=== PATIENT | male | born 1935 | race Caucasian/White ===

== ENCOUNTER 2017-03-17 10:21 | Inpatient (IN) | payer MEDICARE, BC ==
[2017-03-17] MEDS ORDERED: ACETAMINOPHEN IV (For NPO) 1,000 MG in EMPTY BAG 1 BAG IVPB STA (10:26)
[2017-03-17] MEDS ORDERED: SODIUM CHLORIDE 0.9% 1,000 ML IV STA ×2 (10:26)
[2017-03-17] MEDS ORDERED: ONDANSETRON 4 MG/2 ML VIAL IVP STA (10:26)
[2017-03-17] MEDS ORDERED: IPRATROPIUM-ALBUTEROL 3 ML NEB INHALATION STA (10:29)
--- NOTE | 2017-03-17 10:29 | ED ---
General Adult HPI - General Chief complaint: Abdominal Pain Stated complaint: Abd Pain, Headache Time Seen by Provider: 03/17/17 10:26 Source: patient, RN notes reviewed, old records reviewed Mode of arrival: wheelchair Limitations: no limitations - History of Present Illness Initial comments: This is a 82-year-old male to the ER for evaluation. Patient presents today for evaluation regarding fever. Patient also complains of Bowel pain, headache. Patient denies diarrhea, no nausea or vomiting. Patient has had occasional cough but no significant shortness of breath. No chest pain. Patient has no recent change in medication. Patient is denying any shortness of breath. No diarrhea. No vomiting. No travel history no sick contacts are known. - Related Data Home Medications Medication Instructions Recorded Confirmed Atorvastatin [Lipitor] 20 mg PO QAM 03/19/15 03/17/17 Latanoprost 1 drop BOTH EYES HS 03/19/15 03/17/17 Lisinopril-Hctz 20-25 mg 0.5 tab PO DAILY 03/19/15 03/17/17 [Zestoretic 20-25] Verapamil Sr [Isoptin Sr] 240 mg PO DAILY 03/19/15 03/17/17 glipiZIDE [Glipizide Xl] 10 mg PO DAILY 03/19/15 03/17/17 predniSONE [Prednisone] 5 mg PO DAILY 03/19/15 03/17/17 Vit C/E/Zn/Coppr/Lutein/Zeaxan 1 cap PO BID 03/17/17 03/17/17 [Preservision Areds 2 Softgel] Allergies Allergy/AdvReac Type Severity Reaction Status Date / Time No Known Allergies Allergy Verified 03/17/17 11:11 Review of Systems ROS Statement: Those systems with pertinent positive or pertinent negative responses have been documented in the HPI. ROS Other: All systems not noted in ROS Statement are negative. Past Medical History Past Medical History: Atrial Fibrillation, Coronary Artery Disease (CAD), Cancer , COPD, Diabetes Mellitus, GERD/Reflux, Hyperlipidemia, Hypertension, Myocardial Infarction ([place]), Osteoarthritis (OA), Prostate Disorder, Renal Disease Additional Past Medical History / Comment(s): chronic and recurrent urinary tract infections,diverticulitis, previous history of bowel perforation had a colostomt since reversed, BPH,renal cancer(lt), skin cancer, tremors(non parkinsons),glaucoma ,chronic back pain, bronchits,emphysemas, uses 02 2 liters n/c prn, hiatal hernia, constipation-last bm 2 days ago, PNE VACCINE AFTER THE AGE OF 65-NOT SURE OF DATE Last Myocardial Infarction Date:: 1996? History of Any Multi-Drug Resistant Organisms: None Reported Past Surgical History: Appendectomy, Bowel Resection, Heart Catheterization With Stent, Hernia Repair, Prostate Surgery Additional Past Surgical History / Comment(s): nephrectomy(lt), lung bx-neg,x2 cardiac stents -per pts thinks it around 1996, basal cell skin ca removed, cheryl cataracts,bowel sx 8 inches removed had colostomy since removed past med hx stated still has metal clip left in place.skin grafts rt arm-pt fell into hot tar on construction site. Past Anesthesia/Blood Transfusion Reactions: No Reported Reaction Date of Last Stent Placement:: NA Past Psychological History: No Psychological Hx Reported Smoking Status: Former smoker Past Alcohol Use History: Rare Past Drug Use History: None Reported - Past Family History Father Family Medical History: Osteoarthritis (OA), Pneumonia Additional Family Medical History / Comment(s): from pne after hip sx Mother Family Medical History: Cancer Additional Family Medical History / Comment(s): throat cancer General Exam Limitations: no limitations General appearance: alert, in no apparent distress Head exam: Present: atraumatic, normocephalic, normal inspection Eye exam: Present: normal appearance, PERRL, EOMI. Absent: scleral icterus, conjunctival injection, periorbital swelling ENT exam: Present: normal exam, mucous membranes moist Neck exam: Present: normal inspection, tenderness (Generalized). Absent: meningismus, lymphadenopathy Respiratory exam: Present: normal lung sounds bilaterally. Absent: respiratory distress, wheezes, rales, rhonchi, stridor Cardiovascular Exam: Present: normal rhythm, tachycardia, normal heart sounds. Absent: systolic murmur, diastolic murmur, rubs, gallop, clicks GI/Abdominal exam: Present: soft, normal bowel sounds. Absent: distended, tenderness, guarding, rebound, rigid Extremities exam: Present: normal inspection, full ROM, normal capillary refill. Absent: tenderness, pedal edema, joint swelling, calf tenderness Back exam: Present: normal inspection Neurological exam: Present: alert, oriented X3, CN II-XII intact Psychiatric exam: Present: normal affect, normal mood Skin exam: Present: warm, dry, intact, normal color. Absent: rash Course Vital Signs 03/17/17 03/17/17 03/17/17 10:21 11:16 11:25 Temperature 100.5 F H 100.1 F H Pulse Rate 145 H 130 H 126 H Respiratory 18 18 Rate Blood Pressure 123/73 123/63 O2 Sat by Pulse 92 L 94 L Oximetry 03/17/17 03/17/17 03/17/17 11:34 12:15 12:45 Temperature 99.8 F H Pulse Rate 130 H 133 H 124 H Respiratory 26 H 26 H Rate Blood Pressure 90/42 102/51 O2 Sat by Pulse 95 94 L Oximetry EKG Findings - EKG Comments: EKG Findings:: EKG shows sinus tachycardia rate of 142, MD 118, QRS 78, QTC 452 Medical Decision Making - Medical Decision Making 8 emailed the ER for reevaluation of fever and abdominal pain, persistent urinary tract infection, fever. We'll admit for monitoring of hemodynamic status, IV resuscitation and IV antibiotics - Lab Data Result diagrams: 03/17/17 10:36 03/17/17 10:36 Lab Results 03/17/17 03/17/17 03/17/17 Range/Units 10:36 10:36 10:36 WBC 24.5 H (3.8-10.6) k/uL RBC 5.26 (4.30-5.90) m/uL Hgb 16.4 (13.0-17.5) gm/dL Hct 48.1 (39.0-53.0) % MCV 91.4 (80.0-100.0) fL MCH 31.3 (25.0-35.0) pg MCHC 34.2 (31.0-37.0) g/dL RDW 14.7 (11.5-15.5) % Plt Count 136 L (150-450) k/uL Neutrophils % 87 % Lymphocytes % 6 % Monocytes % 5 % Eosinophils % 0 % Basophils % 0 % Neutrophils # 21.4 H (1.3-7.7) k/uL Lymphocytes # 1.5 (1.0-4.8) k/uL Monocytes # 1.3 H (0-1.0) k/uL Eosinophils # 0.0 (0-0.7) k/uL Basophils # 0.1 (0-0.2) k/uL PT (9.0-12.0) sec INR (<1.2) APTT (22.0-30.0) sec Sodium 138 (137-145) mmol/L Potassium 4.7 (3.5-5.1) mmol/L Chloride 102 (98-107) mmol/L Carbon Dioxide 25 (22-30) mmol/L Anion Gap 11 mmol/L BUN 29 H (9-20) mg/dL Creatinine 1.37 H (0.66-1.25) mg/dL Est GFR (MDRD) Af Amer >60 (>60 ml/min/1.73 sqM) Est GFR (MDRD) Non-Af 50 (>60 ml/min/1.73 sqM) Glucose 167 H (74-99) mg/dL Plasma Lactic Acid Jak (0.7-2.0) mmol/L Calcium 9.2 (8.4-10.2) mg/dL Total Bilirubin 2.0 H (0.2-1.3) mg/dL AST 27 (17-59) U/L ALT 34 (21-72) U/L Alkaline Phosphatase 76 (38-126) U/L Total Creatine Kinase 23 L (55-170) U/L CK-MB (CK-2) 0.8 (0.0-2.4) ng/mL CK-MB (CK-2) Rel Index 3.5 Troponin I <0.012 (0.000-0.034) ng/mL Total Protein 6.4 (6.3-8.2) g/dL Albumin 3.8 (3.5-5.0) g/dL Amylase 64 (30-110) U/L Lipase 66 (23-300) U/L Urine Color Urine Appearance (Clear) Urine pH (5.0-8.0) Ur Specific [place] (1.001-1.035) Urine Protein (Negative) Urine Glucose (UA) (Negative) Urine Ketones (Negative) Urine Blood (Negative) Urine Nitrite (Negative) Urine Bilirubin (Negative) Urine Urobilinogen (<2.0) mg/dL Ur Leukocyte Esterase (Negative) Urine RBC (0-5) /hpf Urine WBC (0-5) /hpf Urine WBC Clumps (None) /hpf Urine Bacteria (None) /hpf Urine Mucus (None) /hpf 03/17/17 03/17/17 03/17/17 Range/Units 10:36 10:36 10:50 WBC (3.8-10.6) k/uL RBC (4.30-5.90) m/uL Hgb (13.0-17.5) gm/dL Hct (39.0-53.0) % MCV (80.0-100.0) fL MCH (25.0-35.0) pg MCHC (31.0-37.0) g/dL RDW (11.5-15.5) % Plt Count (150-450) k/uL Neutrophils % % Lymphocytes % % Monocytes % % Eosinophils % % Basophils % % Neutrophils # (1.3-7.7) k/uL Lymphocytes # (1.0-4.8) k/uL Monocytes # (0-1.0) k/uL Eosinophils # (0-0.7) k/uL Basophils # (0-0.2) k/uL PT 11.8 (9.0-12.0) sec INR 1.2 H (<1.2) APTT 26.3 (22.0-30.0) sec Sodium (137-145) mmol/L Potassium (3.5-5.1) mmol/L Chloride (98-107) mmol/L Carbon Dioxide (22-30) mmol/L Anion Gap mmol/L BUN (9-20) mg/dL Creatinine (0.66-1.25) mg/dL Est GFR (MDRD) Af Amer (>60 ml/min/1.73 sqM) Est GFR (MDRD) Non-Af (>60 ml/min/1.73 sqM) Glucose (74-99) mg/dL Plasma Lactic Acid Jak 2.3 H* (0.7-2.0) mmol/L Calcium (8.4-10.2) mg/dL Total Bilirubin (0.2-1.3) mg/dL AST (17-59) U/L ALT (21-72) U/L Alkaline Phosphatase (38-126) U/L Total Creatine Kinase (55-170) U/L CK-MB (CK-2) (0.0-2.4) ng/mL CK-MB (CK-2) Rel Index Troponin I (0.000-0.034) ng/mL Total Protein (6.3-8.2) g/dL Albumin (3.5-5.0) g/dL Amylase (30-110) U/L Lipase (23-300) U/L Urine Color Yellow Urine Appearance Turbid (Clear) Urine pH 5.5 (5.0-8.0) Ur Specific [place] 1.018 (1.001-1.035) Urine Protein 2+ H (Negative) Urine Glucose (UA) Trace H (Negative) Urine Ketones Negative (Negative) Urine Blood Moderate H (Negative) Urine Nitrite Positive (Negative) Urine Bilirubin Negative (Negative) Urine Urobilinogen <2.0 (<2.0) mg/dL Ur Leukocyte Esterase Large H (Negative) Urine RBC 49 H (0-5) /hpf Urine WBC >182 H (0-5) /hpf Urine WBC Clumps Many H (None) /hpf Urine Bacteria Rare H (None) /hpf Urine Mucus Rare H (None) /hpf - Radiology Data Radiology results: report reviewed (Chest x-ray shows possible pneumonia CT abdomen and pelvis is negative for abdominal disease), image reviewed Critical Care Time Critical Care Time: Yes Total Critical Care Time: 31 Disposition Clinical Impression: Abdominal pain, Fever of unknown origin, UTI (urinary tract infection), COPD ( chronic obstructive pulmonary disease), Fever Disposition: ADMITTED IP TO THIS HOSP Condition: Serious
[2017-03-17 10:59] LABS: ALT 34 U/L (21-72); AST 27 U/L (17-59); Alkaline Phosphatase 76 U/L (38-126); Amylase 64 U/L (30-110); Anion Gap 11 mmol/L; Blood Urea Nitrogen 29 mg/dL (9-20); Calcium 9.2 mg/dL (8.4-10.2); Carbon Dioxide 25 mmol/L (22-30); Chloride 102 mmol/L (98-107); Glucose 167 mg/dL (74-99); Non-African American GFR(MDRD) 50 (>60 ml/min/1.73 sqM); Sodium 138 mmol/L (137-145); Total Protein 6.4 g/dL (6.3-8.2)
[2017-03-17 11:02] LABS: INR 1.2 (<1.2); Partial Thromboplastin Time 26.3 sec (22.0-30.0); Prothrombin Time 11.8 sec (9.0-12.0)
[2017-03-17 11:03] LABS: Potassium 4.7 mmol/L (3.5-5.1)
[2017-03-17 11:04] LABS: Appearance,Urine Turbid (Clear); Bacteria,Urine Rare /hpf; Bilirubin,Urine Negative (Negative); Glucose,Urine (UA) Trace (Negative); Ketones,Urine Negative (Negative); Leukocyte Esterase,Urine Large (Negative); Mucus,Urine Rare /hpf; Nitrite,Urine Positive (Negative); PH, Urine 5.5 (5.0-8.0); Particle Count 10954; Protein,Urine 2+ (Negative); RBC,Urine 49 /hpf (0-5); Specific Gravity,Urine 1.018 (1.001-1.035); UA Billing (MACRO vs. MICRO) MICRO; Urobilinogen,Urine <2.0 mg/dL (<2.0); WBC,Urine >182 /hpf (0-5)
--- NOTE | 2017-03-17 11:10 | XR ---
EXAMINATION TYPE: XR abdomen acute w cxr DATE OF EXAM: 03/17/2017 COMPARISON: 06/18/2016 HISTORY: Body aches and fever TECHNIQUE: Supine, upright, and left side down lateral decubitus views of the abdomen are obtained. FINDINGS: Left lower lobe infiltrate and small effusion. Hyperinflation suggests COPD. Arthropathy of the shoulders. Atherosclerotic change of the aorta. Postsurgical changes in the abdomen and pelvis. Arthropathy of the hips and vascular calcifications n oted. Degenerative change of the spine. Bowel gas pattern nonspecific with no diagnostic evidence of obstruction. IMPRESSION: 1. Nonspecific abdomen. 2. Left lower lobe atelectasis or early infiltrate. Correlate clinically..
[2017-03-17 11:12] LABS: Basophils # (A) 0.1 k/uL (0-0.2); Basophils % (A) 0 %; CH 31.7; CHCM 34.9; Eosinophils % (A) 0 %; HCT 48.1 % (39.0-53.0); HDW 3.16; HGB 16.4 gm/dL (13.0-17.5); Luc # (Auto) 0.19; Luc % (Auto) 1; Lymphocytes # (A) 1.5 k/uL (1.0-4.8); Lymphocytes % (A) 6 %; MCH 31.3 pg (25.0-35.0); MCHC 34.2 g/dL (31.0-37.0); MCV 91.4 fL (80.0-100.0); Mean Platelet Volume 7.1; Monocytes # (A) 1.3 k/uL (0-1.0); Monocytes % (A) 5 %; Neutrophils # (A) 21.4 k/uL (1.3-7.7); Neutrophils % (A) 87 %; RBC 5.26 m/uL (4.30-5.90); RDW 14.7 % (11.5-15.5); WBC 24.5 k/uL (3.8-10.6); WBC (Perox) 24.32
[2017-03-17 11:15] LABS: Creatine Kinase 23 U/L (55-170)
[2017-03-17 11:28] LABS: Creatine Kinase MB 0.8 ng/mL (0.0-2.4); Troponin I <0.012 ng/mL (0.000-0.034)
[2017-03-17] MEDS ORDERED: cefTRIAXone 2,000 MG in SODIUM CHLORIDE 0.9% 100 ML IVPB STA (11:30)
[2017-03-17] MEDS ORDERED: RX INFO: IV CONTRAST WAS GIVEN 1 EACH MISC MISCELLANE PRN (11:30)
[2017-03-17] MEDS ORDERED: IPRATROPIUM-ALBUTEROL 3 ML NEB INHALATION PRN (12:14)
[2017-03-17] MEDS: SODIUM CHLORIDE 0.9% 500 ML IV SCH ×3 (12:21→13:25)
--- NOTE | 2017-03-17 12:39 | CT ---
EXAMINATION TYPE: CT abdomen pelvis w con DATE OF EXAM: 03/17/2017 COMPARISON: Prior CT 04/18/2016 HISTORY: Abdominal pain CT DLP: 634.5 mGycm Automated exposure control for dose reduction was used. TECHNIQUE: Helical acquisition of images from the lung bases through the pelvis have been completed. CONTRAST: Performed with IV Contrast, patient injected with 80 mL of Visipaque 320. FINDINGS: LUNG BASES: Extensive scarring is again noted as on previous exam. AORTA: Atheromatous changes are present. LIVER/GB: Liver shows low attenuation possibly due to fatty infiltration and there are hypodense foci within the left lobe which are subcentimeter in size of questionable clinical significance, gallblad linda is unremarkable. PANCREAS: No significant abnormality is seen. SPLEEN: The spleen is enlarged. ADRENALS: No significant abnormality is seen. KIDNEYS: Patient is status post left nephrectomy, surgical clips are present in the left upper quadra nt. Right kidney shows no mass or hydronephrosis. REPRODUCTIVE ORGANS: Prostate gland is enlarged. Suspect a small left inguinal hernia. In the right i nguinal region there is a stable inflammatory appearance. BOWEL: No significant abnormality is seen. FREE AIR: No Free Air visible. ASCITES: None visible. PELVIC ADENOPATHY: None visualized. RETROPERITONEAL ADENOPATHY: No Retroperitoneal Adenopathy visible. URINARY BLADDER: Shows an abnormally thickened wall, suspect a diverticulum to the left of midline. Multiple surgical clips again noted in the pelvis. OSSEOUS STRUCTURES: Stable Surgical clips scattered in the abdomen IMPRESSION: POSTOP CHANGES. SPLENOMEGALY. FINDINGS COMPATIBLE WITH CHRONIC BLADDER OUTLET OBSTRUCTION. ESSENTIALL Y STABLE EXAM.
[2017-03-17] MEDS: SODIUM CHLORIDE 0.9% 1,000 ML IV SCH (13:36)
[2017-03-17 16:52] LABS: Glucose,Whole Blood 152 mg/dL (75-99)
[2017-03-17] MEDS: VIT A,C & E-LUTEIN-MINERALS 1 EACH TAB PO SCH (17:11)
[2017-03-17] MEDS: ACETAMINOPHEN TAB 325 MG TAB PO PRN ×2 (18:09→23:27)
[2017-03-17 21:07] LABS: Glucose,Whole Blood 186 mg/dL (75-99)
[2017-03-17] MEDS: LATANOPROST 0.005% OPHTH DROPS 2.5 ML BTL BOTH EYES SCH (21:29)
[2017-03-17] MEDS: HYDROCORTISONE SUCCINATE 100 MG/2 ML VIAL IV SCH (21:30)
[2017-03-17 21:39] LABS: Hemoglobin A1C 5.8 % (4.2-6.1)
--- NOTE | 2017-03-17 21:48 | HP ---
HISTORY AND PHYSICAL DATE OF ADMISSION: 03/17/2017 PRESENTING COMPLAINT: Fever. HISTORY OF PRESENTING COMPLAINT: This is an 82-year-old patient who follows with Dr. Morocho. Chronic stable medical conditions include hyperlipidemia, COPD, hypertension, GERD, coronary artery disease with stent, osteoarthritis. The patient presents with 2 days of increasing fever, nausea, lower abdominal pain, difficulty in urine, some chills. Patient found to have rather infected-appearing urine in the ER, septic picture. Started on IV fluids, antibiotics and admitted for the same. REVIEW OF SYSTEMS: CONSTITUTIONAL: Weak, tired, nausea. HEENT: None. RESPIRATORY: None. CARDIOVASCULAR as above. GASTROINTESTINAL: As above. GENITOURINARY: As above. MUSCULOSKELETAL: Pain in the joints. DERMATOLOGICAL: None. HEMATOLOGICAL: None. LYMPHATIC: None. PSYCHIATRY: None. NEUROLOGICAL none. PAST MEDICAL HISTORY: Hypertension, COPD, hypertension, hyperlipidemia, GERD, coronary artery disease with stent, osteoarthritis. Past medical history also includes kidney disease, recurrent UTI, diverticulitis, BPH with prostatectomy, left renal cancer, tremors, right eye macular degeneration, chronic low back pain, home oxygen on 2L, hiatal hernia. PAST SURGICAL HISTORY: Appendectomy, bowel resection, cardiac cath with stent, hernia repair, left nephrectomy, lung biopsy negative, prostatectomy, 2 cardiac stents, basal cell cancer, 8 inches of bowel removed, left inguinal hernia repair, skin graft right arm. SOCIAL HISTORY: , raising an 8-year-old grandson who has autism and blindness. Patient smoked for 30 years, 1 pack a day, stopped in 1987. FAMILY HISTORY: Osteoarthritis. HOME MEDICATIONS: 1. PreserVision AREDS 2 soft gel 1 capsule p.o. b.i.d. 2. Prednisone 5 mg p.o. daily. 3. Glipizide XL 10 mg p.o. daily. 4. Verapamil SR 240 mg daily. 5. Zestoretic 20/25, 1/2 tablet daily. 6. Latanoprost 1 drop to both eyes q.h.s. 7. Lipitor 20 mg daily. ALLERGIES: None. PHYSICAL EXAMINATION: VITAL SIGNS: On presentation, temperature 100.5, pulse 145, respirations 18, blood pressure 123/73, pulse ox 92% room air. GENERAL APPEARANCE: Average built, lying in bed, not in distress. EYES: Pupils equal. Conjunctivae normal. HEENT: Oral cavity normal. NECK: JVD not raised. Mass not palpable. RESPIRATORY: Effort normal. LUNGS: Slightly decreased breath sounds. CARDIOVASCULAR: 1st and 2nd sounds normal. No edema. ABDOMEN: Suprapubic tenderness. No guarding or rigidity. Liver, spleen not palpable. LYMPHATIC: No lymph node palpable in neck or axillae. PSYCHIATRY: Alert and oriented x3. Mood and affect were normal. NEUROLOGICAL: Pupils appear grossly intact. Power and sensation grossly intact. Some baseline tremors are present. INVESTIGATIONS: White count 24.5, hemoglobin 16.4. Potassium 4.7, BUN 29, creatinine 1.37. Patient's BUN and creatinine are 17/1.3. ASSESSMENT: 1. Acute urinary tract infection with severe sepsis, present on admission. 2. Acute renal failure probably from sepsis with lactic acidosis. 3. Coronary artery disease, prior history of stent. 4. Gastroesophageal reflux disease. 5. Hyperlipidemia. 6. Essential hypertension. 7. Primary osteoarthritis, multiple joints, bilateral. 8. 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 9. Essential tremors. 10.Chronic low back pain. 11.Hiatal hernia. 12.Chronic hypoxic respiratory failure, uses 2L oxygen at home, from underlying chronic obstructive pulmonary disease. 13.Chronic obstructive pulmonary disease in an ex-smoker. 14.Probable acute cystitis from urinary tract infection. PLAN: Home medications are resumed. Accu-Cheks will be followed. Will give the patient a stress dose of steroids. The patient is on IV ceftriaxone for antibiotics, also getting IV fluids. Care was discussed with the patient. Questions were answered. Will get a surgical opinion given the patient's lower abdominal pain. Most likely, appears to be from cystitis. MMODL / IJN: [id number] /
[2017-03-18 01:38] LABS: Basophils % (A) 0 %; CH 32.3; CHCM 34.9; Eosinophils % (A) 0 %; HCT 40.5 % (39.0-53.0); HDW 3.31; HGB 13.6 gm/dL (13.0-17.5); Luc % (Auto) 1; Lymphocytes # (A) 0.6 k/uL (1.0-4.8); Lymphocytes % (A) 3 %; MCH 31.5 pg (25.0-35.0); MCHC 33.7 g/dL (31.0-37.0); MCV 93.5 fL (80.0-100.0); Mean Platelet Volume 7.1; Monocytes # (A) 0.6 k/uL (0-1.0); Monocytes % (A) 4 %; Neutrophils # (A) 15.7 k/uL (1.3-7.7); Neutrophils % (A) 92 %; RBC 4.33 m/uL (4.30-5.90); RDW 15.8 % (11.5-15.5); WBC (Perox) 18.36
[2017-03-18 02:30] LABS: Anion Gap 7 mmol/L; Blood Urea Nitrogen 20 mg/dL (9-20); Calcium 7.5 mg/dL (8.4-10.2); Carbon Dioxide 24 mmol/L (22-30); Chloride 109 mmol/L (98-107); Glucose 204 mg/dL (74-99); Non-African American GFR(MDRD) 56 (>60 ml/min/1.73 sqM); Potassium 4.5 mmol/L (3.5-5.1); Sodium 140 mmol/L (137-145)
[2017-03-18 06:01] LABS: Glucose,Whole Blood 116 mg/dL (75-99)
[2017-03-18] MEDS: SODIUM CHLORIDE 0.9% 1,000 ML IV SCH ×4 (06:59→16:43)
[2017-03-18] MEDS: glipiZIDE 5 MG TAB PO SCH ×2 (07:00→16:48)
[2017-03-18] MEDS: HYDROCORTISONE SUCCINATE 100 MG/2 ML VIAL IV SCH ×3 (07:00→23:51)
[2017-03-18] MEDS: INSULIN LISPRO (humaLOG) 300 UNIT/3 ML VIAL SQ SCH ×4 (07:01→20:38)
[2017-03-18] MEDS: VIT A,C & E-LUTEIN-MINERALS 1 EACH TAB PO SCH ×2 (07:01→16:49)
[2017-03-18] MEDS: ENOXAPARIN 40 MG/0.4 ML SYRINGE SQ SCH (07:48)
[2017-03-18] MEDS: VERAPAMIL SR 240 MG TABLET.ER PO SCH (07:49)
[2017-03-18] MEDS: ATORVASTATIN 20 MG TAB PO SCH (07:49)
[2017-03-18] MEDS ORDERED: LISINOPRIL-HCTZ 20-25 MG 1 EACH TAB PO SCH (09:00)
--- NOTE | 2017-03-18 10:52 | P.GSCN ---
History of Present Illness Consult date: 03/18/17 Reason for Consult: Abdominal pain History of present illness: 82-year-old gentleman seen and examined at the request of the attending for surgical eval abdominal pain. Patient states for the last several days he has been experiencing lower abdominal pain difficulty in urinating fever chills and a nausea sensation. Patient presented to the emergency room on March 17 with a chief complaint of developing abdominal pain "I just did not feel well. Patient denied any chest pain dizziness lightheadedness or shortness of breath. Patient denied any change in bowel habit denied diarrhea loose stools constipation no nausea no vomiting. did report having a sensation of fever at home did not take his temperature in the emergency room the temp was noted to be 100.5 tachycardic heart rate in the 140s white count was elevated 24.4. Patient was seen in the emergency room started on IV resuscitation and IV antibiotics admitted for fever with abdominal pain patient was treated for sepsis suspect due to the persistent urinary tract infection CAT scan of the abdomen and pelvis with contrast report showed postop changes findings compatible with chronic bladder outlet obstruction essentially stable exam. Patient does have a history of having a left nephrectomy for cancer done at [facility] several years ago. Additionally states greater than 20 years ago had abdominal surgery on the bowel not certain of the details no other surgical procedures except as mentioned Review of Systems Essentially unremarkable except as mentioned in the present illness Past Medical History Past Medical History: Atrial Fibrillation, Coronary Artery Disease (CAD), Cancer , COPD, Eye Disorder, GERD/Reflux, Hyperlipidemia, Hypertension, Myocardial Infarction ([place]), Osteoarthritis (OA), Pneumonia, Renal Disease, Respiratory Disorder Additional Past Medical History / Comment(s): chronic and recurrent urinary tract infections, UTI with sepsis, diverticulitis, previous history of bowel perforation had a colostomy since reversed, BPH-prostatectomy, renal cancer (lt) , skin cancer with removal, tremors(non parkinsons), bilateral glaucoma, R eye macular degeneration, chronic back pain, bronchits, uses 02 2 liters n/c prn, hiatal hernia. Last Myocardial Infarction Date:: 1999 History of Any Multi-Drug Resistant Organisms: None Reported Past Surgical History: Appendectomy, Bowel Resection, Heart Catheterization With Stent, Hernia Repair, Prostate Surgery Additional Past Surgical History / Comment(s): nephrectomy(lt), lung bx-neg, prostatectomy, 2 cardiac stents, basal cell skin ca removed, cheryl cataracts, L eye steel shard removed, bowel sx 8 inches removed had colostomy since reversed - past med hx stated still has metal clip left in place, L inguinal hernia repair, skin grafts rt arm-pt fell into hot tar on construction site. Past Anesthesia/Blood Transfusion Reactions: No Reported Reaction Date of Last Stent Placement:: 1999 Smoking Status: Former smoker - Past Family History Father Family Medical History: Osteoarthritis (OA), Pneumonia Additional Family Medical History / Comment(s): from pne after hip sx Mother Family Medical History: Cancer Additional Family Medical History / Comment(s): throat cancer Medications and Allergies Home Medications Medication Instructions Recorded Confirmed Type Atorvastatin [Lipitor] 20 mg PO QAM 03/19/15 03/17/17 History Latanoprost 1 drop BOTH EYES HS 03/19/15 03/17/17 History Lisinopril-Hctz 20-25 mg 0.5 tab PO DAILY 03/19/15 03/17/17 History [Zestoretic 20-25] Verapamil Sr [Isoptin Sr] 240 mg PO DAILY 03/19/15 03/17/17 History glipiZIDE [Glipizide Xl] 10 mg PO DAILY 03/19/15 03/17/17 History predniSONE [Prednisone] 5 mg PO DAILY 03/19/15 03/17/17 History Vit C/E/Zn/Coppr/Lutein/Zeaxan 1 cap PO BID 03/17/17 03/17/17 History [Preservision Areds 2 Softgel] Allergies Allergy/AdvReac Type Severity Reaction Status Date / Time No Known Allergies Allergy Verified 03/17/17 11:11 Surgical - Exam Vital Signs Temp Pulse Resp BP Pulse Ox 100.5 F H 145 H 18 123/73 92 L 03/17/17 10:21 03/17/17 10:21 03/17/17 10:21 03/17/17 10:21 03/17/17 10:21 GENERAL APPEARANCE: 82-year-old male pleasant cooperative sitting up on the edge of the bed states abdominal discomfort significantly improved alert, oriented, in no acute distress. VITAL SIGNS: Reviewed HEENT: Head is normocephalic and atraumatic. Pupils are equal and reactive. The nares are patent. Oropharynx is clear without lesions. NECK: Supple without lymphadenopathy. Traches midline. HEART: S1, S2. Regular rate and rhythm. Monitor sinus tach heart rate in the 120s LUNGS: No crackles or wheezes are heard. Diminished at the bases otherwise adequate air movement sats on 2 L 96% no cough noted ABDOMEN: Soft, nontender, nondistended with good bowel sounds. No peritoneal signs. No palpable organomegaly or masses. Well-healed surgical scar mid lower abdomen no facial grimacing with palpitation to the abdominal wall states urinating no difficulty EXTREMITIES: Normal skin color and turgor. No cyanosis, rash, ulceration, clubbing or edema. Radial pedal pulses are 2/4 bilaterally. Fine tremors noted to the hands patient states is chronic NEUROLOGICAL: No focal deficits. Strength and sensation are grossly intact. Results - Labs 03/18/17 01:15 03/18/17 01:15 Abnormal Lab Results - Last 24 Hours (Table) 03/17/17 03/17/17 03/17/17 Range/Units 10:36 10:36 10:36 WBC 24.5 H (3.8-10.6) k/uL RDW (11.5-15.5) % Plt Count 136 L (150-450) k/uL Neutrophils # 21.4 H (1.3-7.7) k/uL Lymphocytes # (1.0-4.8) k/uL Monocytes # 1.3 H (0-1.0) k/uL INR (<1.2) Chloride (98-107) mmol/L BUN 29 H (9-20) mg/dL Creatinine 1.37 H (0.66-1.25) mg/dL Glucose 167 H (74-99) mg/dL POC Glucose (mg/dL) (75-99) mg/dL Plasma Lactic Acid Jak (0.7-2.0) mmol/L Calcium (8.4-10.2) mg/dL Total Bilirubin 2.0 H (0.2-1.3) mg/dL Total Creatine Kinase 23 L (55-170) U/L Urine Protein (Negative) Urine Glucose (UA) (Negative) Urine Blood (Negative) Ur Leukocyte Esterase (Negative) Urine RBC (0-5) /hpf Urine WBC (0-5) /hpf Urine WBC Clumps (None) /hpf Urine Bacteria (None) /hpf Urine Mucus (None) /hpf 03/17/17 03/17/17 03/17/17 Range/Units 10:36 10:36 10:50 WBC (3.8-10.6) k/uL RDW (11.5-15.5) % Plt Count (150-450) k/uL Neutrophils # (1.3-7.7) k/uL Lymphocytes # (1.0-4.8) k/uL Monocytes # (0-1.0) k/uL INR 1.2 H (<1.2) Chloride (98-107) mmol/L BUN (9-20) mg/dL Creatinine (0.66-1.25) mg/dL Glucose (74-99) mg/dL POC Glucose (mg/dL) (75-99) mg/dL Plasma Lactic Acid Jak 2.3 H* (0.7-2.0) mmol/L Calcium (8.4-10.2) mg/dL Total Bilirubin (0.2-1.3) mg/dL Total Creatine Kinase (55-170) U/L Urine Protein 2+ H (Negative) Urine Glucose (UA) Trace H (Negative) Urine Blood Moderate H (Negative) Ur Leukocyte Esterase Large H (Negative) Urine RBC 49 H (0-5) /hpf Urine WBC >182 H (0-5) /hpf Urine WBC Clumps Many H (None) /hpf Urine Bacteria Rare H (None) /hpf Urine Mucus Rare H (None) /hpf 03/17/17 03/17/17 03/17/17 Range/Units 13:30 16:50 17:20 WBC (3.8-10.6) k/uL RDW (11.5-15.5) % Plt Count (150-450) k/uL Neutrophils # (1.3-7.7) k/uL Lymphocytes # (1.0-4.8) k/uL Monocytes # (0-1.0) k/uL INR (<1.2) Chloride (98-107) mmol/L BUN (9-20) mg/dL Creatinine (0.66-1.25) mg/dL Glucose (74-99) mg/dL POC Glucose (mg/dL) 152 H (75-99) mg/dL Plasma Lactic Acid Jak 2.3 H* 3.0 H* (0.7-2.0) mmol/L Calcium (8.4-10.2) mg/dL Total Bilirubin (0.2-1.3) mg/dL Total Creatine Kinase (55-170) U/L Urine Protein (Negative) Urine Glucose (UA) (Negative) Urine Blood (Negative) Ur Leukocyte Esterase (Negative) Urine RBC (0-5) /hpf Urine WBC (0-5) /hpf Urine WBC Clumps (None) /hpf Urine Bacteria (None) /hpf Urine Mucus (None) /hpf 03/17/17 03/18/17 03/18/17 Range/Units 20:58 01:15 01:15 WBC 17.0 H (3.8-10.6) k/uL RDW 15.8 H (11.5-15.5) % Plt Count 108 L (150-450) k/uL Neutrophils # 15.7 H (1.3-7.7) k/uL Lymphocytes # 0.6 L (1.0-4.8) k/uL Monocytes # (0-1.0) k/uL INR (<1.2) Chloride 109 H (98-107) mmol/L BUN (9-20) mg/dL Creatinine (0.66-1.25) mg/dL Glucose 204 H (74-99) mg/dL POC Glucose (mg/dL) 186 H (75-99) mg/dL Plasma Lactic Acid Jak (0.7-2.0) mmol/L Calcium 7.5 L (8.4-10.2) mg/dL Total Bilirubin (0.2-1.3) mg/dL Total Creatine Kinase (55-170) U/L Urine Protein (Negative) Urine Glucose (UA) (Negative) Urine Blood (Negative) Ur Leukocyte Esterase (Negative) Urine RBC (0-5) /hpf Urine WBC (0-5) /hpf Urine WBC Clumps (None) /hpf Urine Bacteria (None) /hpf Urine Mucus (None) /hpf 03/18/17 Range/Units 05:59 WBC (3.8-10.6) k/uL RDW (11.5-15.5) % Plt Count (150-450) k/uL Neutrophils # (1.3-7.7) k/uL Lymphocytes # (1.0-4.8) k/uL Monocytes # (0-1.0) k/uL INR (<1.2) Chloride (98-107) mmol/L BUN (9-20) mg/dL Creatinine (0.66-1.25) mg/dL Glucose (74-99) mg/dL POC Glucose (mg/dL) 116 H (75-99) mg/dL Plasma Lactic Acid Jak (0.7-2.0) mmol/L Calcium (8.4-10.2) mg/dL Total Bilirubin (0.2-1.3) mg/dL Total Creatine Kinase (55-170) U/L Urine Protein (Negative) Urine Glucose (UA) (Negative) Urine Blood (Negative) Ur Leukocyte Esterase (Negative) Urine RBC (0-5) /hpf Urine WBC (0-5) /hpf Urine WBC Clumps (None) /hpf Urine Bacteria (None) /hpf Urine Mucus (None) /hpf Microbiology - Last 24 Hours (Table) 03/17/17 10:50 Urine Culture - Preliminary Urine,Voided Diabetes panel 03/17/17 03/17/17 03/18/17 Range/Units 10:36 10:36 01:15 Sodium 138 140 (137-145) mmol/L Potassium 4.7 4.5 (3.5-5.1) mmol/L Chloride 102 109 H (98-107) mmol/L Carbon Dioxide 25 24 (22-30) mmol/L BUN 29 H 20 (9-20) mg/dL Creatinine 1.37 H 1.25 (0.66-1.25) mg/dL Glucose 167 H 204 H (74-99) mg/dL Hemoglobin A1c 5.8 (4.2-6.1) % Calcium 9.2 7.5 L (8.4-10.2) mg/dL AST 27 (17-59) U/L ALT 34 (21-72) U/L Alkaline Phosphatase 76 (38-126) U/L Total Protein 6.4 (6.3-8.2) g/dL Albumin 3.8 (3.5-5.0) g/dL Calcium panel 03/17/17 03/18/17 Range/Units 10:36 01:15 Calcium 9.2 7.5 L (8.4-10.2) mg/dL Albumin 3.8 (3.5-5.0) g/dL Pituitary panel 03/17/17 03/18/17 Range/Units 10:36 01:15 Sodium 138 140 (137-145) mmol/L Potassium 4.7 4.5 (3.5-5.1) mmol/L Chloride 102 109 H (98-107) mmol/L Carbon Dioxide 25 24 (22-30) mmol/L BUN 29 H 20 (9-20) mg/dL Creatinine 1.37 H 1.25 (0.66-1.25) mg/dL Glucose 167 H 204 H (74-99) mg/dL Calcium 9.2 7.5 L (8.4-10.2) mg/dL Adrenal panel 03/17/17 03/18/17 Range/Units 10:36 01:15 Sodium 138 140 (137-145) mmol/L Potassium 4.7 4.5 (3.5-5.1) mmol/L Chloride 102 109 H (98-107) mmol/L Carbon Dioxide 25 24 (22-30) mmol/L BUN 29 H 20 (9-20) mg/dL Creatinine 1.37 H 1.25 (0.66-1.25) mg/dL Glucose 167 H 204 H (74-99) mg/dL Calcium 9.2 7.5 L (8.4-10.2) mg/dL Total Bilirubin 2.0 H (0.2-1.3) mg/dL AST 27 (17-59) U/L ALT 34 (21-72) U/L Alkaline Phosphatase 76 (38-126) U/L Total Protein 6.4 (6.3-8.2) g/dL Albumin 3.8 (3.5-5.0) g/dL Assessment and Plan Plan: Impression Present on admission abdominal pain nausea vomiting fever chills suspect due to UTI Present on admission fever chills leukocytosis tachycardic sepsis suspect due to UTI History reoccurring UTIs History of left renal cancer status post left nephrectomy Chronic lower back pain Chronic COPD oxygen dependent 2 L [id number] at home no evidence of exacerbation Known coronary artery disease with prior coronary stenting History of BPH Present on admission acute renal failure suspect due to sepsis Plan No evidence of an acute surgical abdomen Will sign off from a surgical perspective there is no further surgical recommendations will re-eval as indicated Continue recommendations by attending service The above impression and plan of care have been discussed and directed by signing physician. Nichole Gold nurse practitioner acting as scribe for signing physician.
[2017-03-18 12:25] LABS: Glucose,Whole Blood 85 mg/dL (75-99)
--- NOTE | 2017-03-18 13:49 | P.CNPUL ---
History of Present Illness Consult date: 03/18/17 Requesting physician: Nba Kelsey Reason for consult: dyspnea Chief complaint: Abdominal pain weakness History of present illness: This is a very pleasant 82-year-old gentleman who follows with Dr. Morocho as his primary care physician. He has a history of atrial fibrillation, coronary artery disease with previous stent placement, diabetes mellitus, gastroesophageal reflux disease, hyperlipidemia, hypertension, osteoarthritis, diverticulitis with previous bowel perforation with resection and colostomy and subsequent reversal, recurrent urinary tract infections, history of left renal cancer status post nephrectomy. He also has history of oxygen-dependent steroid -dependent chronic obstructive pulmonary disease. He had recently been in our office approximately one month ago and treated for an upper respiratory infection. He had been improved however recently he had been having increasing weakness and some abdominal discomfort. He presented to the emergency room for the same. An abdominal x-ray revealed nonspecific abdomen. There is noted left lower lobe atelectasis or early infiltrate. Computed tomography scan of the abdomen revealed evidence of postoperative changes. There was splenomegaly. Findings compatible with chronic bladder outlet obstruction. No acute process. The patient is seen today in consultation on the selective care unit. He is currently awake and alert in no acute distress. His abdominal discomfort has subsided. Urinalysis reveals 2+ protein moderate blood and large leukocyte and many WBCs in clumps. Urine and blood cultures are pending. Initial white count 24.5, currently 17.0. Initial lactic acid 3.0, currently 1.5. He has been initiated on ceftriaxone. He is maintaining good O2 saturations in the mid 90s on room air. His been afebrile. Hemodynamically stable. Review of Systems 14 point review of system was conducted. All negative other than as mentioned in the HPI. Past Medical History Past Medical History: Atrial Fibrillation, Coronary Artery Disease (CAD), Cancer , COPD, Eye Disorder, GERD/Reflux, Hyperlipidemia, Hypertension, Myocardial Infarction ([place]), Osteoarthritis (OA), Pneumonia, Renal Disease, Respiratory Disorder Additional Past Medical History / Comment(s): chronic and recurrent urinary tract infections, UTI with sepsis, diverticulitis, previous history of bowel perforation had a colostomy since reversed, BPH-prostatectomy, renal cancer (lt) , skin cancer with removal, tremors(non parkinsons), bilateral glaucoma, R eye macular degeneration, chronic back pain, bronchits, uses 02 2 liters n/c prn, hiatal hernia. Last Myocardial Infarction Date:: 1999 History of Any Multi-Drug Resistant Organisms: None Reported Past Surgical History: Appendectomy, Bowel Resection, Heart Catheterization With Stent, Hernia Repair, Prostate Surgery Additional Past Surgical History / Comment(s): nephrectomy(lt), lung bx-neg, prostatectomy, 2 cardiac stents, basal cell skin ca removed, cheryl cataracts, L eye steel shard removed, bowel sx 8 inches removed had colostomy since reversed - past med hx stated still has metal clip left in place, L inguinal hernia repair, skin grafts rt arm-pt fell into hot tar on construction site. Past Anesthesia/Blood Transfusion Reactions: No Reported Reaction Date of Last Stent Placement:: 1999 Smoking Status: Former smoker - Past Family History Father Family Medical History: Osteoarthritis (OA), Pneumonia Additional Family Medical History / Comment(s): from pne after hip sx Mother Family Medical History: Cancer Additional Family Medical History / Comment(s): throat cancer Medications and Allergies Home Medications Medication Instructions Recorded Confirmed Type Atorvastatin [Lipitor] 20 mg PO QAM 03/19/15 03/17/17 History Latanoprost 1 drop BOTH EYES HS 03/19/15 03/17/17 History Lisinopril-Hctz 20-25 mg 0.5 tab PO DAILY 03/19/15 03/17/17 History [Zestoretic 20-25] Verapamil Sr [Isoptin Sr] 240 mg PO DAILY 03/19/15 03/17/17 History glipiZIDE [Glipizide Xl] 10 mg PO DAILY 03/19/15 03/17/17 History predniSONE [Prednisone] 5 mg PO DAILY 03/19/15 03/17/17 History Vit C/E/Zn/Coppr/Lutein/Zeaxan 1 cap PO BID 03/17/17 03/17/17 History [Preservision Areds 2 Softgel] Allergies Allergy/AdvReac Type Severity Reaction Status Date / Time No Known Allergies Allergy Verified 03/17/17 11:11 Physical Exam Vitals: Vital Signs Temp Pulse Pulse Resp BP BP Pulse Ox 03/18/17 12:00 98.5 F 82 18 109/55 93 L 03/18/17 08:00 97.9 F 104 H 18 107/60 99 03/18/17 04:00 98.7 F 80 17 120/72 96 10/04/17 00:00 99.0 F 98 18 115/61 98 03/17/17 20:00 99.2 F 108 H 18 117/62 95 03/17/17 17:54 99.0 F 03/17/17 16:30 116 H 03/17/17 16:20 108 H 03/17/17 16:00 98.9 F 98 18 122/59 95 03/17/17 13:28 99.1 F 119 H 24 99/50 95 Intake and Output 03/17/17 03/18/17 03/18/17 22:59 06:59 14:59 Intake Total 240 125 Output Total 74 Balance 166 125 Intake: Oral 240 125 Output: Post Void Residual 74 Other: Voiding Method Urinal Urinal Urinal # Voids 1 1 Weight 74.3 kg GENERAL EXAM: Obese. Alert, comfortable in no apparent distress. HEAD: Normocephalic. EYES: Normal reaction of pupils, equal size. NOSE: Clear with pink turbinates. THROAT: No erythema or exudates. NECK: No masses, no JVD. CHEST: No chest wall deformity. LUNGS: Equal air entry with no crackles, wheeze, rhonchi or dullness. Diminished. CVS: S1 and S2 normal with no audible murmurs, regular rhythm. ABDOMEN: No hepatosplenomegaly, normal bowel sounds, no guarding or rigidity. SPINE: No scoliosis or deformity SKIN: No rashes CENTRAL NERVOUS SYSTEM: No focal deficits, tone is normal in all 4 extremities. Extremities: There is no significant peripheral edema. No clubbing, no cyanosis. Peripheral pulses are intact. Results - Laboratory Findings CBC and BMP: 03/18/17 01:15 03/18/17 01:15 PT/INR, D-dimer PT 11.8 sec (9.0-12.0) 03/17/17 10:36 INR 1.2 (<1.2) H 03/17/17 10:36 Abnormal lab findings: Abnormal Labs 03/17/17 03/17/17 03/17/17 10:36 10:36 10:36 WBC 24.5 H RDW Plt Count 136 L Neutrophils # 21.4 H Lymphocytes # Monocytes # 1.3 H INR Chloride BUN 29 H Creatinine 1.37 H Glucose 167 H POC Glucose (mg/dL) Plasma Lactic Acid Jak Calcium Total Bilirubin 2.0 H Total Creatine Kinase 23 L Urine Protein Urine Glucose (UA) Urine Blood Ur Leukocyte Esterase Urine RBC Urine WBC Urine WBC Clumps Urine Bacteria Urine Mucus 03/17/17 03/17/17 03/17/17 10:36 10:36 10:50 WBC RDW Plt Count Neutrophils # Lymphocytes # Monocytes # INR 1.2 H Chloride BUN Creatinine Glucose POC Glucose (mg/dL) Plasma Lactic Acid Jak 2.3 H* Calcium Total Bilirubin Total Creatine Kinase Urine Protein 2+ H Urine Glucose (UA) Trace H Urine Blood Moderate H Ur Leukocyte Esterase Large H Urine RBC 49 H Urine WBC >182 H Urine WBC Clumps Many H Urine Bacteria Rare H Urine Mucus Rare H 03/17/17 03/17/17 03/17/17 13:30 16:50 17:20 WBC RDW Plt Count Neutrophils # Lymphocytes # Monocytes # INR Chloride BUN Creatinine Glucose POC Glucose (mg/dL) 152 H Plasma Lactic Acid Jak 2.3 H* 3.0 H* Calcium Total Bilirubin Total Creatine Kinase Urine Protein Urine Glucose (UA) Urine Blood Ur Leukocyte Esterase Urine RBC Urine WBC Urine WBC Clumps Urine Bacteria Urine Mucus 03/17/17 03/18/17 03/18/17 20:58 01:15 01:15 WBC 17.0 H RDW 15.8 H Plt Count 108 L Neutrophils # 15.7 H Lymphocytes # 0.6 L Monocytes # INR Chloride 109 H BUN Creatinine Glucose 204 H POC Glucose (mg/dL) 186 H Plasma Lactic Acid Jak Calcium 7.5 L Total Bilirubin Total Creatine Kinase Urine Protein Urine Glucose (UA) Urine Blood Ur Leukocyte Esterase Urine RBC Urine WBC Urine WBC Clumps Urine Bacteria Urine Mucus 03/18/17 05:59 WBC RDW Plt Count Neutrophils # Lymphocytes # Monocytes # INR Chloride BUN Creatinine Glucose POC Glucose (mg/dL) 116 H Plasma Lactic Acid Jak Calcium Total Bilirubin Total Creatine Kinase Urine Protein Urine Glucose (UA) Urine Blood Ur Leukocyte Esterase Urine RBC Urine WBC Urine WBC Clumps Urine Bacteria Urine Mucus Assessment and Plan Plan: Impression: #1 Urinary tract infection suspected gram-negative bacilli. The patient has had previous urinary tract infections with a Serratia E. coli, Proteus mirabilis and Klebsiella pneumoniae. #2 Acute sepsis secondary to above. #3 History of left renal cancer status post left nephrectomy. #4 Coronary artery disease with previous stent placements. #5 Chronic obstructive pulmonary disease, oxygen dependent, steroid dependent. Currently inactive and stable. #6 Atrial fibrillation, paroxysmal, history of. Currently in sinus rhythm. #7 Hypertension. #8 Hyperlipidemia. 9 Gastroesophageal reflux disease. #10 Diabetes mellitus. #11 History of bowel perforation status post colostomy with subsequent reversal. #12 Remote history of chronic tobacco dependence. #13 History of lung biopsy, negative for malignancy. Plan: The patient was seen and evaluated by Dr. Guzman. The patient is being treated for his sepsis secondary to urinary tract infection. He has no pulmonary complaints currently. He is maintained on ceftriaxone. Blood and urine cultures are pending. He is currently on Lovenox for DVT prophylaxis. We will continue to follow and make further recommendations based on his clinical status. Time with Patient: Greater than 30
--- NOTE | 2017-03-18 15:30 | P.PN ---
Progress Note - Text Progress Note Date: 03/18/17 DATE OF SERVICE: 03/18/2017 PRESENTING COMPLAINT: Fever HISTORY OF PRESENT ILLNESS: 82-year-old male who presented with 2 days of increasing fever nausea and lower abdominal pain difficulty in urination some chills. Urinalysis appeared infected patient appeared septic. Admitted for the same IV fluids antibiotics initiated. INTERVAL HISTORY: 03/18/2017: Patient lying in bed appears comfortable. States he feels better than he did upon admission. Remains afebrile, although has had some transient episodes of tachycardia. No complaints of abdominal pain, tolerating his diet eating between 50 and 75%, ambulatory to and from the bathroom without assistance, no difficulty with urination. REVIEW OF SYSTEMS: Done for constitutional ,cardiovascular, GI, pulmonary with relevant findings as above. CURRENT MEDICATIONS DuoNeb's, Lipitor, ceftriaxone thousand milligrams IV piggyback, Lovenox, Glucotrol, Solu-Cortef 50 mg IV every 8 hours, verapamil 240 mg by mouth daily. PHYSICAL EXAM VITAL SIGNS: Temperature 97.9, pulse 104, respiratory rate 18, blood pressure 107/60, oxygen saturation 99% on 2 L. GENERAL APPEARANCE: Lying in bed, not in distress. EYES: Pupils equal. Conjunctiva normal. NECK: JVD not raised. Mass not palpable. RESPIRATORY: Respiratory effort normal. Lungs diminished to auscultation. CARDIOVASCULAR: First and second sounds normal. No edema. ABDOMEN: Soft. Liver and spleen not palpable. No tenderness. No mass palpable. PSYCHIATRY: Alert and oriented x3. Mood and affect normal. INVESTIGATIONS: ASSESSMENT: -Acute urinary tract infection with severe sepsis, present on admission. -Acute renal failure probably from sepsis and lactic acidosis. -Coronary artery disease, prior history of stent. -Gastroesophageal reflux disease. -Hyperlipidemia. -Essential hypertension. -Primary osteoporosis multiple joints bilateral. 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 -Essential tremors. -Chronic low back pain. -Hiatal hernia. -Chronic hypoxic respiratory failure uses 2 L of oxygen at home, from underlying chronic obstructive pulmonary disease. -Chronic obstructive pulmonary disease in an ex-smoker. -Probable acute cystitis from urinary tract infection. PLAN: Continue stress dose of steroids, IV ceftriaxone and IV fluids to continue. No evidence of an acute surgical abdomen surgical services has signed off. Pulmonology consulted await further recommendations. Plan of care discussed with the patient at the bedside he is in agreement. We will follow closely. CHANGE BOOTH ATTENDANT statement: Patient was seen and examined by nurse practitioner Suzy Burton and all elements of the case discussed with attending Dr. Kelsey
[2017-03-18 16:40] LABS: Glucose,Whole Blood 119 mg/dL (75-99)
[2017-03-18] MEDS: LACTATED RINGERS 1,000 ML IV SCH (16:48)
--- NOTE | 2017-03-18 18:49 | PN ---
PROGRESS NOTE DATE OF SERVICE: 03/18/17. ATTENDING NOTE: This patient was seen and examined by me. I discussed with nurse practitioner, Ms. Burton. Patient admitted with acute severe UTI with sepsis growing gram-negative bacilli. Feeling better. Tolerating a diet. Fevers started to come down. PHYSICAL EXAMINATION: Afebrile. Pulse 104. Respiratory rate 18, blood pressure 107/60. INVESTIGATIONS: White count 17, BUN and creatinine is normal. Urine culture shows gram-negative bacilli. ASSESSMENT: 1. Acute severe urinary tract infection with sepsis growing gram-negative bacilli. 2. Acute cystitis. PLAN: Continue with IV ceftriaxone. Cut back on IV hydrocortisone to mg q8. Cut back on IV fluids. Care was discussed with the patient. Encouraged to be out of bed. MMRAVENL / IJN: [id number] /
[2017-03-18] MEDS: LATANOPROST 0.005% OPHTH DROPS 2.5 ML BTL BOTH EYES SCH (20:38)
[2017-03-18 20:47] LABS: Glucose,Whole Blood 205 mg/dL (75-99)
[2017-03-19] MEDS ORDERED: NITROGLYCERIN SL TABS 0.4 MG TAB SUBLINGUAL ONE (03:04)
[2017-03-19] MEDS ORDERED: NITROGLYCERIN SL TABS 0.4 MG TAB SUBLINGUAL STA (03:06)
[2017-03-19 03:56] LABS: Basophils % (A) 0 %; CH 32.5; CHCM 35.4; Eosinophils % (A) 0 %; HCT 38.8 % (39.0-53.0); HDW 3.26; HGB 13.1 gm/dL (13.0-17.5); Luc # (Auto) 0.08; Luc % (Auto) 1; Lymphocytes # (A) 0.6 k/uL (1.0-4.8); Lymphocytes % (A) 5 %; MCH 31.3 pg (25.0-35.0); MCHC 33.8 g/dL (31.0-37.0); MCV 92.6 fL (80.0-100.0); Mean Platelet Volume 7.8; Monocytes # (A) 0.4 k/uL (0-1.0); Monocytes % (A) 3 %; Neutrophils # (A) 13.1 k/uL (1.3-7.7); Neutrophils % (A) 92 %; RBC 4.19 m/uL (4.30-5.90); RDW 15.5 % (11.5-15.5); WBC 14.2 k/uL (3.8-10.6); WBC (Perox) 14.82
[2017-03-19 04:09] LABS: Anion Gap 7 mmol/L; Blood Urea Nitrogen 28 mg/dL (9-20); Calcium 7.8 mg/dL (8.4-10.2); Carbon Dioxide 21 mmol/L (22-30); Chloride 111 mmol/L (98-107); Glucose 120 mg/dL (74-99); Non-African American GFR(MDRD) >60 (>60 ml/min/1.73 sqM); Potassium 3.9 mmol/L (3.5-5.1); Sodium 139 mmol/L (137-145)
[2017-03-19 06:09] LABS: Glucose,Whole Blood 112 mg/dL (75-99)
[2017-03-19] MEDS: INSULIN LISPRO (humaLOG) 300 UNIT/3 ML VIAL SQ SCH ×4 (06:28→19:54)
[2017-03-19] MEDS: HYDROCORTISONE SUCCINATE 100 MG/2 ML VIAL IV SCH ×2 (08:18→16:36)
[2017-03-19] MEDS: VIT A,C & E-LUTEIN-MINERALS 1 EACH TAB PO SCH ×2 (08:19→17:23)
[2017-03-19] MEDS: ATORVASTATIN 20 MG TAB PO SCH (08:19)
[2017-03-19] MEDS: ENOXAPARIN 40 MG/0.4 ML SYRINGE SQ SCH (08:19)
--- NOTE | 2017-03-19 10:56 | CONS ---
CONSULTATION Mr. Narvaez is an 82-year-old male with a known history of coronary artery disease, history of hypertension, hyperlipidemia, history of diabetes mellitus, bronchiectasis who presented with nausea and vomiting, chest tightness, fever, and hematuria. He was diagnosed with sepsis and urinary tract infection. Cardiology consultation was requested because of symptoms of chest discomfort. The patient was admitted 2 days ago. His fever is better now and he has been treated with antibiotics but prior to admission and yesterday he had chest tightness, that is resolved now. Patient is usually on home oxygen, but apparently was not getting his oxygen earlier. His breathing has been stable. He had no significant dizziness, he has some palpitation. No peripheral edema. No PND or orthopnea. He has underwent cardiac catheterization most recently in 2004, was found to have a preserved systolic function, was mild to moderate triple-vessel disease with calcified coronary arteries. His left ventricular systolic function in the past has been preserved by echocardiography. His last stress test dates back to 2014 and that showed no evidence of inducible ischemia. His coronory risk factor is positive for hypertension, hyperlipidemia, diabetes. He is a non smoker. MEDICATION: At home included aspirin, glipizide 5 mg daily, Lipitor 40 mg daily, lisinopril HCT 10- 12.5 mg daily, prednisone, verapamil SR 180 mg daily, Xalatan and Xanax. REVIEW OF SYSTEMS: RESPIRATORY SYSTEM: He has no recent history of wheezing, but he had a cough. He has history of bronchiectasis. GI SYSTEM: He has no recent GI bleeding. No peptic ulcer disease. SYSTEM: He had the hematuria. NERVOUS SYSTEM: No history of stroke or seizure. PHYSICAL EXAMINATION: He is an 82-year-old male, alert, oriented, in no apparent distress. Blood pressure 124/80 with a heart in the 70s. HEAD: Normocephalic. EYES: Sclerae nonicteric. NECK: Good upstroke. No bruit. LUNGS: Dry crackles bilaterally. HEART: Regular rate and rhythm, S1, S2. No S3 with a systolic murmur at the base. No diastolic murmur. ABDOMEN: Soft, nontender. Positive bowel sounds, no organomegaly. EXTREMITIES: No edema. LAB DATA: BUN and creatinine 28 and 1.1. His creatinine was elevated on presentation is 1.37. His hemoglobin is 13.1, white blood cell is 14.2. He was 24.5 on presentation. His troponin less than 0.012. On admission, his plasma lactic acid was 3.4. His EKG reveals sinus mechanism with sinus tachycardia and PACs on admission. His rate is under good control at this time. There is no evidence of significant tachy arrhythmia, PACs were noted. He had a CT scan that showed splenomegaly and chronic bladder outlet obstruction. IMPRESSION: 1. Chest discomfort of unclear etiology. No clear evidence to suggest acute ischemic event. Some of the exacerbating symptoms could be related to the infectious process and hypoxemia, not having his oxygen on. 2. History of coronary artery disease, status post percutaneous revascularization in the past. His last stress test in 2014 was stable. 3. Urosepsis, improving. 4. History of hypertension. 5. Hyperlipidemia. 6. Diabetes mellitus. RECOMMENDATION: I will obtain echocardiogram with Doppler to evaluate left ventricular systolic function. The patient is receiving stress dose of steroids. I will also add nitrates to his regimen. If he has no further symptoms, then no further cardiac workup will be needed. Thank you for this consult. Will follow with you. MMODL / IJN: [id number] /
[2017-03-19] MEDS: glipiZIDE 5 MG TAB PO SCH ×2 (11:05→17:23)
[2017-03-19] MEDS: ISOSORBIDE MONONITRATE ER 30 MG TAB.ER.24H PO SCH (11:10)
[2017-03-19] MEDS: ASPIRIN 81 MG PO SCH (11:10)
[2017-03-19] MEDS: VERAPAMIL SR 240 MG TABLET.ER PO SCH (11:11)
--- NOTE | 2017-03-19 11:20 | ECHOF ---
Referral Reason:cad MEASUREMENTS -------- HEIGHT: 162.6 cm WEIGHT: 75.3 kg BP: IVSd: 1.8 cm (0.6 - 1.1) LVIDd: 3.9 cm (3.9 - 5.3) LVPWd: 1.3 cm (0.6 - 1.1) IVSs: 2.2 cm LVIDs: 2.7 cm LVPWs: 1.2 cm Ao Diam: 3.5 cm (2.0 - 3.7) AV Cusp: 2.3 cm (1.5 - 2.6) LA Diam: 3.4 cm (2.7 - 3.8) MV EXCURSION: 18.395 mm (> 18.000) MV EF SLOPE: 73 mm/s (70 - 150) EPSS: 0.8 cm MV E Camacho: 1.00 m/s MV DecT: 288 ms MV A Camacho: 0.63 m/s MV E/A Ratio: 1.60 AR PHT: 497 ms RAP: 5.00 mmHg RVSP: 27.39 mmHg FINDINGS -------- Sinus rhythm. This was a technically good study. The left ventricular size is normal. There is moderate concentric left ventricular hypertrophy. Overall left ventricular systolic function is low-normal with, an EF between 50 - 55 %. The right ventricle is normal in size and function. The left atrium is normal in size. The right atrium is normal in size. Aortic valve is trileaflet and is mildly thickened. Trace amount of aortic regurgitation. The mitral valve leaflets are mildly thickened. Mild mitral regurgitation is present. Mild tricuspid regurgitation present. The right ventricular systolic pressure, as measured by Doppler, is 27.39mmHg. Pulmonic valve appears structurally normal. The aortic root size is normal. The inferior vena cava is mildly dilated. The pericardium is normal. CONCLUSIONS -------- 1. Sinus rhythm. 2. Trace amount of aortic regurgitation. 3. The mitral valve leaflets are mildly thickened. 4. Mild mitral regurgitation is present. 5. Mild tricuspid regurgitation present. 6. The right ventricular systolic pressure, as measured by Doppler, is 27.39mmHg. 7. Pulmonic valve appears structurally normal. 8. The aortic root size is normal. 9. The inferior vena cava is mildly dilated. 10. The pericardium is normal. 11. This was a technically good study. 12. The left ventricular size is normal. 13. There is moderate concentric left ventricular hypertrophy. 14. Overall left ventricular systolic function is low-normal with, an EF between 50 - 55 %. 15. The right ventricle is normal in size and function. 16. The left atrium is normal in size. 17. The right atrium is normal in size. 18. Aortic valve is trileaflet and is mildly thickened. BISQUE BRUSHER: Griselda Truong RDCS
[2017-03-19 11:57] LABS: Glucose,Whole Blood 117 mg/dL (75-99)
[2017-03-19] MEDS: LACTATED RINGERS 1,000 ML IV SCH (13:03)
--- NOTE | 2017-03-19 13:44 | P.PN ---
Progress Note - Text Progress Note Date: 03/19/17 DATE OF SERVICE: 03/19/2017 PRESENTING COMPLAINT: Fever HISTORY OF PRESENT ILLNESS: 82-year-old male who presented with 2 days of increasing fever nausea and lower abdominal pain difficulty in urination some chills. Urinalysis appeared infected patient appeared septic. Admitted for the same IV fluids antibiotics initiated. INTERVAL HISTORY: 03/19/2017: Patient lying in bed appears comfortable. Informed by nursing staff patient developed acute chest pain overnight roughly around 1:30 AM. States he had midsternal chest pain, sweating felt nauseated, no radiation, short of breath. sublingual nitro administered 1 dose with complete relief. EKG completed and cardiac enzymes negative.cardiology consulted echocardiogram ordered. No further episodes chest pain. Tolerating his diet ambulatory to and from the bathroom, last BM prior to admission. 03/18/2017: Patient lying in bed appears comfortable. States he feels better than he did upon admission. Remains afebrile, although has had some transient episodes of tachycardia. No complaints of abdominal pain, tolerating his diet eating between 50 and 75%, ambulatory to and from the bathroom without assistance, no difficulty with urination. REVIEW OF SYSTEMS: Done for constitutional ,cardiovascular, GI, pulmonary with relevant findings as above. CURRENT MEDICATIONS DuoNeb's, Lipitor, ceftriaxone thousand milligrams IV piggyback, Lovenox, Glucotrol, Solu-Cortef 50 mg IV every 8 hours, verapamil 240 mg by mouth daily. PHYSICAL EXAM VITAL SIGNS: Temperature 97.9, pulse 104, respiratory rate 18, blood pressure 107/60, oxygen saturation 99% on 2 L. GENERAL APPEARANCE: Lying in bed, not in distress. EYES: Pupils equal. Conjunctiva normal. NECK: JVD not raised. Mass not palpable. RESPIRATORY: Respiratory effort normal. Lungs diminished to auscultation. CARDIOVASCULAR: First and second sounds normal. No edema. ABDOMEN: Soft. Liver and spleen not palpable. No tenderness. No mass palpable. PSYCHIATRY: Alert and oriented x3. Mood and affect normal. INVESTIGATIONS: troponin 0.012,White blood cell count 14.2, BUN 28 creatinine 1.10, Accu-Cheks noted. Echocardiogram:sinus rhythm, mitral and tricuspid regurgitation, EF between 50 and 55%. ASSESSMENT: -acute chest pain unclear etiology, evidence not suggestive of an acute event. -Acute urinary tract infection with severe sepsis, present on admission, improving -Acute renal failure probably from sepsis and lactic acidosis, improving -Coronary artery disease, prior history of stent. -Gastroesophageal reflux disease. -Hyperlipidemia. -Essential hypertension. -Primary osteoporosis multiple joints bilateral. 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 -Essential tremors. -Chronic low back pain. -Hiatal hernia. -Chronic hypoxic respiratory failure uses 2 L of oxygen at home, from underlying chronic obstructive pulmonary disease. -Chronic obstructive pulmonary disease in an ex-smoker. -acute cystitis from urinary tract infection, improving PLAN: Continue stress dose of steroids, IV ceftriaxone and IV fluids to continue. cardiology added nitrates to patient's medication regimen will continue to monitor closely for any further episodes chest pain. Plan of care discussed with the patient the bedside he is in agreement. We will follow closely. OSS ARCHITECT statement: Patient was seen and examined by nurse practitioner Suzy Burton and all elements of the case discussed with attending Dr. Kelsey
--- NOTE | 2017-03-19 14:27 | P.PN ---
Subjective Progress Note Date: 03/19/17 Principal diagnosis: Urinary tract infection with acute sepsis. This is a very pleasant 82-year-old gentleman who follows with Dr. Morocho as his primary care physician. He has a history of atrial fibrillation, coronary artery disease with previous stent placement, diabetes mellitus, gastroesophageal reflux disease, hyperlipidemia, hypertension, osteoarthritis, diverticulitis with previous bowel perforation with resection and colostomy and subsequent reversal, recurrent urinary tract infections, history of left renal cancer status post nephrectomy. He also has history of oxygen-dependent steroid -dependent chronic obstructive pulmonary disease. He had recently been in our office approximately one month ago and treated for an upper respiratory infection. He had been improved however recently he had been having increasing weakness and some abdominal discomfort. He presented to the emergency room for the same. An abdominal x-ray revealed nonspecific abdomen. There is noted left lower lobe atelectasis or early infiltrate. Computed tomography scan of the abdomen revealed evidence of postoperative changes. There was splenomegaly. Findings compatible with chronic bladder outlet obstruction. No acute process. The patient is seen today in consultation on the selective care unit. He is currently awake and alert in no acute distress. His abdominal discomfort has subsided. Urinalysis reveals 2+ protein moderate blood and large leukocyte and many WBCs in clumps. Urine and blood cultures are pending. Initial white count 24.5, currently 17.0. Initial lactic acid 3.0, currently 1.5. He has been initiated on ceftriaxone. He is maintaining good O2 saturations in the mid 90s on room air. His been afebrile. Hemodynamically stable. The patient is seen again today 03/19/2017 in follow-up on the selective care unit. He is awake and alert in no acute distress. He's been up ambulating without significant dyspnea or weakness. His urine is positive for E. coli. He remains on ceftriaxone. White count is improved to 14.2. Afebrile. He denies any shortness of breath, cough or congestion. He is maintaining O2 saturations in the mid 90s on room air. His been hemodynamically stable. He is anxious to go home. Objective - Vital Signs Vital signs: Vital Signs Temp 98.0 F 03/19/17 11:23 Pulse 73 03/19/17 11:23 Resp 16 03/19/17 11:23 BP 145/69 03/19/17 11:23 Pulse Ox 97 03/19/17 11:23 Intake & Output 03/18/17 03/19/17 03/19/17 18:59 06:59 18:59 Intake Total 485 500 840 Output Total 1 300 Balance 485 499 540 Weight 75.6 kg Intake: Intake, IV Titration 500 600 Amount Lactated Ringers 1,000 ml 500 600 @ 50 mls/hr IV .Q20H [facility] Rx#:[id number] Oral 485 240 Output: Urine 1 300 Other: Voiding Method Urinal Urinal Urinal # Voids 1 1 - Exam GENERAL EXAM: Obese. Alert, comfortable in no apparent distress. HEAD: Normocephalic. EYES: Normal reaction of pupils, equal size. NOSE: Clear with pink turbinates. THROAT: No erythema or exudates. NECK: No masses, no JVD. CHEST: No chest wall deformity. LUNGS: Equal air entry with no crackles, wheeze, rhonchi or dullness. Diminished. CVS: S1 and S2 normal with no audible murmurs, regular rhythm. ABDOMEN: No hepatosplenomegaly, normal bowel sounds, no guarding or rigidity. SPINE: No scoliosis or deformity SKIN: No rashes CENTRAL NERVOUS SYSTEM: No focal deficits, tone is normal in all 4 extremities. Extremities: There is no significant peripheral edema. No clubbing, no cyanosis. Peripheral pulses are intact. - Labs CBC & Chem 7: 03/19/17 03:44 03/19/17 03:41 Labs: Abnormal Lab Results - Last 24 Hours (Table) 03/18/17 03/18/17 03/19/17 Range/Units 16:25 20:36 03:41 WBC (3.8-10.6) k/uL RBC (4.30-5.90) m/uL Hct (39.0-53.0) % Plt Count (150-450) k/uL Neutrophils # (1.3-7.7) k/uL Lymphocytes # (1.0-4.8) k/uL Chloride 111 H (98-107) mmol/L Carbon Dioxide 21 L (22-30) mmol/L BUN 28 H (9-20) mg/dL Glucose 120 H (74-99) mg/dL POC Glucose (mg/dL) 119 H 205 H (75-99) mg/dL Calcium 7.8 L (8.4-10.2) mg/dL 03/19/17 03/19/17 03/19/17 Range/Units 03:44 06:08 11:40 WBC 14.2 H (3.8-10.6) k/uL RBC 4.19 L (4.30-5.90) m/uL Hct 38.8 L (39.0-53.0) % Plt Count 113 L (150-450) k/uL Neutrophils # 13.1 H (1.3-7.7) k/uL Lymphocytes # 0.6 L (1.0-4.8) k/uL Chloride (98-107) mmol/L Carbon Dioxide (22-30) mmol/L BUN (9-20) mg/dL Glucose (74-99) mg/dL POC Glucose (mg/dL) 112 H 117 H (75-99) mg/dL Calcium (8.4-10.2) mg/dL Microbiology - Last 24 Hours (Table) 03/17/17 10:36 Blood Culture - Preliminary Blood No Growth after 48 hours 03/17/17 10:50 Urine Culture - Final Urine,Voided Escherichia coli Assessment and Plan Plan: Impression: #1 Urinary tract infection secondary to E. coli. The patient has had previous urinary tract infections with a Serratia E. coli, Proteus mirabilis and Klebsiella pneumoniae. #2 Acute sepsis secondary to above. #3 History of left renal cancer status post left nephrectomy. #4 Coronary artery disease with previous stent placements. #5 Chronic obstructive pulmonary disease, oxygen dependent, steroid dependent. Currently inactive and stable. #6 Atrial fibrillation, paroxysmal, history of. Currently in sinus rhythm. #7 Hypertension. #8 Hyperlipidemia. 9 Gastroesophageal reflux disease. #10 Diabetes mellitus. #11 History of bowel perforation status post colostomy with subsequent reversal. #12 Remote history of chronic tobacco dependence. #13 History of lung biopsy, negative for malignancy. Plan: The patient was seen and evaluated by Dr. Guzman. He has no pulmonary complaints currently. He is maintained on ceftriaxone for his UTI. He is currently on Lovenox for DVT prophylaxis. We will continue to follow and make further recommendations based on his clinical status. I performed a history and physical on the patient. His lungs are clear, diminished. I discussed the findings along with the assessment and plan of care with my nurse practitioner, Natalie Oliveira. I agree with the above note.
[2017-03-19 17:24] LABS: Glucose,Whole Blood 126 mg/dL (75-99)
--- NOTE | 2017-03-19 18:05 | PN ---
PROGRESS NOTE DATE OF SERVICE: 03/19/2017. ATTENDING NOTE: This patient seen examined by me. I discussed with my nurse practitioner, Ms. Burton. Patient around 1:30 this morning developed left-sided chest pressure going down the left arm. The patient was dizzy, did break out in a sweat. Symptoms lasted for a good 2 hours. Cardiology was consulted. These symptoms are much improved. EXAMINATION: Afebrile, pulse 73, respirations 16, blood pressure 145/69. LUNGS: Clear. CARDIOVASCULAR: 1st and 2nd sounds normal. White count 14.2. Urine culture growing E coli. Blood cultures negative. ASSESSMENT: 1. Acute urinary tract infection with severe sepsis, present on admission from Escherichia coli. 2. Acute renal failure, improving. 3. Left anterior chest wall pain with a cardiac-sounding presentation. Need further cardiac workup. Cardiology was consulted. Two-dimensional echocardiogram was done, showed concentric left ventricular hypertrophy, ejection fraction 50% to 55%. No wall motion abnormality. Troponin x2 is negative. Urinalysis was negative. Troponin negative. Solu-Cortef will be now discontinued. Will drop it down to 20 of prednisone. Also, the patient may need a stress test. Will switch the patient's IV ceftriaxone to Cipro. The patient needs another 7 days of p.o. antibiotics. Will also discontinue the IV hydrocortisone, switch to p.o. prednisone and taper it down to his home dose of prednisone. Care was discussed with the patient. BRIAN / RUFINAN: [id number] /
[2017-03-19] MEDS: LATANOPROST 0.005% OPHTH DROPS 2.5 ML BTL BOTH EYES SCH (19:54)
[2017-03-19] MEDS: CIPROFLOXACIN HCL 500 MG TAB PO SCH (19:54)
[2017-03-19 20:05] LABS: Glucose,Whole Blood 134 mg/dL (75-99)
[2017-03-19 20:56] LABS: Glucose,Whole Blood 95 mg/dL (75-99)
[2017-03-20 06:06] LABS: Glucose,Whole Blood 81 mg/dL (75-99)
[2017-03-20] MEDS: INSULIN LISPRO (humaLOG) 300 UNIT/3 ML VIAL SQ SCH ×2 (06:08→12:10)
[2017-03-20] MEDS: VIT A,C & E-LUTEIN-MINERALS 1 EACH TAB PO SCH (06:43)
[2017-03-20] MEDS: glipiZIDE 5 MG TAB PO SCH (06:43)
[2017-03-20 06:53] LABS: Anion Gap 5 mmol/L; Blood Urea Nitrogen 25 mg/dL (9-20); Calcium 8.2 mg/dL (8.4-10.2); Carbon Dioxide 23 mmol/L (22-30); Chloride 113 mmol/L (98-107); Glucose 65 mg/dL (74-99); Non-African American GFR(MDRD) 58 (>60 ml/min/1.73 sqM); Sodium 141 mmol/L (137-145)
[2017-03-20] MEDS: ATORVASTATIN 20 MG TAB PO SCH (07:51)
[2017-03-20] MEDS: ISOSORBIDE MONONITRATE ER 30 MG TAB.ER.24H PO SCH (07:51)
[2017-03-20] MEDS: ENOXAPARIN 40 MG/0.4 ML SYRINGE SQ SCH (07:51)
[2017-03-20] MEDS: VERAPAMIL SR 240 MG TABLET.ER PO SCH (07:51)
[2017-03-20] MEDS: CIPROFLOXACIN HCL 500 MG TAB PO SCH (07:51)
[2017-03-20] MEDS ORDERED: predniSONE 20 MG TAB PO SCH (09:00)
[2017-03-20] MEDS: ASPIRIN 81 MG PO SCH (09:16)
--- NOTE | 2017-03-20 10:41 | P.PN ---
Subjective Progress Note Date: 03/20/17 Principal diagnosis: Urinary tract infection with acute sepsis. This is a very pleasant 82-year-old gentleman who follows with Dr. Morocho as his primary care physician. He has a history of atrial fibrillation, coronary artery disease with previous stent placement, diabetes mellitus, gastroesophageal reflux disease, hyperlipidemia, hypertension, osteoarthritis, diverticulitis with previous bowel perforation with resection and colostomy and subsequent reversal, recurrent urinary tract infections, history of left renal cancer status post nephrectomy. He also has history of oxygen-dependent steroid -dependent chronic obstructive pulmonary disease. He had recently been in our office approximately one month ago and treated for an upper respiratory infection. He had been improved however recently he had been having increasing weakness and some abdominal discomfort. He presented to the emergency room for the same. An abdominal x-ray revealed nonspecific abdomen. There is noted left lower lobe atelectasis or early infiltrate. Computed tomography scan of the abdomen revealed evidence of postoperative changes. There was splenomegaly. Findings compatible with chronic bladder outlet obstruction. No acute process. The patient is seen today in consultation on the selective care unit. He is currently awake and alert in no acute distress. His abdominal discomfort has subsided. Urinalysis reveals 2+ protein moderate blood and large leukocyte and many WBCs in clumps. Urine and blood cultures are pending. Initial white count 24.5, currently 17.0. Initial lactic acid 3.0, currently 1.5. He has been initiated on ceftriaxone. He is maintaining good O2 saturations in the mid 90s on room air. His been afebrile. Hemodynamically stable. The patient is seen again today 03/19/2017 in follow-up on the selective care unit. He is awake and alert in no acute distress. He's been up ambulating without significant dyspnea or weakness. His urine is positive for E. coli. He remains on ceftriaxone. White count is improved to 14.2. Afebrile. He denies any shortness of breath, cough or congestion. He is maintaining O2 saturations in the mid 90s on room air. His been hemodynamically stable. He is anxious to go home. The patient is seen today 03/20/2017 in follow-up on the selective care unit. He is awake and alert in no acute distress. He is resting quite comfortably in bed. He denies any worsening shortness of breath, cough or congestion. Maintaining good O2 saturations in the mid 90s on room air. He's been afebrile. He denies any urinary complaints. He did have complaints of chest pain. Troponins were negative. Echocardiogram was performed. Normal left ventricular systolic function. No further cardiac workup is planned. Objective - Vital Signs Vital signs: Vital Signs Temp 98.2 F 03/20/17 08:00 Pulse 85 03/20/17 08:00 Resp 20 03/20/17 08:00 BP 121/65 03/20/17 08:00 Pulse Ox 94 L 03/20/17 08:00 Intake & Output 03/19/17 03/20/17 03/20/17 18:59 06:59 18:59 Intake Total 1120 300 240 Output Total 700 Balance 420 300 240 Weight 75.6 kg Intake: Intake, IV Titration 600 300 Amount Lactated Ringers 1,000 ml 600 300 @ 50 mls/hr IV .Q20H [facility] Rx#:[id number] Oral 520 240 Output: Urine 700 Other: Voiding Method Urinal Toilet Toilet Urinal Urinal # Voids 1 1 - Exam GENERAL EXAM: Obese. Alert, comfortable in no apparent distress. HEAD: Normocephalic. EYES: Normal reaction of pupils, equal size. NOSE: Clear with pink turbinates. THROAT: No erythema or exudates. NECK: No masses, no JVD. CHEST: No chest wall deformity. LUNGS: Equal air entry with no crackles, wheeze, rhonchi or dullness. Diminished. CVS: S1 and S2 normal with no audible murmurs, regular rhythm. ABDOMEN: No hepatosplenomegaly, normal bowel sounds, no guarding or rigidity. SPINE: No scoliosis or deformity SKIN: No rashes CENTRAL NERVOUS SYSTEM: No focal deficits, tone is normal in all 4 extremities. Extremities: There is no significant peripheral edema. No clubbing, no cyanosis. Peripheral pulses are intact. - Labs CBC & Chem 7: 03/19/17 03:44 03/20/17 05:46 Labs: Abnormal Lab Results - Last 24 Hours (Table) 03/19/17 03/19/17 03/19/17 Range/Units 11:40 16:41 19:53 Chloride (98-107) mmol/L BUN (9-20) mg/dL Glucose (74-99) mg/dL POC Glucose (mg/dL) 117 H 126 H 134 H (75-99) mg/dL Calcium (8.4-10.2) mg/dL 03/20/17 Range/Units 05:46 Chloride 113 H (98-107) mmol/L BUN 25 H (9-20) mg/dL Glucose 65 L (74-99) mg/dL POC Glucose (mg/dL) (75-99) mg/dL Calcium 8.2 L (8.4-10.2) mg/dL Microbiology - Last 24 Hours (Table) 03/17/17 10:36 Blood Culture - Preliminary Blood No Growth after 48 hours 03/17/17 10:50 Urine Culture - Final Urine,Voided Escherichia coli Assessment and Plan Plan: Impression: #1 Urinary tract infection secondary to E. coli. The patient has had previous urinary tract infections with a Serratia E. coli, Proteus mirabilis and Klebsiella pneumoniae. #2 Acute sepsis secondary to above. #3 History of left renal cancer status post left nephrectomy. #4 Coronary artery disease with previous stent placements. #5 Chronic obstructive pulmonary disease, oxygen dependent, steroid dependent. Currently inactive and stable. #6 Atrial fibrillation, paroxysmal, history of. Currently in sinus rhythm. #7 Hypertension. #8 Hyperlipidemia. 9 Gastroesophageal reflux disease. #10 Diabetes mellitus. #11 History of bowel perforation status post colostomy with subsequent reversal. #12 Remote history of chronic tobacco dependence. #13 History of lung biopsy, negative for malignancy. Plan: The patient was seen and evaluated by Dr. Guzman. He has no pulmonary complaints currently. He is maintained on ciprofloxacin for his UTI. He is currently on Lovenox for DVT prophylaxis. He is cleared for discharge from pulmonary standpoint. He'll follow-up in our office with Dr. Morocho in 1-2 weeks' time. He and his are both encouraged to call sooner with any recurrence of symptoms or other questions or concerns. I performed a history and physical on the patient. His lungs are clear, diminished. Maintaining good O2 saturations in the 90s on room air. I discussed the findings along with the assessment and plan of care with my nurse practitioner, Natalie Oliveira. I agree with the above note.
[2017-03-20 11:25] VITALS: BP 124/65; PULSE 100; RESP 18; TEMP 98
[2017-03-20 11:48] LABS: Glucose,Whole Blood 172 mg/dL (75-99)
--- NOTE | 2017-03-20 13:06 | P.PN ---
Subjective Progress Note Date: 03/20/17 Principal diagnosis: sepsis and UTI This is a pleasant 82-year-old gentleman with a history of coronary artery disease, hypertension, hyperlipidemia, diabetes mellitus, bronchiectasis. Presented to the emergency department with nausea and vomiting, chest tightness , fever and hematuria. He was diagnosed with sepsis and urinary tract infection. Cardiology was consulted due to symptoms of chest discomfort. Patient is usually on home oxygen but apparently was not getting his oxygen after admission and developed some diaphoresis and pallor along with some chest discomfort. This is since resolved. He underwent echocardiogram that showed an ejection fraction between 50-55%. His last stress test from 2014 showed no evidence of inducible ischemia. Upon examination, patient is resting comfortably in bed. Further complaints of chest discomfort. His cardiac enzymes have been negative. Objective - Vital Signs Vital signs: Vital Signs Temp 98.0 F 03/20/17 11:25 Pulse 100 03/20/17 11:26 Resp 18 03/20/17 11:26 BP 124/65 03/20/17 11:25 Pulse Ox 95 03/20/17 11:25 Intake & Output 03/19/17 03/20/17 03/20/17 18:59 06:59 18:59 Intake Total 1120 300 340 Output Total 700 200 Balance 420 300 140 Weight 75.6 kg Intake: Intake, IV Titration 600 300 Amount Lactated Ringers 1,000 ml 600 300 @ 50 mls/hr IV .Q20H STALIN Rx#:[id number] Oral 520 340 Output: Urine 700 200 Other: Voiding Method Urinal Toilet Toilet Urinal Urinal # Voids 1 1 1 - Exam PHYSICAL EXAMINATION: HEENT: Head is atraumatic, normocephalic. Pupils equal, round. Neck is supple. There is no elevated jugular venous pressure. HEART EXAMINATION: Heart sounds regular, S1 and S2 with a systolic murmur. CHEST EXAMINATION: Lungs reveal dry crackles bilaterally. No chest wall tenderness is noted on palpation or with deep breathing. ABDOMEN: Soft, nontender. Bowel sounds are heard. No organomegaly noted. EXTREMITIES: 2+ peripheral pulses with no evidence of peripheral edema and no calf tenderness noted. NEUROLOGIC patient is awake, alert and oriented x3. . - Labs CBC & Chem 7: 03/19/17 03:44 03/20/17 05:46 Labs: Abnormal Lab Results - Last 24 Hours (Table) 03/19/17 03/19/17 03/20/17 Range/Units 16:41 19:53 05:46 Chloride 113 H (98-107) mmol/L BUN 25 H (9-20) mg/dL Glucose 65 L (74-99) mg/dL POC Glucose (mg/dL) 126 H 134 H (75-99) mg/dL Calcium 8.2 L (8.4-10.2) mg/dL 03/20/17 Range/Units 11:30 Chloride (98-107) mmol/L BUN (9-20) mg/dL Glucose (74-99) mg/dL POC Glucose (mg/dL) 172 H (75-99) mg/dL Calcium (8.4-10.2) mg/dL Microbiology - Last 24 Hours (Table) 03/17/17 10:36 Blood Culture - Preliminary Blood No Growth after 72 hours 03/17/17 10:50 Urine Culture - Final Urine,Voided Escherichia coli Assessment and Plan Plan: Assessment and plan #1 chest discomfort, no clear evidence to suggest acute ischemic event 2 history of coronary artery disease most recent stress test in 2014 was normal #3 urosepsis, improving #4 hypertension #5 hyperlipidemia #6 diabetes mellitus [employer] perspective, patient is stable for discharge home. He'll follow- up with Dr. Mckenna in the office in about 2 weeks. OUTREACH LIBRARIAN note has been reviewed, I agree with a documented findings and plan of care. Patient was seen and examined.
--- NOTE | 2017-03-20 15:51 | P.DS ---
Providers Date of admission: 03/17/17 12:12 Expected date of discharge: 03/20/17 Attending physician: Nba Kelsey Consults: 03/17/17 12:12 Consult Physician Stat Consulting Provider: Mary Morocho Consult Reason/Comments: known Do you want consulting provider notified?: Yes 03/17/17 20:23 Consult Physician Routine Consulting Provider: Juhi Keith Consult Reason/Comments: abd pain Do you want consulting provider notified?: Yes 03/19/17 03:35 Consult Physician Routine Consulting Provider: Prema Mckenna Consult Reason/Comments: Chest pain Do you want consulting provider notified?: Yes, Notify in am Primary care physician: [facility] Hospital Course: FINAL DIAGNOSES: -Acute urinary tract infection with severe sepsis, cultures positive for E. coli present on admission -Left anterior chest wall chest pain possible angina -Acute renal failure probably from sepsis and lactic acidosis -Coronary artery disease, prior history of stent. -Gastroesophageal reflux disease. -Hyperlipidemia. -Essential hypertension. -Primary osteoarthritis multiple joints bilateral. 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 -Essential tremors. -Chronic low back pain. -Hiatal hernia. -Chronic hypoxic respiratory failure uses 2 L of oxygen at home, from underlying chronic obstructive pulmonary disease. -Chronic obstructive pulmonary disease in an ex-smoker. -acute cystitis from urinary tract infection, improving HOSPTIAL COURSE: 82-year-old male who presented with 2 days of increasing fever nausea and lower abdominal pain difficulty in urination and some chills, urinalysis appeared infected patient appeared septic, and was admitted for the same. Home medications added, IV fluids started, consults to pulmonology, Gen. surgery, cardiology initiated. General surgery consulted for the abdominal pain elevated lactic acid. Patient was found to have a UTI on admission and there was No evidence of an acute surgical abdomen and they signed off. Cardiology evaluated the patient for complaint of acute chest discomfort during the course of his stay. EKG, serial troponins performed and these revealed no evidence of an acute ischemic event. Nitrates added to his regimen. Pulmonology saw the patient and patient is being treated for his sepsis secondary to urinary tract infection with no active pulmonary complaints, therefore no adjustments to his medications were made. Patient is tolerating his diet, ambulatory in the room and ramirez ways, free from fever nausea and abdominal pain, no painful urination condition has improved and patient is therefore stable for discharge. First and second sounds noted no edema. PHYSICAL EXAM: CARDIOVASCULAR: First and second sound noted no edema RESPIRATORY: Respiratory effort normal lung sounds diminished bilaterally. GI: Abdomen soft nontender liver and spleen not palpable PSYCHIATRY: Alert and oriented 3 mood and affect normal. Patient was seen and examined by nurse practitioner Suzy Burton in all elements of the case discussed with attending Dr. Kelsey DISPOSITION: Home to the care of his family Patient Condition at Discharge: Stable Plan - Discharge Summary New Discharge Prescriptions: New Aspirin 81 mg PO DAILY Ciprofloxacin HCl [Cipro] 500 mg PO BID #14 tab Isosorbide Mononitrate ER [Imdur] 30 mg PO DAILY #30 tab Ipratropium-Albuterol Nebulize [Duoneb 0.5 mg-3 mg/3 ml Soln] 3 ml INHALATION RT-QID PRN neb PRN Reason: Shortness Of Breath Or Wheezing Continue Atorvastatin [Lipitor] 20 mg PO QAM glipiZIDE [Glipizide Xl] 10 mg PO DAILY Latanoprost 1 drop BOTH EYES HS predniSONE [Prednisone] 5 mg PO DAILY Verapamil Sr [Isoptin Sr] 240 mg PO DAILY Lisinopril-Hctz 20-25 mg [Zestoretic 20-25] 0.5 tab PO DAILY Vit C/E/Zn/Coppr/Lutein/Zeaxan [Preservision Areds 2 Softgel] 1 cap PO BID Discharge Medication List Atorvastatin [Lipitor] 20 mg PO QAM 03/19/15 [History] Latanoprost 1 drop BOTH EYES HS 03/19/15 [History] Lisinopril-Hctz 20-25 mg [Zestoretic 20-25] 0.5 tab PO DAILY 03/19/15 [History] Verapamil Sr [Isoptin Sr] 240 mg PO DAILY 03/19/15 [History] glipiZIDE [Glipizide Xl] 10 mg PO DAILY 03/19/15 [History] predniSONE [Prednisone] 5 mg PO DAILY 03/19/15 [History] Vit C/E/Zn/Coppr/Lutein/Zeaxan [Preservision Areds 2 Softgel] 1 cap PO BID 03/17 [History] Aspirin 81 mg PO DAILY 03/20/17 [Rx] Ciprofloxacin HCl [Cipro] 500 mg PO BID #14 tab 03/20/17 [Rx] Ipratropium-Albuterol Nebulize [Duoneb 0.5 mg-3 mg/3 ml Soln] 3 ml INHALATION RT -QID PRN neb 03/20/17 [Rx] Isosorbide Mononitrate ER [Imdur] 30 mg PO DAILY #30 tab 03/20/17 [Rx] Follow up Appointment(s)/Referral(s): Mary Morocho MD [Primary Care Provider] - 03/26/17 10:00 am Prema Mckenna MD [STAFF PHYSICIAN] - 04/03/17 10:15 am Ambulatory/Diagnostic Orders: Basic Metabolic Panel [LAB.AMB] Location: Determined By Patient Complete Blood Count w/diff [LAB.AMB] Location: Determined By Patient Patient Instructions/Handouts: Urinary Tract Infection in Men (DC), Sepsis (GEN ) Activity/Diet/Wound Care/Special Instructions: prednisone 20 mg po for 2 days then 10 mg po for 2 days then resume home dose Discharge Disposition: HOME SELF-CARE
--- NOTE | 2017-03-20 18:41 | DS ---
DISCHARGE SUMMARY DATE OF SERVICE: 03/20/2017 ATTENDING NOTE: This patient was seen and examined by me. This patient was admitted with acute UTI with sepsis. Doing rather well. Urine culture did grow E coli. Afebrile. Doing well. Cardiology did add nitrates. Patient has had no further chest pain. Care was discussed in detail with the patient. PHYSICAL EXAMINATION: LUNGS: Decreased breath sounds. CARDIOVASCULAR: First and second sounds normal. Patient to follow up with his primary and Cardiology as an outpatient. Quick taper of steroids. Discharge planning more than 35 minutes. MMODL / IJN: [id number] /
== END 2017-03-20 12:30 | disposition home or self-care (01) | DRG 872 ==
LOC: EC 10:21 → 6SEL 12:12
PROVIDERS: ADMIT Hospitalist; ATTEND Hospitalist
DX: A41.9 Sepsis, unspecified organism (principal); N17.9 Acute kidney failure, unspecified; J96.11 Chronic respiratory failure with hypoxia; N30.01 Acute cystitis with hematuria; I11.9 Hypertensive heart disease without heart failure; I48.0 Paroxysmal atrial fibrillation; J44.9 Chronic obstructive pulmonary disease, unspecified; Z99.81 Dependence on supplemental oxygen; E11.9 Type 2 diabetes mellitus without complications; B96.20 Unspecified Escherichia coli [E. coli] as the cause of diseases classified elsewhere; R65.20 Severe sepsis without septic shock; G25.0 Essential tremor; E78.5 Hyperlipidemia, unspecified; G89.29 Other chronic pain; H35.30 Unspecified macular degeneration; H40.9 Unspecified glaucoma; I25.119 Atherosclerotic heart disease of native coronary artery with unspecified angina pectoris; I25.2 Old myocardial infarction; K21.9 Gastro-esophageal reflux disease without esophagitis; K44.9 Diaphragmatic hernia without obstruction or gangrene; M15.9 Polyosteoarthritis, unspecified; N32.0 Bladder-neck obstruction; N40.0 Benign prostatic hyperplasia without lower urinary tract symptoms; M54.5 Low back pain; K57.90 Diverticulosis of intestine, part unspecified, without perforation or abscess without bleeding; E66.9 Obesity, unspecified; Z79.52 Long term (current) use of systemic steroids; Z79.84 Long term (current) use of oral hypoglycemic drugs; Z79.899 Other long term (current) drug therapy; Z85.528 Personal history of other malignant neoplasm of kidney; Z85.828 Personal history of other malignant neoplasm of skin; Z87.440 Personal history of urinary (tract) infections; Z87.891 Personal history of nicotine dependence; Z90.5 Acquired absence of kidney; Z95.5 Presence of coronary angioplasty implant and graft
CPT/HCPCS: 36415; 74022; 74177; 80048; 80053; 81001; 82150; 82550; 82553; 83036; 83605; 83690; 84484; 85025; 85610; 85730; 87040; 87077; 87086; 87186; 93005; 93306; 94640; 96361; 96365; 96375; 99291

== ENCOUNTER 2018-08-30 14:21 | Observation (INO) | payer MEDICARE, BC ==
[2018-08-30] MEDS ORDERED: ASPIRIN 81 MG PO STA (14:44)
[2018-08-30] MEDS ORDERED: NITROGLYCERIN OINT 1 INCH/GM PACKET TOPICAL STA (14:44)
--- NOTE | 2018-08-30 14:48 | ED ---
General Adult HPI - General Chief complaint: Chest Pain Stated complaint: Chest discomfort, weakness Time Seen by Provider: 08/30/18 14:25 Source: patient, RN notes reviewed Mode of arrival: ambulatory Limitations: no limitations - History of Present Illness Initial comments: This is an 83-year-old male who presents emergency Department with a past medi alireza history significant for coronary artery stents high blood pressure and high cholesterol. Patient comes in with an hour and a half history of chest pain that radiated to the back per patient states she was also short of breath with the pain. Patient states it all started when he walked outside to look for his garbage can cover and the chest pain began. Patient denies any palpitations. Patient denies any nausea. Patient denies any diaphoretic episodes. Patient denies any abdominal pain patient denies nausea vomiting diarrhea. Patient denies headache patient denies numbness weakness. Patient denies lightheadedness dizziness or near syncopal episode. Patient denies any swelling to the legs or calf tenderness. Patient denies any recent history of fever chills or cough. Patient states chest pain is still there but much improved compared to when he came in. - Related Data Home Medications Medication Instructions Recorded Confirmed Atorvastatin [Lipitor] 20 mg PO QAM 03/19/15 08/30/18 Latanoprost 1 drop BOTH EYES HS 03/19/15 08/30/18 Verapamil Sr [Isoptin Sr] 240 mg PO DAILY 03/19/15 08/30/18 glipiZIDE [Glipizide Xl] 10 mg PO DAILY 03/19/15 08/30/18 predniSONE [Prednisone] 5 mg PO DAILY 03/19/15 08/30/18 Vit C/E/Zn/Coppr/Lutein/Zeaxan 1 cap PO BID 03/17/17 08/30/18 [Preservision Areds 2 Softgel] Lisinopril [Zestril] 5 mg PO DAILY 08/30/18 08/30/18 Previous Rx's Medication Instructions Recorded Aspirin 81 mg PO DAILY 03/20/17 Ipratropium-Albuterol Nebulize 3 ml INHALATION RT-QID PRN neb 03/20/17 [Duoneb 0.5 mg-3 mg/3 ml Soln] Allergies Allergy/AdvReac Type Severity Reaction Status Date / Time No Known Allergies Allergy Verified 08/30/18 15:41 Review of Systems ROS Statement: Those systems with pertinent positive or pertinent negative responses have been documented in the HPI. ROS Other: All systems not noted in ROS Statement are negative. Past Medical History Past Medical History: Atrial Fibrillation, Coronary Artery Disease (CAD), Cancer, COPD, Eye Disorder, GERD/Reflux, Hyperlipidemia, Hypertension, Myocardial Infarction (MS), Osteoarthritis (OA), Pneumonia, Renal Disease, Respiratory Disorder Additional Past Medical History / Comment(s): chronic and recurrent urinary tract infections, UTI with sepsis, diverticulitis, previous history of bowel perforation had a colostomy since reversed, BPH-prostatectomy, renal cancer (lt), skin cancer with removal, tremors(non parkinsons), bilateral glaucoma, R eye macular degeneration, chronic back pain, bronchits, uses 02 2 liters n/c prn, hiatal hernia. Last Myocardial Infarction Date:: 1999 History of Any Multi-Drug Resistant Organisms: None Reported Past Surgical History: Appendectomy, Bowel Resection, Heart Catheterization With Stent, Hernia Repair, Prostate Surgery Additional Past Surgical History / Comment(s): nephrectomy(lt), lung bx-neg, prostatectomy, 2 cardiac stents, basal cell skin ca removed, cheryl cataracts, L eye steel shard removed, bowel sx 8 inches removed had colostomy since reversed- past med hx stated still has metal clip left in place, L inguinal hernia repair, skin grafts rt arm-pt fell into hot tar on construction site. Past Anesthesia/Blood Transfusion Reactions: No Reported Reaction Date of Last Stent Placement:: 1999 Past Psychological History: No Psychological Hx Reported Smoking Status: Former smoker Past Alcohol Use History: Occasional Past Drug Use History: None Reported - Past Family History Father Family Medical History: Osteoarthritis (OA), Pneumonia Additional Family Medical History / Comment(s): from pne after hip sx Mother Family Medical History: Cancer Additional Family Medical History / Comment(s): throat cancer General Exam - General Exam Comments Initial Comments: GENERAL: Patient is well-developed and well-nourished. Patient is nontoxic and well- hydrated and is in mild distress. ENT: Neck is soft and supple. No significant lymphadenopathy is noted. Oropharynx is clear. Moist mucous membranes. Neck has full range of motion without eliciting any pain. EYES: The sclera were anicteric and conjunctiva were pink and moist. Extraocular movements were intact and pupils were equal round and reactive to light. Eye lids were unremarkable. PULMONARY: Unlabored respirations. Good breath sounds bilaterally. No audible rales rhonchi or wheezing was noted. CARDIOVASCULAR: There is a regular rate and rhythm without any murmurs gallops or rubs. ABDOMEN: Soft and nontender with normal bowel sounds. No palpable organomegaly was noted. There is no palpable pulsatile mass. SKIN: Skin is clear with no lesions or rashes and otherwise unremarkable. NEUROLOGIC: Patient is alert and oriented x3. Cranial nerves II through XII are grossly intact. Motor and sensory are also intact. Normal speech, volume and content. Symmetrical smile. MUSCULOSKELETAL: Normal extremities with adequate strength and full range of motion. No lower extremity swelling or edema. No calf tenderness. LYMPHATICS: No significant lymphadenopathy is noted PSYCHIATRIC: Normal psychiatric evaluation. Limitations: no limitations Course Vital Signs 08/30/18 08/30/18 08/30/18 14:26 14:50 15:46 Temperature 98.7 F 98.5 F Pulse Rate 95 88 90 Respiratory 18 24 18 Rate Blood Pressure 180/83 160/88 147/88 O2 Sat by Pulse 96 96 97 Oximetry Medical Decision Making - Medical Decision Making EKG shows sinus rhythm with occasional PACs at 93 bpm SC interval 214 QRS is 76 QT interval 358 QTC is 445. Patient's EKG shows no ST segment elevation or depression or T wave abnormalities are noted. I started the patient on heparin because of the unstable angina picture. Patient got nitroglycerin and aspirin in the emergency department and felt considerably better patient denied any chest pain on my reevaluation of the patient. Chest x-ray showed no acute abnormality. I spoke with Dr. Claudio he agreed to admit the patient admitted the patient I wrote admitting orders. I consult to cardiology continued heparin and aspirin and Nitropaste on the floor. - Lab Data Result diagrams: 08/30/18 14:43 08/30/18 14:43 Lab Results 08/30/18 08/30/18 08/30/18 Range/Units 14:43 14:43 14:43 WBC 9.1 (3.8-10.6) k/uL RBC 5.38 (4.30-5.90) m/uL Hgb 11.0 L (13.0-17.5) gm/dL Hct 37.4 L (39.0-53.0) % MCV 69.5 L (80.0-100.0) fL MCH 20.5 L (25.0-35.0) pg MCHC 29.5 L (31.0-37.0) g/dL RDW 16.8 H (11.5-15.5) % Plt Count 239 (150-450) k/uL Neutrophils % 67 % Lymphocytes % 20 % Monocytes % 6 % Eosinophils % 3 % Basophils % 1 % Neutrophils # 6.1 (1.3-7.7) k/uL Lymphocytes # 1.9 (1.0-4.8) k/uL Monocytes # 0.6 (0-1.0) k/uL Eosinophils # 0.3 (0-0.7) k/uL Basophils # 0.1 (0-0.2) k/uL Hypochromasia Marked Anisocytosis Slight Microcytosis Marked PT 10.4 (9.0-12.0) sec INR 1.0 (<1.2) APTT 27.7 (22.0-30.0) sec Sodium 143 (137-145) mmol/L Potassium 4.2 (3.5-5.1) mmol/L Chloride 110 H (98-107) mmol/L Carbon Dioxide 25 (22-30) mmol/L Anion Gap 8 mmol/L BUN 22 H (9-20) mg/dL Creatinine 1.03 (0.66-1.25) mg/dL Est GFR (CKD-EPI)AfAm 79 (>60 ml/min/1.73 sqM) Est GFR (CKD-EPI)NonAf 68 (>60 ml/min/1.73 sqM) Glucose 83 (74-99) mg/dL Calcium 9.1 (8.4-10.2) mg/dL Magnesium 2.0 (1.6-2.3) mg/dL Total Bilirubin 0.5 (0.2-1.3) mg/dL AST 17 (17-59) U/L ALT 25 (21-72) U/L Alkaline Phosphatase 86 (38-126) U/L Troponin I (0.000-0.034) ng/mL Total Protein 6.4 (6.3-8.2) g/dL Albumin 4.0 (3.5-5.0) g/dL 08/30/18 Range/Units 14:43 WBC (3.8-10.6) k/uL RBC (4.30-5.90) m/uL Hgb (13.0-17.5) gm/dL Hct (39.0-53.0) % MCV (80.0-100.0) fL MCH (25.0-35.0) pg MCHC (31.0-37.0) g/dL RDW (11.5-15.5) % Plt Count (150-450) k/uL Neutrophils % % Lymphocytes % % Monocytes % % Eosinophils % % Basophils % % Neutrophils # (1.3-7.7) k/uL Lymphocytes # (1.0-4.8) k/uL Monocytes # (0-1.0) k/uL Eosinophils # (0-0.7) k/uL Basophils # (0-0.2) k/uL Hypochromasia Anisocytosis Microcytosis PT (9.0-12.0) sec INR (<1.2) APTT (22.0-30.0) sec Sodium (137-145) mmol/L Potassium (3.5-5.1) mmol/L Chloride (98-107) mmol/L Carbon Dioxide (22-30) mmol/L Anion Gap mmol/L BUN (9-20) mg/dL Creatinine (0.66-1.25) mg/dL Est GFR (CKD-EPI)AfAm (>60 ml/min/1.73 sqM) Est GFR (CKD-EPI)NonAf (>60 ml/min/1.73 sqM) Glucose (74-99) mg/dL Calcium (8.4-10.2) mg/dL Magnesium (1.6-2.3) mg/dL Total Bilirubin (0.2-1.3) mg/dL AST (17-59) U/L ALT (21-72) U/L Alkaline Phosphatase (38-126) U/L Troponin I <0.012 (0.000-0.034) ng/mL Total Protein (6.3-8.2) g/dL Albumin (3.5-5.0) g/dL Critical Care Time Critical Care Time: Yes Total Critical Care Time: 35 Disposition Clinical Impression: Unstable angina pectoris Disposition: ADMITTED IP TO THIS HOSP Referrals: Mary Morocho MD [Primary Care Provider] - 1-2 days Time of Disposition: 16:12
[2018-08-30 14:58] LABS: Anisocytosis Slight; Basophils # (A) 0.1 k/uL (0-0.2); Basophils % (A) 1 %; Eosinophils # (A) 0.3 k/uL (0-0.7); Eosinophils % (A) 3 %; HCT 37.4 % (39.0-53.0); Hypochromasia Marked; Lymphocytes # (A) 1.9 k/uL (1.0-4.8); Lymphocytes % (A) 20 %; MCH 20.5 pg (25.0-35.0); MCHC 29.5 g/dL (31.0-37.0); MCV 69.5 fL (80.0-100.0); Mean Platelet Volume 7.2; Microcytosis Marked; Monocytes # (A) 0.6 k/uL (0-1.0); Monocytes % (A) 6 %; Neutrophils # (A) 6.1 k/uL (1.3-7.7); Neutrophils % (A) 67 %; Platelet Count 239 k/uL (150-450); RBC 5.38 m/uL (4.30-5.90); RDW 16.8 % (11.5-15.5); WBC 9.1 k/uL (3.8-10.6)
[2018-08-30 15:07] LABS: Calcium 9.1 mg/dL (8.4-10.2); Potassium 4.2 mmol/L (3.5-5.1); Total Bilirubin 0.5 mg/dL (0.2-1.3); Total Protein 6.4 g/dL (6.3-8.2)
[2018-08-30 15:13] LABS: Partial Thromboplastin Time 27.7 sec (22.0-30.0); Prothrombin Time 10.4 sec (9.0-12.0)
--- NOTE | 2018-08-30 15:21 | XR ---
EXAMINATION TYPE: XR chest 2V DATE OF EXAM: 08/30/2018 COMPARISON: 04/19/2016 and 03/17/2017 HISTORY: 83-year-old male with chest pain TECHNIQUE: AP and lateral views FINDINGS: Heart borderline enlarged. Diffuse interstitial prominence appears in part chronic. Patchy left basil ar opacity. No sizable pleural effusion. IMPRESSION: 1. Borderline heart size and interstitial changes. Correlate to exclude mild pulmonary vascular conge stion. 2. Additional focal patchy left basilar atelectasis or infiltrate.
[2018-08-30] MEDS ORDERED: HEPARIN SODIUM,PORCINE 5,000 UNIT/ML 1 ML VIAL IV ONE (16:06)
[2018-08-30] MEDS ORDERED: NITROGLYCERIN SL TABS 0.4 MG TAB SUBLINGUAL PRN (16:13)
[2018-08-30] MEDS ORDERED: HEPARIN SOD,PORK IN 0.45% NACL 25,000 UNIT in 0.45% NACL 1 250ML.BAG IV SCH (16:15)
[2018-08-30] MEDS ORDERED: ALPRAZolam 0.25 MG TAB PO PRN (18:56)
[2018-08-30] MEDS ORDERED: HYDROcodone/APAP 5-325MG 1 EACH TAB PO PRN (18:56)
[2018-08-30] MEDS ORDERED: ACETAMINOPHEN TAB 500 MG TAB PO PRN (18:56)
[2018-08-30] MEDS ORDERED: IPRATROPIUM-ALBUTEROL 3 ML NEB INHALATION PRN (18:57)
[2018-08-30] MEDS: VIT A,C & E-LUTEIN-MINERALS 1 EACH TAB PO SCH (20:38)
[2018-08-30] MEDS: NITROGLYCERIN OINT 1 INCH/GM PACKET TOPICAL SCH (20:38)
--- NOTE | 2018-08-30 20:58 | HP ---
HISTORY AND PHYSICAL DATE OF SERVICE: 08/30/2018 CHIEF COMPLAINT: Chest pain. HISTORY OF PRESENT ILLNESS: This 83-year-old gentleman with the past history of atrial fibrillation, history of COPD, history of GERD, hypertension, myocardial infarction and DJD, being followed by Dr. Morocho and Dr. Mckenna in the outpatient setting, was complaining of chest pain. The patient was apparently walking back from the barn and the noticed that the patient's hands were white and the patient was ashen looking. Patient also noted irregular heartbeat and the patient is complaining of left-sided chest pain. Patient taken to [facility] and admitted for further evaluation and treatment. There is no history of fever, rigors, headache or loss of consciousness. After admission the patient's hemoglobin was found to be 11. Troponins were negative. EKG showed normal sinus rhythm. EKG showed normal sinus with PACs. PAST MEDICAL HISTORY: History of atrial fibrillation, history of COPD, GERD, hypertension, myocardial infarction, history of DJD, history of pneumonia, history of chronic recurrent urinary tract infections, chronic respiratory infection, CAD, stent. MEDICATIONS PRIOR TO ADMISSION: 1. Prednisone 5 mg p.o. 2. Glipizide XL 10 mg p.o. daily. 3. PreserVision 1 capsule p.o. b.i.d. 4. Isoptin SR 240 mg b.i.d. 5. Zestril 5 mg p.o. b.i.d. 6. ( ) 1 drop q.h.s. 7. DuoNeb q.i.d. p.r.n. 8. Lipitor 20 mg p.o. 9. Aspirin 81 mg daily. ALLERGIES: None. FAMILY HISTORY: History of DJD, history of pneumonia. SOCIAL HISTORY: History of occasional alcohol. Previous history of smoking. REVIEW OF SYSTEMS: ENT: Diminished hearing, diminished vision. CARDIOVASCULAR: As mentioned earlier. RESPIRATORY: As mentioned earlier. GI: No nausea. : NO dysuria. NERVOUS SYSTEM: No numbness or weakness. ALLERGY/IMMUNOLOGY: As mentioned earlier. No asthma. MUSCULOSKELETAL: As mentioned earlier. HEMATOLOGY/ONCOLOGY: None. ENDOCRINE: No diabetes or hypothyroidism. CONSTITUTIONAL: As mentioned earlier. PSYCH: As mentioned earlier. PHYSICAL EXAMINATION: Alert and oriented times 3, pulse 90, blood pressure 140/89, respiration 18, temperature 98.4, pulse ox 99% on 2 L. HEENT: Conjunctivae normal. Oral mucosa moist. NECK: No jugular venous distention. No lymph node enlargement. CARDIOVASCULAR: S1, S2. RESPIRATORY: Diminished breath sounds at the bases. No rhonchi, no crackles. ABDOMEN: Soft, nontender. LEGS: No swelling. NERVOUS SYSTEM: Higher functions as mentioned earlier. Moves all 4 limbs. No focal motor deficits. LYMPHATICS: No lymph node in neck or axillae. SKIN: No ulcer, rash or bleeding. JOINTS: No active joint arthropathy. LAB STUDIES: WBC 9.2, hemoglobin 11, sodium 142, potassium 4.2. ASSESSMENT: 1. Chest pain, possible unstable angina. 2. Normal sinus rhythm with premature atrial contractions. 3. Microcytic anemia for evaluation. 4. History of atrial fibrillation. 5. History of chronic obstructive pulmonary disease. 6. History of coronary artery disease, stent. 7. History gastroesophageal reflux disease. 8. Hypertension. 9. History of hyperlipidemia. 10.History of degenerative joint disease. 11.History of pneumonia. 12.History of recurrent urinary tract infections. 13.History of renal cell cancer. 14.History of nephrectomy. 15.Remote history of nicotine dependence. RECOMMENDATIONS AND DISCUSSION: In this 83-year-old gentleman who presented with multiple complex medical issues, will monitor the patient closely, continue the current management, rule out myocardial infarction, resume the home medications, cardiology consultation. The patient apparently recently had a stress test in the cardiology office, will review that. The patient also had a carotid ultrasound also. Otherwise, resume the home medications. Prognosis guarded because of multiple complex medical issues. Further recommendation to follow. MMODL / IJN: [id number] /
[2018-08-30] MEDS ORDERED: LATANOPROST 0.005% OPHTH DROPS 2.5 ML BTL BOTH EYES SCH (21:00)
[2018-08-31] MEDS: NITROGLYCERIN OINT 1 INCH/GM PACKET TOPICAL SCH ×3 (00:12→11:39)
[2018-08-31 06:43] LABS: Anisocytosis Slight; Basophils % (A) 0 %; Eosinophils # (A) 0.2 k/uL (0-0.7); Eosinophils % (A) 3 %; HCT 32.4 % (39.0-53.0); HGB 9.6 gm/dL (13.0-17.5); Hypochromasia Marked; Lymphocytes # (A) 1.4 k/uL (1.0-4.8); Lymphocytes % (A) 17 %; MCH 21.2 pg (25.0-35.0); MCHC 29.7 g/dL (31.0-37.0); MCV 71.4 fL (80.0-100.0); Mean Platelet Volume 6.1; Microcytosis Moderate; Monocytes # (A) 0.5 k/uL (0-1.0); Monocytes % (A) 6 %; Neutrophils % (A) 73 %; Platelet Count 201 k/uL (150-450); RBC 4.53 m/uL (4.30-5.90); RDW 16.5 % (11.5-15.5); WBC 8.2 k/uL (3.8-10.6)
[2018-08-31 07:24] LABS: Calcium 8.5 mg/dL (8.4-10.2); Potassium 4.5 mmol/L (3.5-5.1)
[2018-08-31] MEDS ORDERED: PANTOPRAZOLE 40 MG TABLET PO SCH (07:30)
[2018-08-31] MEDS ORDERED: glipiZIDE 5 MG TAB PO SCH (07:30)
[2018-08-31 07:56] VITALS: RESP 18; TEMP 98
[2018-08-31] MEDS ORDERED: VERAPAMIL SR 240 MG TABLET.ER PO SCH (09:00)
[2018-08-31] MEDS ORDERED: ATORVASTATIN 20 MG TAB PO SCH (09:00)
[2018-08-31] MEDS ORDERED: ASPIRIN 325 MG TAB PO SCH (09:00)
[2018-08-31] MEDS ORDERED: predniSONE 5 MG TAB PO SCH (09:00)
[2018-08-31] MEDS ORDERED: LISINOPRIL 5 MG TAB PO SCH (09:00)
[2018-08-31] MEDS ORDERED: CAFFEINE CITRATE 60 MG/3 ML VIAL IV PRN (11:06)
[2018-08-31] MEDS ORDERED: REGADENOSON 0.4 MG/5 ML SYRINGE IV ONE (11:06)
[2018-08-31 11:37] VITALS: BP 161/83; PULSE 101
[2018-08-31] MEDS: VIT A,C & E-LUTEIN-MINERALS 1 EACH TAB PO SCH (11:58)
--- NOTE | 2018-08-31 12:57 | P.CNPUL ---
History of Present Illness Consult date: 08/31/18 Requesting physician: Roque Villalobos Reason for consult: dyspnea Chief complaint: Chest pain History of present illness: This is a very pleasant 83-year-old gentleman who follows with Dr. Morocho as his primary care physician. He has history of atrial fibrillation, coronary artery disease with previous stent placement, diabetes mellitus, gastroesophageal reflux disease, hyperlipidemia, hypertension, osteoarthritis, diverticulitis with previous bowel perforation and resection with colostomy and subsequent reversal, recurrent urinary tract infections, history of left renal cancer status post nephrectomy. The patient has a history of oxygen-dependent, steroid-dependent chronic obstructive pulmonary disease. He had recently undergone a stress test at Dr. Mckenna's office that was reported as normal. Yesterday the patient was outside working and developed chest pain and paleness in his hands. He presented here to the emergency room for the same. EKG reveals sinus rhythm with PACs. Troponins are negative 3. Chest x-ray shows borderline heart size with interstitial changes. Some mild pulmonary vascular congestion. Additional patchy left basilar atelectasis. White count 8.2. H emoglobin 9.6. Creatinine 1.13. He is currently on a heparin drip. He is being seen by cardiology. Review of Systems REVIEW OF SYSTEMS: CONSTITUTIONAL: Denies any recent significant weight loss or weight gain. EYES: Denies change in vision. EARS, NOSE, MOUTH, THROAT: Denies headaches, denies sore throat. CARDIOVASCULAR: Does have complaints of left-sided chest pain. No palpitations, no syncope. RESPIRATORY: Denies shortness of breath, cough, congestion or hemoptysis. GASTROINTESTINAL: Denies change in appetite, denies abdominal pain GENITOURINARY: Denies hematuria, denies infections. MUSKULOSKELETAL: Denies pain, denies swelling. INTEGUMENTARY: Denies rash, denies eczema. NEUROLOGICAL: Denies recent memory loss, no recent seizure activity. PSYCHIATRIC: Denies anxiety, denies depression. HEMATOLOGIC/LYMPHATIC: Denies anemia, denies enlarged lymph nodes. Past Medical History Past Medical History: Atrial Fibrillation, Coronary Artery Disease (CAD), Cancer, COPD, Eye Disorder, GERD/Reflux, Hyperlipidemia, Hypertension, Myocardial Infarction ([place]), Osteoarthritis (OA), Pneumonia, Renal Disease, Respiratory Disorder Additional Past Medical History / Comment(s): chronic and recurrent urinary tract infections, UTI with sepsis, diverticulitis, previous history of bowel perforation had a colostomy since reversed, BPH-prostatectomy, renal cancer (lt), skin cancer with removal, tremors(non parkinsons), bilateral glaucoma, R eye macular degeneration, chronic back pain, bronchits, uses 02 2 liters n/c prn, hiatal hernia. Last Myocardial Infarction Date:: 1999 History of Any Multi-Drug Resistant Organisms: None Reported Past Surgical History: Appendectomy, Bowel Resection, Heart Catheterization With Stent, Hernia Repair, Prostate Surgery Additional Past Surgical History / Comment(s): nephrectomy(lt), lung bx-neg, prostatectomy, 2 cardiac stents, basal cell skin ca removed, cheryl cataracts, L eye steel shard removed, bowel sx 8 inches removed had colostomy since reversed- past med hx stated still has metal clip left in place, L inguinal hernia repair, skin grafts rt arm-pt fell into hot tar on construction site. Past Anesthesia/Blood Transfusion Reactions: No Reported Reaction Date of Last Stent Placement:: 1999 Past Psychological History: No Psychological Hx Reported Additional Psychological History / Comment(s): Pt resides with his spouse and they are raising their 8 yr old great grandson who has autism and blindness. Pt uses no assistive device. He drives. Smoking Status: Former smoker Past Alcohol Use History: Occasional Additional Past Alcohol Use History / Comment(s): smoked x 30 years, 1ppd, quit 1987 Past Drug Use History: None Reported - Past Family History Father Family Medical History: Osteoarthritis (OA), Pneumonia Additional Family Medical History / Comment(s): from pne after hip sx Mother Family Medical History: Cancer Additional Family Medical History / Comment(s): throat cancer Medications and Allergies Home Medications Medication Instructions Recorded Confirmed Type Atorvastatin [Lipitor] 20 mg PO QAM 03/19/15 08/30/18 History Latanoprost 1 drop BOTH EYES HS 03/19/15 08/30/18 History Verapamil Sr [Isoptin Sr] 240 mg PO DAILY 03/19/15 08/30/18 History glipiZIDE [Glipizide Xl] 10 mg PO DAILY 03/19/15 08/30/18 History predniSONE [Prednisone] 5 mg PO DAILY 03/19/15 08/30/18 History Vit C/E/Zn/Coppr/Lutein/Zeaxan 1 cap PO BID 03/17/17 08/30/18 History [Preservision Areds 2 Softgel] Aspirin 81 mg PO DAILY 03/20/17 08/30/18 Rx Ipratropium-Albuterol Nebulize 3 ml INHALATION RT-QID PRN neb 03/20/17 08/30/18 Rx [Duoneb 0.5 mg-3 mg/3 ml Soln] Lisinopril [Zestril] 5 mg PO DAILY 08/30/18 08/30/18 History Allergies Allergy/AdvReac Type Severity Reaction Status Date / Time No Known Allergies Allergy Verified 08/30/18 15:41 Physical Exam Vitals: Vital Signs Temp Pulse Pulse Resp BP BP BP 08/31/18 11:36 98.0 F 101 H 18 161/83 08/31/18 07:40 98.0 F 91 18 112/68 08/31/18 03:28 98.2 F 80 16 114/68 08/31/18 03:15 84 16 08/30/18 23:38 98.2 F 90 15 91/51 08/30/18 23:19 79 15 08/30/18 20:00 80 15 08/30/18 19:05 97.7 F 99 15 157/78 08/30/18 17:55 90 18 120/79 08/30/18 16:48 90 18 146/89 08/30/18 15:46 98.5 F 90 18 147/88 08/30/18 14:50 88 24 160/88 08/30/18 14:26 98.7 F 95 18 180/83 Pulse Ox 08/31/18 11:36 95 08/31/18 07:40 96 08/31/18 03:28 97 08/31/18 03:15 08/30/18 23:38 97 08/30/18 23:19 08/30/18 20:00 08/30/18 19:05 98 08/30/18 17:55 98 08/30/18 16:48 99 08/30/18 15:46 97 08/30/18 14:50 96 08/30/18 14:26 96 Intake and Output 08/30/18 08/31/18 08/31/18 22:59 06:59 14:59 Intake Total 300 Output Total 3 Balance 300 -3 Intake: Oral 300 Output: Urine 3 Other: Voiding Method Toilet Toilet GENERAL EXAM: Alert, obese, comfortable in no apparent distress. On 2 L nasal cannula. HEAD: Normocephalic. EYES: Normal reaction of pupils, equal size. NOSE: Clear with pink turbinates. THROAT: No erythema or exudates. NECK: No masses, no JVD. CHEST: No chest wall deformity. LUNGS: Equal air entry with no crackles, wheeze, rhonchi or dullness. CVS: S1 and S2 normal with no audible murmur, regular rhythm. ABDOMEN: No hepatosplenomegaly, normal bowel sounds, no guarding or rigidity. SPINE: No scoliosis or deformity SKIN: No rashes CENTRAL NERVOUS SYSTEM: No focal deficits, tone is normal in all 4 extremities. EXTREMITIES: There is no peripheral edema. No clubbing, no cyanosis. Peripheral pulses are intact. Results - Laboratory Findings CBC and BMP: 08/31/18 05:56 08/31/18 05:56 PT/INR, D-dimer PT 10.4 sec (9.0-12.0) 08/30/18 14:43 INR 1.0 (<1.2) 08/30/18 14:43 Abnormal lab findings: Abnormal Labs 08/30/18 08/30/18 08/30/18 14:43 14:43 21:46 Hgb 11.0 L Hct 37.4 L MCV 69.5 L MCH 20.5 L MCHC 29.5 L RDW 16.8 H APTT 72.0 H Chloride 110 H BUN 22 H HDL Cholesterol 08/31/18 08/31/18 08/31/18 05:56 05:56 05:56 Hgb 9.6 L Hct 32.4 L MCV 71.4 L MCH 21.2 L MCHC 29.7 L RDW 16.5 H APTT 61.1 H Chloride 110 H BUN 22 H HDL Cholesterol 30 L - Diagnostic Findings Chest x-ray: image reviewed Assessment and Plan Assessment: Impression: #1 Atypical chest pain in a patient with a known history of coronary artery disease and previous stent placement. Stress test approximately one month ago reported as normal. No significant EKG changes. Troponins negative 3. #2 Coronary artery disease with previous stent placements. #3 Morbid obesity. #4 Chronic obstructive pulmonary disease, oxygen dependent, steroid dependent. Currently inactive and stable. #5 Atrial fibrillation, paroxysmal. Currently in sinus rhythm with frequent PACs. #6 Hypertension. #7 Hyperlipidemia. #8 Gastroesophageal reflux disease. #9 Diabetes mellitus. #10 History of bowel perforation status post colostomy and subsequent reversal. #11 Remote history of chronic tobacco dependence. #12 History of lung biopsy, negative for malignancy. #13 Frequent urinary tract infections including Serratia, E. coli, Proteus mirabilis, Klebsiella pneumoniae. Plan: The patient was seen and evaluated by Dr. Mittal. He is stable from the pulmonary standpoint. He could be discharged home if cleared by cardiology. Follow-up in our office in 1 week. Continue his home pulmonary medications. He has home oxygen and is on prednisone 5 mg daily. He and his are both encouraged to call sooner with any recurrence of symptoms or other questions or concerns. I, the cosigning physician, performed a history & physical examination of the patient. Lungs sounds are clear diminished. Maintaining good O2 saturations in the 90s on 2 L/m per nasal cannula. I discussed the assessment and plan of care with my nurse practitioner, Natalie Oliveira. I attest to the above consultation as dictated by her. Time with Patient: Greater than 30
--- NOTE | 2018-08-31 13:39 | CONS ---
CONSULTATION Mr. Narvaez is an 83-year-old gentleman who is seen for cardiac evaluation. This patient has a known history of coronary artery disease with a prior history of a stent placement, high blood pressure and high cholesterol and patient has exertional shortness of breath. The patient gives a history that he walked outside to look for is garbage can cover and subsequently he started having some pressure in the chest and shortness of breath. The patient also had some back discomfort. The patient usually gives a history that he does have a exertional shortness of breath and he can walk only short distance. Patient is regularly followed by Dr. Mckenna. The patient recently had a stress echo and echocardiographic study. He exercised for 6 minutes and there was no evidence of stress-induced ischemia. HOME MEDICATIONS: Patient's home medications include Lipitor 20 mg daily, verapamil 240 mg daily, glipizide 10 mg daily, prednisone 5 mg daily, baby aspirin once a day. PAST MEDICAL HISTORY: Past medical history includes a history of possible atrial fibrillation, history of hypertension, hyperlipidemia and known coronary artery disease and history of COPD. Patient also has a history of recurrent urinary tract infections. Appendicectomy, bowel resection, prior history of cardiac catheterization, hernia repair. SMOKING HISTORY: Patient is a former smoker. PHYSICAL EXAMINATION: Physical examination at present reveals an 83-year-old gentleman who does not appear to be in any acute distress. In the emergency room, patient's vital signs were stable, but blood pressure was mildly elevated 180/83 mmHg. Subsequently it came down to 147/88 mm of Hg. Head/ENT examination is negative. Neck is supple. There is no increase in jugular venous pressure. Both the carotid pulses are felt. There is no bruit. Chest is symmetrical. HEART: The PMI is not felt. First and second heart sounds are heard. Lungs reveal bilateral fibrotic rales. Abdomen is negative. EXTREMITIES: Peripheral pulsations are not felt very well. The patient's hemoglobin is 11 g. Electrolytes are normal. Patient's creatinine is 1.03 with a GFR of 79. EKG shows normal sinus rhythm without any acute ischemic changes. The patient's electrolytes are normal. Two sets of troponins are normal. Patient's LDL is 138. IMPRESSION: This patient is admitted with symptoms suggestive of atypical angina. EKGs and cardiac enzymes were normal. Patient recently had an echocardiogram and stress echocardiographic study and they were normal. In view of that, the patient can be discharged home and he will follow up with Dr. Mckenna as an outpatient. MMRAVENL / IJN: [id number] /
--- NOTE | 2018-08-31 16:01 | P.DS ---
Providers Date of admission: 08/30/18 16:13 Expected date of discharge: 08/31/18 Attending physician: Roque Rutherford Consults: 08/30/18 16:13 Consult Physician Urgent Consulting Provider: [facility] Consult Reason/Comments: Unstable angina Do you want consulting provider notified?: Yes 08/30/18 18:56 Consult Physician Routine Consulting Provider: Melany Mittal Consult Reason/Comments: knew the pt Do you want consulting provider notified?: Yes Primary care physician: [facility] Course: Final Diagnoses: -Atypical chest pain, possible unstable angina in a patient with a known history of coronary artery disease and previous stent placement. Stress test approximately one month ago reported as normal. No significant EKG changes. Troponins negative 3. -History of paroxysmal atrial fibrillation, currently Normal sinus rhythm with PACs -Microcytic anemia, asymptomatic, further follow-up outpatient -Obesity, BMI 30.9. -Chronic obstructive pulmonary disease, oxygen dependent, steroid dependent. Currently inactive and stable. -Diabetes mellitus -Gastroesophageal reflux disease -Hypertension. - Hyperlipidemia. -Remote history of chronic tobacco dependence. EXAM: General: Alert and oriented 3, no acute distress LUNGS: Equal air entry with no crackles, wheeze, rhonchi or dullness. CVS: S1 and S2 normal with no audible murmur, regular rhythm. ABDOMEN: Soft, and nontender, No hepatosplenomegaly, positive bowel sounds, no guarding or rigidity. CENTRAL NERVOUS SYSTEM: No focal deficits Hospital course: This a pleasant 83-year-old gentleman admitted with chest pain, with history of atrial fibrillation, CAD with prior stent placement, diabetes mellitus and multiple other medical issues. Recent stress test with Dr. Mckenna. EKG reporting sinus rhythm with PACs, troponins negative 3, chest x-ray reporting borderline heart size with interstitial changes, mild pulmonary vascular congestion and additional patchy left basilar atelectasis. Maintained on heparin drip. Evaluated by both pulmonary and cardiology. Significant clinical improvement. Cleared by all consults for discharge. Patient is being discharged home in a stable condition with guarded prognosis. The impression and plan of care has been dictated as directed. : I performed a history and examination of this patient, discussed the same with the dictator. I agree with the dictator's note ,documented as a scribe. Any additional findings or plans will be noted. Time taken: 35 minutes. Patient Condition at Discharge: Stable Plan - Discharge Summary Discharge Rx Participant: No New Discharge Prescriptions: Continue Atorvastatin [Lipitor] 20 mg PO QAM glipiZIDE [Glipizide Xl] 10 mg PO DAILY Latanoprost 1 drop BOTH EYES HS predniSONE [Prednisone] 5 mg PO DAILY Verapamil Sr [Isoptin Sr] 240 mg PO DAILY Vit C/E/Zn/Coppr/Lutein/Zeaxan [Preservision Areds 2 Softgel] 1 cap PO BID Aspirin 81 mg PO DAILY Ipratropium-Albuterol Nebulize [Duoneb 0.5 mg-3 mg/3 ml Soln] 3 ml INHALATION RT-QID PRN neb PRN Reason: Shortness Of Breath Or Wheezing Lisinopril [Zestril] 5 mg PO DAILY Discharge Medication List Atorvastatin [Lipitor] 20 mg PO QAM 03/19/15 [History] Latanoprost 1 drop BOTH EYES HS 03/19/15 [History] Verapamil Sr [Isoptin Sr] 240 mg PO DAILY 03/19/15 [History] glipiZIDE [Glipizide Xl] 10 mg PO DAILY 03/19/15 [History] predniSONE [Prednisone] 5 mg PO DAILY 03/19/15 [History] Vit C/E/Zn/Coppr/Lutein/Zeaxan [Preservision Areds 2 Softgel] 1 cap PO BID 03/17/17 [History] Aspirin 81 mg PO DAILY 03/20/17 [Rx] Ipratropium-Albuterol Nebulize [Duoneb 0.5 mg-3 mg/3 ml Soln] 3 ml INHALATION RT-QID PRN neb 03/20/17 [Rx] Lisinopril [Zestril] 5 mg PO DAILY 08/30/18 [History] Follow up Appointment(s)/Referral(s): Mary Morocho MD [Primary Care Provider] - 1 Week Prema Mckenna MD [Family Provider] - 09/07/18 10:15 am [place] MD [STAFF PHYSICIAN] - 2 Weeks (Anemia workup) Ambulatory/Diagnostic Orders: Complete Blood Count w/diff [LAB.AMB] Time Frame: 3 Days, Location: None Selected Patient Instructions/Handouts: Chest Pain (DC)
== END 2018-08-31 14:16 ==
LOC: EC 14:21 → 1SOBS 16:13
PROVIDERS: ADMIT Hospitalist; ATTEND Hospitalist
DX: R07.89 Other chest pain (principal); R06.02 Shortness of breath; I25.10 Atherosclerotic heart disease of native coronary artery without angina pectoris; Z95.5 Presence of coronary angioplasty implant and graft; I48.0 Paroxysmal atrial fibrillation; D50.9 Iron deficiency anemia, unspecified; E66.01 Morbid (severe) obesity due to excess calories; Z68.30 Body mass index [BMI] 30.0-30.9, adult; J44.9 Chronic obstructive pulmonary disease, unspecified; E11.9 Type 2 diabetes mellitus without complications; K21.9 Gastro-esophageal reflux disease without esophagitis; I10 Essential (primary) hypertension; E78.5 Hyperlipidemia, unspecified; J98.11 Atelectasis; Z99.81 Dependence on supplemental oxygen; I25.2 Old myocardial infarction; M19.90 Unspecified osteoarthritis, unspecified site; H40.9 Unspecified glaucoma; H35.30 Unspecified macular degeneration; G89.29 Other chronic pain; M54.9 Dorsalgia, unspecified; I49.1 Atrial premature depolarization; Z87.891 Personal history of nicotine dependence; Z87.01 Personal history of pneumonia (recurrent); Z87.440 Personal history of urinary (tract) infections; Z87.19 Personal history of other diseases of the digestive system; Z85.828 Personal history of other malignant neoplasm of skin; Z85.528 Personal history of other malignant neoplasm of kidney; Z86.19 Personal history of other infectious and parasitic diseases; Z79.52 Long term (current) use of systemic steroids; Z79.84 Long term (current) use of oral hypoglycemic drugs; Z79.899 Other long term (current) drug therapy; Z79.82 Long term (current) use of aspirin; Z90.5 Acquired absence of kidney; Z80.8 Family history of malignant neoplasm of other organs or systems; Z82.61 Family history of arthritis
CPT/HCPCS: 96376; 96374; 99291; 36415; 93005; 80061; 80053; 80048; 83735; 84484 ×2; 85025 ×2; 85610; 85730 ×2; 71046; G0378 ×2; J1644 ×2; J7512

== ENCOUNTER 2019-06-24 19:33 | Observation (INO) | payer MEDICARE, BC ==
[2019-06-24] MEDS ORDERED: HEPARIN SODIUM,PORCINE 5,000 UNIT/ML 1 ML VIAL IV PRN (20:23)
[2019-06-24] MEDS ORDERED: HEPARIN SOD,PORK IN 0.45% NACL 25,000 UNIT in 0.45% NACL 1 250ML.BAG IV SCH (20:30)
--- NOTE | 2019-06-24 20:44 | ED ---
General Adult HPI - General Chief complaint: Chest Pain Stated complaint: chest pain Time Seen by Provider: 06/24/19 19:35 Source: EMS Mode of arrival: EMS Limitations: no limitations - History of Present Illness Initial comments: Dictation was produced using [employer] dictation software. please excuse any grammatical, word or spelling errors. Chief Complaint: 84-year-old male transferred from [facility] emergency department for concerns of unstable angina. History of Present Illness: An 84-year-old male he was initially seen and evalu ated at [facility] emergency department. He was evaluated for the chief complaint of chest pain. She was worked up there had negative troponin he had an EKG that was unremarkable. He does have significant risk factors patient had negative workup including negative troponin however given his clinical presentation and emergency doctor there started patient on heparin. A stretcher here for cardiology consultation. According to transferring physician was concerned that patient was experiencing an arrhythmia area patient denies any chest pain at this time. Patient reports that he was having some chest pain substernally while he was watching TV. He did get 2 sublingual nitroglycerin which did improve his pain. The ROS documented in this emergency department record has been reviewed and c onfirmed by me. Those systems with pertinent positive or negative responses have been documented in the HPI. All other systems are other negative and/or noncontributory. PHYSICAL EXAM: General Impression: Alert and oriented x3, not in acute distress HEENT: Normocephalic atraumatic, extra-ocular movements intact, pupils equal and reactive to light bilaterally, mucous membranes moist. Cardiovascular: Heart regular rate and rhythm, S1&S2 audible, no murmurs, rubs or gallops Chest: Lungs clear to auscultation bilaterally, no rhonchi, no wheeze, no rales Abdomen: Bowel sounds present, abdomen soft, non-tender, non-distended, no organomegaly Musculoskeletal: Pulses present and equal in all extremities, no peripheral edema Motor: no focal deficits noted Neurological: CN II-XII grossly intact, no focal motor or sensory deficits noted Skin: Intact with no visualized rashes Psych: Normal affect and mood ED course: 84 y Old male transferred from [facility] for unstable angina. Upon arrival are within acceptable limits. The transfer documentation was reviewed in its entirety. Patient negative cardiac workup thus 4. EKG was obtained showing no signs of ischemia or infarction. There are however are multiple PVCs. Patient will be admitted with cardiology consultation and serial troponins. Patient will be admitted to [facility] hospitalist group. EKG interpretation: Ventricular rate 67, sinus rhythm,. Interval 122, care is 80, QTc 435. No IN prolongation, no QTC prolongation, no ST or T-wave changes noted. Overall, this EKG is unremarkable - Related Data Home Medications Medication Instructions Recorded Confirmed Atorvastatin [Lipitor] 20 mg PO QAM 03/19/15 08/30/18 Latanoprost 1 drop BOTH EYES HS 03/19/15 08/30/18 Verapamil Sr [Isoptin Sr] 240 mg PO DAILY 03/19/15 08/30/18 glipiZIDE [Glipizide Xl] 10 mg PO DAILY 03/19/15 08/30/18 predniSONE [Prednisone] 5 mg PO DAILY 03/19/15 08/30/18 Vit C/E/Zn/Coppr/Lutein/Zeaxan 1 cap PO BID 03/17/17 08/30/18 [Preservision Areds 2 Softgel] Lisinopril [Zestril] 5 mg PO DAILY 08/30/18 08/30/18 Previous Rx's Medication Instructions Recorded Aspirin 81 mg PO DAILY 03/20/17 Ipratropium-Albuterol Nebulize 3 ml INHALATION RT-QID PRN neb 03/20/17 [Duoneb 0.5 mg-3 mg/3 ml Soln] Allergies Allergy/AdvReac Type Severity Reaction Status Date / Time No Known Allergies Allergy Verified 08/30/18 15:41 Review of Systems ROS Statement: Those systems with pertinent positive or pertinent negative responses have been documented in the HPI. ROS Other: All systems not noted in ROS Statement are negative. Past Medical History Past Medical History: Atrial Fibrillation, Coronary Artery Disease (CAD), Cancer, COPD, Eye Disorder, GERD/Reflux, Hyperlipidemia, Hypertension, Myocardial Infarction ([place]), Osteoarthritis ([place]), Pneumonia, Renal Disease, Respiratory Disorder Additional Past Medical History / Comment(s): chronic and recurrent urinary tr act infections, UTI with sepsis, diverticulitis, previous history of bowel perforation had a colostomy since reversed, BPH-prostatectomy, renal cancer (lt), skin cancer with removal, tremors(non parkinsons), bilateral glaucoma, R eye macular degeneration, chronic back pain, bronchits, uses 02 2 liters n/c prn, hiatal hernia. Last Myocardial Infarction Date:: 1999 History of Any Multi-Drug Resistant Organisms: None Reported Past Surgical History: Appendectomy, Bowel Resection, Heart Catheterization With Stent, Hernia Repair, Prostate Surgery Additional Past Surgical History / Comment(s): nephrectomy(lt), lung bx-neg, prostatectomy, 2 cardiac stents, basal cell skin ca removed, cheryl cataracts, L eye steel shard removed, bowel sx 8 inches removed had colostomy since reversed- past med hx stated still has metal clip left in place, L inguinal hernia repair, skin grafts rt arm-pt fell into hot tar on construction site. Past Anesthesia/Blood Transfusion Reactions: No Reported Reaction Date of Last Stent Placement:: 1999 Past Psychological History: No Psychological Hx Reported Smoking Status: Former smoker Past Alcohol Use History: Occasional Past Drug Use History: None Reported - Past Family History Father Family Medical History: Osteoarthritis ([place]), Pneumonia Additional Family Medical History / Comment(s): from pne after hip sx Mother Family Medical History: Cancer Additional Family Medical History / Comment(s): throat cancer General Exam Limitations: no limitations Course Vital Signs 06/24/19 19:35 Temperature 98.6 F Pulse Rate 74 Respiratory 18 Rate Blood Pressure 150/75 O2 Sat by Pulse 98 Oximetry Medical Decision Making - Lab Data Lab Results 06/24/19 Range/Units 20:29 Troponin I <0.012 (0.000-0.034) ng/mL Disposition Clinical Impression: Chest pain Disposition: ADMITTED IP TO THIS [facility] Condition: Fair Referrals: Mary Morocho MD [Primary Care Provider] - 1-2 days Decision Time: 21:19
[2019-06-24] MEDS ORDERED: NITROGLYCERIN SL TABS 0.4 MG TAB SUBLINGUAL PRN (21:17)
[2019-06-24 22:12] VITALS: RESP 18
[2019-06-24] MEDS ORDERED: LATANOPROST 0.005% OPHTH DROPS 2.5 ML BTL BOTH EYES SCH (23:00)
[2019-06-24] MEDS: VIT A,C & E-LUTEIN-MINERALS 1 EACH TAB PO SCH (23:25)
[2019-06-25 03:45] LABS: Cholesterol 96 mg/dL (<200); HDL Cholesterol 27 mg/dL (40-60)
[2019-06-25 04:08] LABS: LDL Cholesterol,Calculated 39 mg/dL (0-99); Triglycerides 150 mg/dL (<150)
[2019-06-25 07:13] LABS: Glucose,Whole Blood 71 mg/dL (75-99)
[2019-06-25] MEDS: VIT A,C & E-LUTEIN-MINERALS 1 EACH TAB PO SCH (08:11)
[2019-06-25] MEDS ORDERED: METOPROLOL TARTRATE 50 MG TAB PO SCH (09:00)
[2019-06-25] MEDS ORDERED: ASPIRIN 325 MG TAB PO SCH (09:00)
[2019-06-25] MEDS ORDERED: ASPIRIN 81 MG PO SCH (09:00)
[2019-06-25] MEDS ORDERED: LISINOPRIL 20 MG TAB PO SCH (09:00)
[2019-06-25 11:22] VITALS: BP 148/73; PULSE 60; TEMP 98.2
[2019-06-25 11:30] LABS: Glucose,Whole Blood 230 mg/dL (75-99)
--- NOTE | 2019-06-25 12:23 | CONS ---
CONSULTATION This is an 84-year-old gentleman, a patient who sees Dr. Mckenna in the outpatient setting. He presented to the hospital upon transfer from [facility] with complaints of chest pain. He was sitting around not doing anything physical when he experienced a sharp pain in the chest and took 2 nitros, with inconsistent relief, and then went to the emergency room at [facility], where he was transferred here. His 3 sets of troponins, including one at [facility], were unremarkable. He has not had further pain. The quality of pain seems very atypical and the relief with nitroglycerin happened after to 5-10 minutes and was not immediate relief that he had. He is resting comfortably without symptoms. He was here in August of 2018 and subsequently about 3-4 months ago, had a stress test in the office with Dr. Mckenna which was negative. He is resting comfortably without symptoms. Troponins are normal. EKG does not reveal any acute changes. PAST MEDICAL HISTORY: Past medical history is remarkable for CAD with previous stents, the last one in year 1999. A recent stress test was negative. Hypertension, hyperlipidemia, type 2 diabetes mellitus. He is status post appendectomy, bowel resection and prostate surgery. ALLERGIES: NONE. MEDICATIONS: Medications include: 1. Lipitor 20 mg daily. 2. Verapamil SR 240 mg daily. 3. Glipizide XL 10 mg daily. 4. Prednisone 5 mg daily. 5. Lisinopril 5 mg daily. 6. Aspirin 81 mg. 7. He uses a DuoNeb nebulizer. PHYSICAL EXAMINATION: Blood pressure is 154/78, pulse rate is 73 per minute. HEENT: Unremarkable. Fundus was not examined by me. Neck is supple. There is no JVD. I do not hear any carotid bruit. Heart examination reveals S1, S2 heard normally. There is no significant rub, murmur or gallop. Lungs reveal decent air entry. There are some scattered rales. Abdomen is soft, nontender. Lower extremities reveal normal pulses. No edema. Central nervous system is grossly within normal limits. EKG revealed a sinus mechanism with a PAC and nonspecific ST abnormality with voltage criteria for LVH. Laboratory data reveal that 3 sets of troponins are normal. IMPRESSION: 1. Atypical chest pain in a patient with known coronary artery disease. 2. Hypertension. 3. Diabetes. 4. Hyperlipidemia. RECOMMENDATIONS: I am recommending that the patient can be discharged. His pain is atypical. His recent stress test within the last 3-4 months was negative. I am going to discontinue Isoptin, place him on metoprolol tartrate 50 mg daily, increase the lisinopril from 10 to 20 mg daily, obtain echocardiogram. He can be discharged and follow up with Dr. Mckenna in 2 weeks. Discussed my thoughts in detail with the patient. Thank you very much for the consult. MMODL / IJN: [id number] /
--- NOTE | 2019-06-25 15:57 | ECHOF ---
Referral Reason:chest pain MEASUREMENTS -------- HEIGHT: 162.6 cm WEIGHT: 77.1 kg BP: 169/82 RVIDd: 2.9 cm (< 3.3) IVSd: 1.6 cm (0.6 - 1.1) LVIDd: 4.2 cm (3.9 - 5.3) LVPWd: 1.4 cm (0.6 - 1.1) IVSs: 2.0 cm LVIDs: 3.3 cm LVPWs: 1.9 cm LA Diam: 3.9 cm (2.7 - 3.8) LAESV Index (A-L): 30.89 ml/m Ao Diam: 3.7 cm (2.0 - 3.7) AV Cusp: 2.0 cm (1.5 - 2.6) MV EXCURSION: 16.226 mm (> 18.000) MV EF SLOPE: 50 mm/s (70 - 150) EPSS: 1.0 cm MV E Camacho: 0.78 m/s MV DecT: 257 ms MV A Camacho: 0.99 m/s MV E/A Ratio: 0.80 AR PHT: 458 ms RAP: 5.00 mmHg RVSP: 32.74 mmHg TAPSE: 16.49 mm FINDINGS -------- Sinus rhythm. This was a technically good study. The left ventricular size is normal. There is moderate concentric left ventricular hypertrophy. O verall left ventricular systolic function is normal with, an EF between 55 - 60 %. The right ventricle is normal in size. LA is midly dilated 29-33ml/m2. The right atrium is normal in size. Lipomatous Hypertrophy of the atrial septum is present There is mild aortic valve sclerosis. There is mild aortic regurgitation. The mitral valve is normal. Mild tricuspid regurgitation present. Right ventricular systolic pressure is normal at < 35 mmHg. Trace/mild (physiologic) pulmonic regurgitation. The aortic root size is normal. Normal inferior vena cava with normal inspiratory collapse consistent with estimated right atrial pre ssure of 5 mmHg. There is no pericardial effusion. CONCLUSIONS -------- 1. Sinus rhythm. 2. This was a technically good study. 3. The left ventricular size is normal. 4. There is moderate concentric left ventricular hypertrophy. 5. Overall left ventricular systolic function is normal with, an EF between 55 - 60 %. 6. The right ventricle is normal in size. 7. LA is midly dilated 29-33ml/m2. 8. The right atrium is normal in size. 9. Lipomatous Hypertrophy of the atrial septum is present 10. There is mild aortic valve sclerosis. 11. There is mild aortic regurgitation. 12. The mitral valve is normal. 13. Mild tricuspid regurgitation present. 14. Right ventricular systolic pressure is normal at < 35 mmHg. 15. Trace/mild (physiologic) pulmonic regurgitation. 16. The aortic root size is normal. 17. Normal inferior vena cava with normal inspiratory collapse consistent with estimated right atrial pressure of 5 mmHg. 18. There is no pericardial effusion. IT TELECOM TECHNICIAN: Ainsley Christine RDCS
--- NOTE | 2019-07-22 10:03 | P.HPIM ---
History of Present Illness H&P Date: 06/25/19 Chief Complaint: chest pain An 84-year-old male he was initially seen and evaluated at [facility] [place] emergency department. He was evaluated for the chief complaint of chest pain. She was worked up there had negative troponin he had an EKG that was unremarkable. He d oes have significant risk factors patient had negative workup including negative troponin however given his clinical presentation and emergency doctor there started patient on heparin. A stretcher here for cardiology consultation. According to transferring physician was concerned that patient was experiencing an arrhythmia area patient denies any chest pain at this time. Patient reports that he was having some chest pain substernally while he was watching TV. He did get 2 sublingual nitroglycerin which did improve his pain. EKG was obtained showing no signs of ischemia or infarction. There are however are multiple PVCs. Patient will be admitted with cardiology consultation and serial troponins. Review of Systems REVIEW OF SYSTEMS: CONSTITUTIONAL: No fever, no malaise, no fatigue. HEENT: No recent visual problems or hearing problems. Denied any sore throat. CARDIOVASCULAR: Chest pain. PULMONARY: No shortness of breath, no cough, no hemoptysis. GASTROINTESTINAL: No diarrhea, no nausea, no vomiting, no abdominal pain. NEUROLOGICAL: No headaches, no weakness, no numbness. HEMATOLOGICAL: Denies any bleeding or petechiae. GENITOURINARY: Denies any burning micturition, frequency, or urgency. MUSCULOSKELETAL/RHEUMATOLOGICAL: Denies any joint pain, swelling, or any muscle pain. ENDOCRINE: Denies any polyuria or polydipsia. The rest of the 14-point review of systems is negative. Past Medical History Past Medical History: Atrial Fibrillation, Coronary Artery Disease (CAD), Cancer, COPD, Eye Disorder, GERD/Reflux, Hyperlipidemia, Hypertension, Myocardial Infarction (ID), Osteoarthritis (OA), Pneumonia, Renal Disease, Respiratory Disorder Additional Past Medical History / Comment(s): chronic and recurrent urinary tract infections, UTI with sepsis, diverticulitis, previous history of bowel perforation had a colostomy since reversed, BPH-prostatectomy, renal cancer (lt), skin cancer with removal, tremors(non parkinsons), bilateral glaucoma, R eye macular degeneration, chronic back pain, bronchitis, uses 02 2 liters n/c p rn, hiatal hernia. Last Myocardial Infarction Date:: 1999 History of Any Multi-Drug Resistant Organisms: None Reported Past Surgical History: Appendectomy, Bowel Resection, Heart Catheterization With Stent, Hernia Repair, Prostate Surgery Additional Past Surgical History / Comment(s): nephrectomy(lt), lung bx-neg, prostatectomy, 2 cardiac stents, basal cell skin ca removed, cheryl cataracts, L eye steel shard removed, bowel sx 8 inches removed had colostomy since reversed- past med hx stated still has metal clip left in place, L inguinal hernia repair, skin grafts rt arm-pt fell into hot tar on construction site. Past Anesthesia/Blood Transfusion Reactions: No Reported Reaction Date of Last Stent Placement:: 1999 Past Psychological History: No Psychological Hx Reported Additional Psychological History / Comment(s): Pt resides with his spouse and they are raising their 10 yr old great grandson who has autism and blindness. Pt uses no assistive device. He drives. Smoking Status: Former smoker Past Alcohol Use History: Occasional Past Drug Use History: None Reported - Past Family History Father Family Medical History: Osteoarthritis (OA), Pneumonia Additional Family Medical History / Comment(s): from pne after hip sx Mother Family Medical History: Cancer Additional Family Medical History / Comment(s): throat cancer Medications and Allergies Home Medications Medication Instructions Recorded Confirmed Type Atorvastatin [Lipitor] 40 mg PO QAM 03/19/15 06/24/19 History Latanoprost 1 drop BOTH EYES HS 03/19/15 06/24/19 History glipiZIDE [Glipizide Xl] 10 mg PO DAILY 03/19/15 06/24/19 History predniSONE [Prednisone] 5 mg PO DAILY 03/19/15 06/24/19 History Vit C/E/Zn/Coppr/Lutein/Zeaxan 1 cap PO BID 03/17/17 06/24/19 History [Preservision Areds 2 Softgel] Aspirin 81 mg PO DAILY 03/20/17 06/24/19 Rx Ipratropium-Albuterol Nebulize 3 ml INHALATION RT-QID PRN neb 03/20/17 06/24/19 Rx [Duoneb 0.5 mg-3 mg/3 ml Soln] Lisinopril [Zestril] 20 mg PO DAILY #30 tab 06/25/19 Rx Metoprolol Tartrate [Lopressor] 50 mg PO DAILY #30 tab 06/25/19 Rx Allergies Allergy/AdvReac Type Severity Reaction Status Date / Time No Known Allergies Allergy Verified 06/24/19 22:07 Physical Exam Vitals: Vital Signs Temp Pulse Pulse Pulse Resp BP BP 06/25/19 07:43 97.8 F 93 18 169/82 06/25/19 04:00 97.8 F 73 18 154/78 06/24/19 23:33 98.2 F 81 18 151/72 06/24/19 22:00 97.9 F 77 18 169/78 06/24/19 21:30 98.0 F 74 20 154/77 06/24/19 20:30 72 74 20 144/78 06/24/19 19:35 98.6 F 74 18 150/75 Pulse Ox 06/25/19 07:43 92 L 06/25/19 04:00 92 L 06/24/19 23:33 92 L 06/24/19 22:00 95 06/24/19 21:30 98 06/24/19 20:30 98 06/24/19 19:35 98 Intake and Output 06/24/19 06/25/19 06/25/19 22:59 06:59 14:59 Intake Total 55.672 Balance 55.672 Intake: Intake, IV Titration 55.672 Amount Heparin Sod,Pork in 0.45% 55.672 NaCl 25,000 unit In 0.45 % NaCl 1 250ml.bag @ 12 UNITS/KG/HR 9.253 mls/hr IV .Q24H [facility] Rx#: [id number] Other: Voiding Method Toilet Toilet Toilet # Voids 1 1 Weight 77.111 kg PHYSICAL EXAMINATION: GENERAL: The patient is alert and oriented x3, not in any acute distress. Well developed, well nourished. HEENT: Pupils are round and equally reacting to light. EOMI. No scleral icterus. No conjunctival pallor. Normocephalic, atraumatic. No pharyngeal erythema. No thyromegaly. CARDIOVASCULAR: S1 and S2 present. No murmurs, rubs, or gallops. PULMONARY: Chest is clear to auscultation, no wheezing or crackles. ABDOMEN: Soft, nontender, nondistended, normoactive bowel sounds. No palpable organomegaly. MUSCULOSKELETAL: No joint swelling or deformity. EXTREMITIES: No cyanosis, clubbing, or pedal edema. NEUROLOGICAL: Gross neurological examination did not reveal any focal deficits. SKIN: No rashes. Results Labs: Abnormal Lab Results - Last 24 Hours (Table) 06/25/19 06/25/19 Range/Units 02:55 07:12 POC Glucose (mg/dL) 71 L (75-99) mg/dL Triglycerides 150 H (<150) mg/dL HDL Cholesterol 27 L (40-60) mg/dL Thrombosis Risk Factor Assmnt - Choose All That Apply Any of the Below Risk Factors Present?: Yes Each Factor Represents 1 point: Abnormal pulmonary function (COPD), Obesity (BMI >25) Other Risk Factors: Yes Each Risk Factor Represents 3 Points: Age 75 years or older Other congenital or acquired thrombophilia - If yes, enter type in comment: No Thrombosis Risk Factor Assessment Total Risk Factor Score: 5 Thrombosis Risk Factor Assessment Level: High Risk Assessment and Plan Assessment: 1. Chest pain rule out acute coronary syndrome 2. Hypertension 3. Hyperlipidemia 4. Diabetes mellitus We will admit patient to observation and monitor troponins every 43; monitor EKG; we will order 2-D echo and consult cardiology for further recommendations; continue with home medications in form of Lipitor, verapamil and lisinopril; hold home dose of glipizide 10 mg daily and monitor Accu-Cheks every before meals and at bedtime with insulin sliding scale while in the hospital; further recommendations after patient is evaluated by cardiology
--- NOTE | 2019-07-22 10:06 | P.DS ---
Providers Date of admission: 06/24/19 21:17 Expected date of discharge: 06/25/19 Attending physician: Roque Villalobos Consults: 06/24/19 21:17 Consult Physician Urgent Consulting Provider: Macarena Baeza Consult Reason/Comments: chest pain Do you want consulting provider notified?: Yes Primary care physician: [facility] Course: An 84-year-old male he was initially seen and evaluated at [facility] emergency department. He was evaluated for the chief complaint of chest pain. She was worked up there had negative troponin he had an EKG that was unremarkable. He does have significant risk factors patient had negative workup including negative troponin however given his clinical presentation and emergency doctor there started patient on heparin. A stretcher here for cardiology consultation. According to transferring physician was concerned that patient was experiencing an arrhythmia area patient denies any chest pain at this time. Patient reports that he was having some chest pain substernally while he was watching TV. He did get 2 sublingual nitroglycerin which did improve his pain. EKG was obtained showing no signs of ischemia or infarction. There are however are multiple PVCs. Patient was admitted with cardiology consultation and serial troponins. Troponins were monitored and were negative; patient was evaluated by cardiology and in view of recent negative stress test about 3-4 months ago patient was recommended echocardiogram and discharge if echocardiogram is stable; Isoptin was discontinued and patient was started on metoprolol 50 mg daily and lisinopril was increased to 20 mg daily; echocardiogram showed an EF of 55-60% with moderate LVH; patient was recommended follow-up with primary grades 1 6 tutor Patient Condition at Discharge: Fair Plan - Discharge Summary Discharge Rx Participant: No New Discharge Prescriptions: New Metoprolol Tartrate [Lopressor] 50 mg PO DAILY #30 tab Lisinopril [Zestril] 20 mg PO DAILY #30 tab Continue Atorvastatin [Lipitor] 40 mg PO QAM glipiZIDE [Glipizide Xl] 10 mg PO DAILY Latanoprost 1 drop BOTH EYES HS predniSONE [Prednisone] 5 mg PO DAILY Vit C/E/Zn/Coppr/Lutein/Zeaxan [Preservision Areds 2 Softgel] 1 cap PO BID Aspirin 81 mg PO DAILY Ipratropium-Albuterol Nebulize [Duoneb 0.5 mg-3 mg/3 ml Soln] 3 ml INHALATION RT-QID PRN neb PRN Reason: Shortness Of Breath Or Wheezing Discontinued Verapamil Sr [Isoptin Sr] 240 mg PO DAILY Lisinopril [Zestril] 10 mg PO DAILY Discharge Medication List Atorvastatin [Lipitor] 40 mg PO QAM 03/19/15 [History] Latanoprost 1 drop BOTH EYES HS 03/19/15 [History] glipiZIDE [Glipizide Xl] 10 mg PO DAILY 03/19/15 [History] predniSONE [Prednisone] 5 mg PO DAILY 03/19/15 [History] Vit C/E/Zn/Coppr/Lutein/Zeaxan [Preservision Areds 2 Softgel] 1 cap PO BID 03/17/17 [History] Aspirin 81 mg PO DAILY 03/20/17 [Rx] Ipratropium-Albuterol Nebulize [Duoneb 0.5 mg-3 mg/3 ml Soln] 3 ml INHALATION RT-QID PRN neb 03/20/17 [Rx] Lisinopril [Zestril] 20 mg PO DAILY #30 tab 06/25/19 [Rx] Metoprolol Tartrate [Lopressor] 50 mg PO DAILY #30 tab 06/25/19 [Rx] Follow up Appointment(s)/Referral(s): Mary Morocho MD [Primary Care Provider] - 1-2 days Prema Mckenna MD [STAFF PHYSICIAN] - 2 Weeks Patient Instructions/Handouts: Chest Pain (GEN) Discharge Disposition: HOME SELF-CARE
== END 2019-06-25 13:18 | disposition home or self-care (01) ==
LOC: EC 19:33 → 1SOBS 21:17
PROVIDERS: ADMIT Hospitalist; ATTEND Hospitalist
DX: R07.89 Other chest pain (principal); I49.3 Ventricular premature depolarization; Z87.891 Personal history of nicotine dependence; I48.91 Unspecified atrial fibrillation; I25.10 Atherosclerotic heart disease of native coronary artery without angina pectoris; E11.9 Type 2 diabetes mellitus without complications; J44.9 Chronic obstructive pulmonary disease, unspecified; K21.9 Gastro-esophageal reflux disease without esophagitis; I08.2 Rheumatic disorders of both aortic and tricuspid valves; K44.9 Diaphragmatic hernia without obstruction or gangrene; Z99.81 Dependence on supplemental oxygen; G89.29 Other chronic pain; M54.9 Dorsalgia, unspecified; H35.30 Unspecified macular degeneration; H40.9 Unspecified glaucoma; M19.90 Unspecified osteoarthritis, unspecified site; I25.2 Old myocardial infarction; I10 Essential (primary) hypertension; E78.5 Hyperlipidemia, unspecified; Z79.52 Long term (current) use of systemic steroids; Z79.899 Other long term (current) drug therapy; Z95.5 Presence of coronary angioplasty implant and graft; Z85.828 Personal history of other malignant neoplasm of skin; Z85.528 Personal history of other malignant neoplasm of kidney; Z90.49 Acquired absence of other specified parts of digestive tract; Z90.5 Acquired absence of kidney; Z90.79 Acquired absence of other genital organ(s); Z82.61 Family history of arthritis; Z80.0 Family history of malignant neoplasm of digestive organs
CPT/HCPCS: 99285 ×2; 93005 ×2; 96366 ×2; 96376; 96365; 36415; 93306; 80061; 84484 ×2; 85730; G0378 ×2; J1644 ×2

== ENCOUNTER 2019-09-30 20:59 | Inpatient (IN) | payer MEDICARE, BC ==
[2019-09-30] MEDS ORDERED: NALOXONE 0.4 MG/ML 1 ML VIAL IV PRN (21:29)
[2019-09-30] MEDS ORDERED: ACETAMINOPHEN TAB 325 MG TAB PO PRN (21:29)
--- NOTE | 2019-09-30 21:29 | ED ---
General Adult HPI - General Chief complaint: Urogenital Stated complaint: Urine Retention Time Seen by Provider: 09/30/19 21:00 Source: patient, EMS Limitations: no limitations - History of Present Illness Initial comments: Dictation was produced using [employer] dictation software. please excuse any grammatical, word or spelling errors. This patient was cared for during a federal and state declared state of emergency secondary to Covid 19 Chief Complaint: 84-year-old male past medical history of renal cell carcinoma sent from [facility] for UTI sepsis. History of Present Illness: Is a 4-year-old male who is transferred via EMS from [facility] for UTI sepsis. Patient has a past medical history renal cell carcinoma. Over the last 2 days he's been having difficulty urinating. Patient was coming by his at [facility] and they're concerned about bladder infection. At [facility] his rectal temperature is 11.5. He also had a leukocytosis of 25. Patient feels well at the moment. Doesn't understand why he was sent here. The ROS documented in this emergency department record has been reviewed and confirmed by me. Those systems with pertinent positive or negative responses have been documented in the HPI. All other systems are other negative and/or noncontributory. PHYSICAL EXAM: General Impression: Alert and oriented x3, not in acute distress, fully catheter in place HEENT: Normocephalic atraumatic, extra-ocular movements intact, pupils equal and reactive to light bilaterally, mucous membranes moist. Cardiovascular: Heart regular rate and rhythm Chest: Able to complete full sentences, no retractions, no tachypnea Abdomen: Bowel sounds present, abdomen soft, non-tender, non-distended, no organomegaly Musculoskeletal: Pulses present and equal in all extremities, no peripheral edema Motor: no focal deficits noted Neurological: CN II-XII grossly intact, no focal motor or sensory deficits noted Skin: Intact with no visualized rashes Psych: Normal affect and mood ED course: 84-year-old male is transferred from [facility] for UTI sepsis. Initially presented to the emergency department for urinary retention. Vital signs upon arrival are within acceptable limits. Transferred back condition was reviewed. Patient leukocytosis of 26. Hemoglobin 12.6. According to the transferring physician they were concerned that patient's symptoms require higher level of care. Patient does have history of being in the hospital being evaluated by urology. He was sent here prior to confirmation of urinary tract infection. Urinalysis was ordered from facility from recently placed [facility] catheter bag. Patient was given a dose of Zosyn at the other facility. Discussed patient case with Dr. Rapp who is willing to accept patients care. - Related Data Home Medications Medication Instructions Recorded Confirmed Atorvastatin [Lipitor] 40 mg PO QAM 03/19/15 06/24/19 Latanoprost 1 drop BOTH EYES HS 03/19/15 06/24/19 glipiZIDE [Glipizide Xl] 10 mg PO DAILY 03/19/15 06/24/19 predniSONE [Prednisone] 5 mg PO DAILY 03/19/15 06/24/19 Vit C/E/Zn/Coppr/Lutein/Zeaxan 1 cap PO BID 03/17/17 06/24/19 [Preservision Areds 2 Softgel] Previous Rx's Medication Instructions Recorded Aspirin 81 mg PO DAILY 03/20/17 Ipratropium-Albuterol Nebulize 3 ml INHALATION RT-QID PRN neb 03/20/17 [Duoneb 0.5 mg-3 mg/3 ml Soln] Lisinopril [Zestril] 20 mg PO DAILY #30 tab 06/25/19 Metoprolol Tartrate [Lopressor] 50 mg PO DAILY #30 tab 06/25/19 Allergies Allergy/AdvReac Type Severity Reaction Status Date / Time No Known Allergies Allergy Verified 09/30/19 21:07 Review of Systems ROS Statement: Those systems with pertinent positive or pertinent negative responses have been documented in the HPI. ROS Other: All systems not noted in ROS Statement are negative. Past Medical History Past Medical History: Atrial Fibrillation, Coronary Artery Disease (CAD), Cancer, COPD, Eye Disorder, GERD/Reflux, Hyperlipidemia, Hypertension, Myocardial Infarction (DE), Osteoarthritis (OA), Pneumonia, Renal Disease, Respiratory Disorder Additional Past Medical History / Comment(s): chronic and recurrent urinary tract infections, UTI with sepsis, diverticulitis, previous history of bowel perforation had a colostomy since reversed, BPH-prostatectomy, renal cancer (lt), skin cancer with removal, tremors(non parkinsons), bilateral glaucoma, R eye macular degeneration, chronic back pain, bronchitis, uses 02 2 liters n/c prn, hiatal hernia. Last Myocardial Infarction Date:: 1999 History of Any Multi-Drug Resistant Organisms: None Reported Past Surgical History: Appendectomy, Bowel Resection, Heart Catheterization With Stent, Hernia Repair, Prostate Surgery Additional Past Surgical History / Comment(s): nephrectomy(lt), lung bx-neg, prostatectomy, 2 cardiac stents, basal cell skin ca removed, cheryl cataracts, L eye steel shard removed, bowel sx 8 inches removed had colostomy since reversed- past med hx stated still has metal clip left in place, L inguinal hernia repair, skin grafts rt arm-pt fell into hot tar on construction site. Past Anesthesia/Blood Transfusion Reactions: No Reported Reaction Date of Last Stent Placement:: 1999 Past Psychological History: No Psychological Hx Reported Smoking Status: Former smoker Past Alcohol Use History: Occasional Past Drug Use History: None Reported - Past Family History Father Family Medical History: Osteoarthritis (OA), Pneumonia Additional Family Medical History / Comment(s): from pne after hip sx Mother Family Medical History: Cancer Additional Family Medical History / Comment(s): throat cancer General Exam Limitations: no limitations Course Vital Signs 09/30/19 20:59 Temperature 98.3 F Pulse Rate 92 Respiratory 16 Rate Blood Pressure 129/66 O2 Sat by Pulse 93 L Oximetry Disposition Clinical Impression: Sepsis Disposition: ADMITTED IP TO THIS HOSP Condition: Fair Referrals: Mary Morocho MD [Primary Care Provider] - 1-2 days Decision Time: 21:29
[2019-09-30 21:55] LABS: Appearance,Urine Cloudy (Clear); Bilirubin,Urine Negative (Negative); Blood,Urine Moderate (Negative); Color,Urine Yellow; Glucose,Urine (UA) Negative (Negative); Ketones,Urine Negative (Negative); Leukocyte Esterase,Urine Large (Negative); Nitrite,Urine Negative (Negative); Protein,Urine 1+ (Negative); RBC,Urine >182 /hpf (0-5); Specific Gravity,Urine 1.011 (1.001-1.035); Squamous Epithelial Cell,Urine <1 /hpf (0-4); Urobilinogen,Urine <2.0 mg/dL (<2.0); WBC,Urine >182 /hpf (0-5)
[2019-09-30] MEDS: SODIUM CHLORIDE 0.9% 1,000 ML IV SCH (22:51)
[2019-09-30] MEDS ORDERED: ALPRAZolam 0.5 MG TAB PO PRN (23:20)
[2019-10-01 07:39] LABS: Anisocytosis Slight; Basophils % (A) 0 %; Eosinophils # (A) 0.1 k/uL (0-0.7); Eosinophils % (A) 0 %; HCT 39.3 % (39.0-53.0); HGB 11.8 gm/dL (13.0-17.5); Hypochromasia Marked; Lymphocytes # (A) 1.1 k/uL (1.0-4.8); Lymphocytes % (A) 6 %; MCH 22.5 pg (25.0-35.0); MCHC 30.2 g/dL (31.0-37.0); MCV 74.7 fL (80.0-100.0); Mean Platelet Volume 6.8; Microcytosis Slight; Monocytes # (A) 0.8 k/uL (0-1.0); Monocytes % (A) 4 %; Neutrophils # (A) 16.7 k/uL (1.3-7.7); Neutrophils % (A) 89 %; Platelet Count 205 k/uL (150-450); RBC 5.26 m/uL (4.30-5.90); WBC 18.8 k/uL (3.8-10.6)
[2019-10-01 07:56] LABS: Albumin 3.1 g/dL (3.5-5.0); Calcium 8.2 mg/dL (8.4-10.2); Potassium 4.2 mmol/L (3.5-5.1); Total Bilirubin 0.6 mg/dL (0.2-1.3); Total Protein 5.8 g/dL (6.3-8.2)
[2019-10-01] MEDS: VERAPAMIL SR 240 MG TABLET.ER PO SCH (08:57)
[2019-10-01] MEDS: ATORVASTATIN 20 MG TAB PO SCH (08:57)
[2019-10-01] MEDS: predniSONE 5 MG TAB PO SCH (08:57)
[2019-10-01] MEDS: glipiZIDE 5 MG TAB PO SCH ×2 (08:57→21:12)
[2019-10-01] MEDS: LISINOPRIL 20 MG TAB PO SCH (08:57)
[2019-10-01] MEDS ORDERED: IPRATROPIUM-ALBUTEROL 3 ML NEB INHALATION PRN (10:07)
[2019-10-01] MEDS: IPRATROPIUM-ALBUTEROL 3 ML NEB INHALATION SCH ×2 (11:11→19:26)
--- NOTE | 2019-10-01 15:26 | CONS ---
CONSULTATION PULMONARY/CRITICAL CARE CONSULTATION: DATE OF SERVICE: 10/01/2019. REASON FOR CONSULTATION: Urinary tract infection/urosepsis. This is an 84-year-old male who sees Dr. Morocho as a primary. He apparently was at [facility] and was transferred down to [facility]. The patient apparently was thought to require care at a higher level than [facility]. The patient does have a previous history of renal cell carcinoma. Apparently for the last 2 or 3 days prior to admission, he was admitting to having difficulty urinating. They were concerned about a bladder infection. He had fever. He also had a leukocytosis. For that reason, he was sent down to [facility] to be evaluated. Currently, the patient seems to be doing relatively well. He is on room air. He is not receiving any IV fluids. He has some tenderness in the suprapubic area. He denies any shortness of breath. There is no chest pain or chest discomfort. There is no fever or chills. He is not coughing or producing any phlegm. There is no nausea, vomiting or diarrhea. HOME MEDICATIONS: Reviewed. He is on Lipitor, eye drops, glipizide, prednisone, PreserVision, aspirin, DuoNeb, lisinopril, and metoprolol. ALLERGIES: Denied. MEDICAL HISTORY: Includes atrial fibrillation, CAD, cancer, i.e. renal carcinoma, COPD, GERD, hyperlipidemia, hypertension, myocardial infarction, DJD, pneumonia, chronic and recurrent urinary tract infections with sepsis, diverticular disease, previous bowel perforation with colostomy and reversal, BPH, skin cancer, benign essential tremors, glaucoma, macular degeneration, chronic back pain, and hiatal hernia. SURGICAL HISTORY: Includes previous appendectomy, bowel resection with colostomy and colostomy reversal, heart catheterization with stent, hernia repair, prostatectomy, left nephrectomy, a negative lung biopsy, surgery for skin cancer, bilateral cataract surgery, among other surgical procedures. SOCIAL HISTORY: Positive for occasional alcohol use. No illicit drug use, and previous heavy tobacco use. FAMILY HISTORY: Positive for a father with osteoarthritis and pneumonia and mother who had throat cancer. REVIEW OF SYSTEMS: CONSTITUTIONAL: Minimal weakness, pretty much resolved. NEUROLOGIC: Negative. HEENT: Negative. CARDIOVASCULAR: Negative. PULMONARY: Negative. GI: Negative. : Difficulty urinating, urinary frequency. RHEUMATOLOGIC: Negative. IMMUNOLOGIC: Negative. ENDOCRINOLOGIC: Negative. DERMATOLOGIC: Negative. Current vital signs are reviewed. His temperature is 98.8, heart rate 102, respiratory rate 16, blood pressure 175/79 mean 111, room air saturation is 93%. T-max is 98.8. Appears in no acute distress. Lying flat in bed. No distress whatsoever. No conversational dyspnea or use of accessory muscles or audible wheezing. HEENT: Examination is grossly unremarkable. NECK: Supple. Full range of motion. No adenopathy. Neck veins are flat. CARDIOVASCULAR: Examination reveals regular rhythm and rate. Heart rate right around 100. There is some irregularity to his rhythm. Not clear as if he is in atrial fibrillation. S1, S2 normal. No distinct murmur. LUNGS: Reveal mostly clear breath sounds. Breath sounds are diminished throughout. A few scattered mild rhonchi. No wheezes or crackles. ABDOMEN: Soft. There is some mild suprapubic tenderness on palpation. EXTREMITIES: Intact. No edema. SKIN: Without rash. NEUROLOGIC: Examination is brief but nonfocal. LAB DATA: Includes a white count of 18.8, hemoglobin 11.8, hematocrit 39.3, platelet count 305,000. Sodium, potassium, chloride, CO2 all normal. Anion gap normal. BUN and creatinine were normal. Urine is consistent with a urinary tract infection. No other data is available at this time. Medications are reviewed. He is on Tylenol, Xanax, Lipitor, Rocephin, glipizide, eye drops, lisinopril, Narcan, prednisone, IV fluids at 20 mL an hour, saline, and verapamil. ASSESSMENT: 1. Probable urinary tract infection as the patient has a prior history of multiple and recurrent UTIs. 2. History of atrial fibrillation. 3. History of coronary artery disease. 4. History of renal carcinoma, status post left nephrectomy. 5. Chronic obstructive pulmonary disease. 6. Macular degeneration and cataracts. 7. Gastroesophageal reflux disease. 8. Hyperlipidemia. 9. Hypertension. 10.History of myocardial infarction. 11.Degenerative joint disease. 12.Chronic and recurrent urinary tract infections. 13.Diverticulitis. 14.Previous history of bowel perforation with colostomy and subsequent reversal. 15.Skin cancer, status post multiple excisions. 16.Benign essential tremor. 17.History of chronic back pain. 18.History of hiatal hernia. PLAN: The patient is currently on some fluids and Rocephin. He seemed relatively stable. Additional recommendations and suggestions are forthcoming. Will continue to follow. Will await culture results. We may need to tailor the antibiotics. Additional recommendations and suggestions are forthcoming. His respiratory status is currently stable. I will order some nebulized treatments. BRIAN / RUFINAN: [id number] /
--- NOTE | 2019-10-01 17:47 | HP ---
HISTORY AND PHYSICAL 84-year-old white male admitted, transferred down from [facility]. He has a history of renal cell carcinoma. He has had difficulty urinating and found to have a bladder infection, fever, leukocytosis. He is admitted for UTI with sepsis. He does not feel good. He denies any chest pain or shortness of breath. No nausea, vomiting, diarrhea. He is on glipizide, prednisone, PreserVision, aspirin, DuoNeb, lisinopril, metoprolol, Lipitor. ALLERGIES: Allergies are denied. PAST MEDICAL HISTORY: He has atrial fibrillation, CAD, cancer, renal cell carcinoma, COPD, GERD, dyslipidemia, hypertension, myocardial infarction, DJD, as mentioned, sepsis with UTI. States he has never had a bad one like this before, benign tremors, BPH, skin cancer, macular degeneration, chronic back pain, hiatal hernia. SURGERIES: Appendectomy, bowel resection, colostomy, colostomy reversal, heart catheterization with stent, hernia repair, prostatectomy, left nephrectomy, negative lung biopsy, surgery for skin cancer, bilateral cataract surgery. SOCIAL HISTORY: Positive for alcohol. No drugs. Previous heavy tobacco. FAMILY HISTORY: Father osteoarthritis, pneumonia. REVIEW OF SYMPTOMS: 14-point review of systems negative except for mentioned in HPI. PHYSICAL EXAMINATION: Vital signs reviewed. Temperature 98, heart rate 102, respiratory 16-20, blood pressure 175/79, mean 111 with room air saturation 93%. T-max 98. His conversational dyspnea is negative. He is breathing fine. Head normocephalic atraumatic. Looks her stated age. NECK: Supple. No mass. CARDIAC: Regular rate and rhythm. LUNGS mostly clear. No rales, rhonchi, wheeze. ABDOMEN is soft, nontender. Possibly some suprapubic tenderness. SKIN: Just wrinkling from his age. No rash. NEUROLOGIC: Cranial nerves are intact. PSYCH: Fair mood and affect. Given appropriate answers. LABORATORY DATA: White count 18.8, hemoglobin 11.8, platelets 305. Sodium and potassium normal, BUN, creatinine normal. Urine shows multiple high white cells well over 100, 160 something. ASSESSMENT: 1. Sepsis secondary to urinary tract infection. 2. Atrial fibrillation. 3. Coronary artery disease. 4. Renal cell carcinoma. 5. Chronic obstructive pulmonary disease. 6. Macular degeneration. 7. Gastroesophageal reflux disease. 8. Dyslipidemia. 9. Hypertension. 10.Degenerative disc disease. 11.Diverticulitis history. 12.Recurrent urine infection. 13.Benign essential tremor. 14.Hiatal hernia. I started him on Rocephin, fluids last night and we are waiting for urine cultures to finalize. Infectious Disease consulted. Please see further orders. MMODL / IJN: [id number] /
[2019-10-01] MEDS: LATANOPROST 0.005% OPHTH DROPS 2.5 ML BTL BOTH EYES SCH (21:50)
[2019-10-01] MEDS: SODIUM CHLORIDE 0.9% 1,000 ML IV SCH (22:55)
--- NOTE | 2019-10-02 00:43 | CONS ---
CONSULTATION DATE OF CONSULTATION: 10/01/2019 REASON FOR CONSULTATION: Urinary tract infection and sepsis. HISTORY OF PRESENT ILLNESS: The patient is an 84-year-old male with a past medical history significant for renal cell carcinoma. The patient presented to [facility] for evaluation of difficulty urination, some retention along with fever. The patient was evaluated at [facility] with concerns. The patient did have a temperature of 101.5 degrees Fahrenheit. He did have elevated white count 5000 and did have a positive UA with concern for a urinary tract infection. Patient has been transferred to [facility] for further management. On arrival at this facility, the patient has been afebrile. He did have a white count of 18.8. The patient did have a positive UA with large leukocyte esterase, more than 182 WBCs. The patient was admitted to the hospital. He was started on Rocephin. Infectious Disease was consulted for further recommendations regarding antibiotic therapy. Cultures are currently pending. REVIEW OF SYSTEMS: Positive points have been mentioned in HPI. Rest of the systems are negative. PAST MEDICAL HISTORY: Renal cell carcinoma, atrial fibrillation, coronary artery disease, hypertension, hyperlipidemia, UT, osteoarthritis, pneumonia and history of recurrent UTIs. PAST SURGICAL HISTORY: Appendectomy, bowel resection, PTCA with stent, hernia repair and prostate surgery, left nephrectomy. SOCIAL HISTORY: Remote history of smoking. Occasionally drinks. No drug use. FAMILY HISTORY: Father with history of arthritis and pneumonia. Mother history of cancer. ALLERGIES: No known drug allergies. MEDICATIONS: Medications include the patient is currently on Tylenol, DuoNeb, Xanax, Lipitor, Rocephin 1 gram daily. He is on Glucotrol, Restoril, Narcan, prednisone, and Verapamil. PHYSICAL EXAMINATION: Blood pressure is 137/67, pulse 100. Temperature 98, he is 97% on 2 L nasal cannula. General description is an elderly male lying in bed in no distress. No tachypnea or accessory muscles of respiration use. HEENT: Examination shows slight pallor. No scleral icterus. Oral mucosa membranes dry. No pharyngeal erythema or thrush. Neck: Trachea central. No thyromegaly. LUNGS: Unlabored breathing. Decreased intensity in the breath sounds. No wheeze. HEART: S1, S2. Regular rate and rhythm. ABDOMEN: Soft, no tenderness. No guarding. No rigidity. EXTREMITIES: No edema of the feet. Skin examination: No rash or mass palpable. NEUROLOGICAL: Patient is awake, alert, oriented times three. Mood and affect normal. LABS: Hemoglobin 11.8, white count 15.8. BUN of 20, creatinine 1.24. Electrolytes have been normal. Liver enzymes are normal. Urine is positive. DIAGNOSTIC IMPRESSION AND PLAN: Patient admitted to the hospital with a fever, significantly positive UA in this patient who did have initial white count with difficulty urination. Likely the source of his fever and urinary tract infection and likely from enteric gram-negative pathogen. PLAN: 1. Rocephin 1 gram IV piggyback daily. 2. Gentle IV fluid. 3. We will follow on clinical condition and culture to further adjust medication if needed. Thank you for this consultation. We will follow this patient along with you. BRIAN / RUFINAN: [id number] /
[2019-10-02 06:37] LABS: Anisocytosis Slight; Basophils % (A) 0 %; Eosinophils # (A) 0.2 k/uL (0-0.7); Eosinophils % (A) 1 %; HCT 36.8 % (39.0-53.0); HGB 10.9 gm/dL (13.0-17.5); Hypochromasia Moderate; Lymphocytes # (A) 0.8 k/uL (1.0-4.8); Lymphocytes % (A) 7 %; MCHC 29.6 g/dL (31.0-37.0); MCV 74.3 fL (80.0-100.0); Microcytosis Slight; Monocytes # (A) 0.5 k/uL (0-1.0); Monocytes % (A) 5 %; Neutrophils # (A) 9.9 k/uL (1.3-7.7); Neutrophils % (A) 85 %; Platelet Count 177 k/uL (150-450); RBC 4.95 m/uL (4.30-5.90); RDW 16.4 % (11.5-15.5); WBC 11.6 k/uL (3.8-10.6)
[2019-10-02 06:53] LABS: Albumin 2.9 g/dL (3.5-5.0); Potassium 4.1 mmol/L (3.5-5.1); Total Bilirubin 0.4 mg/dL (0.2-1.3); Total Protein 5.5 g/dL (6.3-8.2)
[2019-10-02] MEDS: IPRATROPIUM-ALBUTEROL 3 ML NEB INHALATION SCH ×3 (07:06→19:34)
[2019-10-02] MEDS: VERAPAMIL SR 240 MG TABLET.ER PO SCH (08:50)
[2019-10-02] MEDS: ATORVASTATIN 20 MG TAB PO SCH (08:50)
[2019-10-02] MEDS: glipiZIDE 5 MG TAB PO SCH ×2 (08:50→20:25)
[2019-10-02] MEDS: LISINOPRIL 20 MG TAB PO SCH (08:50)
[2019-10-02] MEDS: predniSONE 5 MG TAB PO SCH (08:50)
--- NOTE | 2019-10-02 11:39 | PN ---
PROGRESS NOTE PULMONARY/CRITICAL CARE PROGRESS NOTE: 10/02/2019. This is an 84-year-old gentleman who typically sees Dr. Morocho as a primary. He apparently was at [facility] for suspected urinary tract infection/urosepsis and was transferred down to [facility]. The hospital [place] thought he required a higher level of care. The patient does have a previous history of renal cell carcinoma. Anyway, he is doing relatively well. He denies any difficulty urinating. He is currently on antibiotics. He is not having any fever, chills, chest pain, chest discomfort, shortness of breath, etc. PHYSICAL EXAMINATION: VITAL SIGNS: Current vital signs are reviewed. Temperature 98.5, heart rate 82, respiratory rate 20, blood pressure 130/61 mean 84, 2 L saturation 96%. Appears in no acute distress. HEENT: Examination is unremarkable. He is on nasal O2 at 2 L. He does have a history of chronic lung disease. NECK: Supple. Full range of motion. CARDIOVASCULAR: Examination reveals regular rhythm rate. S1, S2 normal. LUNGS: Clear. Breath sounds equal. ABDOMEN: Soft. EXTREMITIES are intact. No edema. SKIN: Without rash. NEUROLOGIC: Examination is brief but nonfocal. White count 11.6, hemoglobin 10.9, hematocrit 36.8, platelet count 177,000. Sodium and potassium normal. Chloride is 109. The rest of the comprehensive metabolic profile is normal. Currently, his urine cultures are pending. His urinalysis suggested urinary tract infection. He is being seen by Infectious Disease. Microbiology is inconclusive at this point. ASSESSMENT: 1. Probable urinary tract infection as the patient has prior history of multiple urinary tract infections. 2. History of atrial fibrillation. 3. History of coronary artery disease. 4. History of renal carcinoma, status post left nephrectomy. 5. History of chronic obstructive pulmonary disease. 6. Macular degeneration and cataracts. 7. Gastroesophageal reflux disease. 8. Hyperlipidemia. 9. Hypertension. 10.History of myocardial infarction. 11.Degenerative joint disease. 12.Chronic and recurrent urinary tract infections. 13.Diverticulitis. 14.Multiple other medical problems and comorbidities. PLAN: The patient is doing well. He remains on Rocephin and fluids. We will continue to follow. Dr. Mittal will take over the service tomorrow. The patient does see Dr. Morocho as a primary. Additional recommendations and suggestions are forthcoming. MMODL / IJN: [id number] /
[2019-10-02] MEDS: TAMSULOSIN 0.4 MG CAP.ER.24H PO SCH (14:19)
[2019-10-02] MEDS: LATANOPROST 0.005% OPHTH DROPS 2.5 ML BTL BOTH EYES SCH (20:25)
[2019-10-02] MEDS: SODIUM CHLORIDE 0.9% 1,000 ML IV SCH (23:15)
--- NOTE | 2019-10-03 00:12 | PN ---
PROGRESS NOTE An 84-year-old white male came in for urosepsis. He has severe tremor when he moves his arms over his head. He has a history of previous history of renal cell carcinoma. CARDIOVASCULAR: S1, S2. LUNGS: Clear. GI: Soft. HEMATOLOGY: Negative Homans. ASSESSMENT: 1. Urinary tract infection with sepsis. 2. Atrial fibrillation. 3. Coronary artery disease. 4. Renal cell carcinoma. 5. Macular degeneration. 6. Gastroesophageal reflux disease. 7. Dyslipidemia. 8. Hypertension. 9. Degenerative joint disease. 10.Diverticulitis. Continue with Rocephin. Follow up in next 24 to 48 hours for possible discharge. Once urine cultures are finalized and infection was treated by Dr. Ramesh for discharge antibiotics. MMODL / IJN: [id number] /
--- NOTE | 2019-10-03 03:39 | PN ---
PROGRESS NOTE DATE OF SERVICE: 10/02/2019 REASON FOR FOLLOWUP: Urinary tract infection. INTERVAL HISTORY: The patient is currently afebrile. Patient has been breathing comfortably. The patient denies having any chest pain or shortness of breath or cough. No nausea, no vomiting. No abdominal pain. No diarrhea. PHYSICAL EXAMINATION: Blood pressure 148/70 with a pulse of 92, temperature 98.2. He is 92% on room air. General description is an elderly male lying in bed in no distress. RESPIRATORY SYSTEM: Unlabored breathing, clear to auscultation anteriorly. HEART: S1, S2. Regular rate and rhythm. ABDOMEN: Soft, no tenderness. LABS: Hemoglobin is 10.9, white count 11.6, BUN of 20, creatinine 1.17. DIAGNOSTIC IMPRESSION AND PLAN: Patient with urinary tract infection clinically responded to Rocephin. White count has almost normalized. Continue Rocephin. Will finish therapy with oral Ceftin and monitor his clinical course closely. MMODL / IJN: [id number] /
[2019-10-03 04:58] VITALS: BP 141/73; RESP 24; TEMP 98.1
[2019-10-03] MEDS: IPRATROPIUM-ALBUTEROL 3 ML NEB INHALATION SCH ×2 (07:36→12:38)
--- NOTE | 2019-10-03 08:42 | P.GSCN ---
History of Present Illness Consult date: 10/02/19 Reason for Consult: UTI, Urinary Retention Requesting physician: Wilfredo Rapp History of present illness: The patient is an 84-year-old white male well known to Dr. Deluca. He underwent a right radical nephrectomy at [facility] for renal cell carcinoma. Dr. Deluca performed a suprapubic prostatectomy on him in May 2015. He is a vague historian. He has recently experienced difficulty voiding and weakness. He and his both attempted to catheterize but were unsuccessful. He presented to the emergency room at [facility], where he was found to be in urinary retention and a [facility] catheter was placed. I have reviewed the transfer records, and unfortunately the volume of urine obtained upon initial catheter placement was not recorded. Urinalysis was suggestive of infection, so a urine culture was sent and he is being treated with antibiotics. He is feeling better. Past Medical History Past Medical History: Atrial Fibrillation, Coronary Artery Disease (CAD), Cancer, COPD, Eye Disorder, GERD/Reflux, Hyperlipidemia, Hypertension, Myocardial Infarction (OR), Osteoarthritis (OA), Pneumonia, Renal Disease, Respiratory Disorder Additional Past Medical History / Comment(s): chronic and recurrent urinary t ract infections, UTI with sepsis, diverticulitis, previous history of bowel perforation had a colostomy since reversed, BPH-prostatectomy, renal cancer (lt), skin cancer with removal, tremors(non parkinsons), bilateral glaucoma, R eye macular degeneration, chronic back pain, bronchitis, uses 02 2 liters n/c prn, hiatal hernia. pulmonary fibrosis. Last Myocardial Infarction Date:: 1999 History of Any Multi-Drug Resistant Organisms: None Reported Past Surgical History: Appendectomy, Bowel Resection, Heart Catheterization With Stent, Hernia Repair, Prostate Surgery Additional Past Surgical History / Comment(s): nephrectomy(lt), lung bx-neg, prostatectomy, 2 cardiac stents, basal cell skin ca removed, cheryl cataracts, L eye steel shard removed, bowel sx 8 inches removed had colostomy since reversed- past med hx stated still has metal clip left in place, L inguinal hernia repair, skin grafts rt arm-pt fell into hot tar on construction site., nephrectomy Past Anesthesia/Blood Transfusion Reactions: No Reported Reaction Date of Last Stent Placement:: 1999 Past Psychological History: No Psychological Hx Reported Additional Psychological History / Comment(s): Pt resides with his spouse and th ey are raising their 10 yr old great grandson who has autism and blindness. Pt uses no assistive device. He drives. Smoking Status: Former smoker Past Alcohol Use History: Occasional Additional Past Alcohol Use History / Comment(s): smoked x 30 years, 1ppd, quit 1987 Past Drug Use History: None Reported - Past Family History Father Family Medical History: Osteoarthritis (OA), Pneumonia Additional Family Medical History / Comment(s): from pne after hip sx Mother Family Medical History: Cancer Additional Family Medical History / Comment(s): throat cancer Medications and Allergies Home Medications Medication Instructions Recorded Confirmed Type Atorvastatin [Lipitor] 20 mg PO DAILY 03/19/15 09/30/19 History Latanoprost 1 drop BOTH EYES HS 03/19/15 09/30/19 History glipiZIDE [Glipizide Xl] 10 mg PO DAILY 03/19/15 09/30/19 History predniSONE [Prednisone] 5 mg PO DAILY 03/19/15 09/30/19 History Lisinopril [Zestril] 20 mg PO DAILY #30 tab 06/25/19 09/30/19 Rx ALPRAZolam [Xanax] 0.25 - 0.5 mg PO DAILY PRN 09/30/19 09/30/19 History Verapamil HCl [Verapamil ER] 240 mg PO DAILY 09/30/19 09/30/19 History Allergies Allergy/AdvReac Type Severity Reaction Status Date / Time No Known Allergies Allergy Verified 09/30/19 21:07 Surgical - Exam Vital Signs Temp Pulse Resp BP Pulse Ox 98.3 F 92 16 129/66 93 L 09/30/19 20:59 09/30/19 20:59 09/30/19 20:59 09/30/19 20:59 09/30/19 20:59 - General well developed, well nourished, no distress - Respiratory normal respiratory effort - Abdomen Abdomen: soft, non tender, no guarding, no rigid, no rebound - Genitourinary normal penis with no external lesions, testicles non-tender - Rectum Rectum: normal sphincter tone, no masses, other (Prostate mildly enlarged and smooth) - Psychiatric oriented to time, oriented to person, oriented to place, speech is normal, memory intact Results - Labs 10/02/19 05:53 04/19/20 05:53 Abnormal Lab Results - Last 24 Hours (Table) 10/02/19 10/02/19 Range/Units 05:53 05:53 WBC 11.6 H (3.8-10.6) k/uL Hgb 10.9 L (13.0-17.5) gm/dL Hct 36.8 L (39.0-53.0) % MCV 74.3 L (80.0-100.0) fL MCH 22.0 L (25.0-35.0) pg MCHC 29.6 L (31.0-37.0) g/dL RDW 16.4 H (11.5-15.5) % Neutrophils # 9.9 H (1.3-7.7) k/uL Lymphocytes # 0.8 L (1.0-4.8) k/uL Chloride 109 H (98-107) mmol/L Calcium 8.0 L (8.4-10.2) mg/dL AST 16 L (17-59) U/L Total Protein 5.5 L (6.3-8.2) g/dL Albumin 2.9 L (3.5-5.0) g/dL Microbiology - Last 24 Hours (Table) 09/30/19 21:36 Urine Culture - Final Urine,Clean Catch Diabetes panel 10/02/19 Range/Units 05:53 Sodium 140 (137-145) mmol/L Potassium 4.1 (3.5-5.1) mmol/L Chloride 109 H (98-107) mmol/L Carbon Dioxide 26 (22-30) mmol/L BUN 20 (9-20) mg/dL Creatinine 1.17 (0.66-1.25) mg/dL Glucose 97 (74-99) mg/dL Calcium 8.0 L (8.4-10.2) mg/dL AST 16 L (17-59) U/L ALT 9 (4-49) U/L Alkaline Phosphatase 90 (38-126) U/L Total Protein 5.5 L (6.3-8.2) g/dL Albumin 2.9 L (3.5-5.0) g/dL Calcium panel 10/02/19 Range/Units 05:53 Calcium 8.0 L (8.4-10.2) mg/dL Albumin 2.9 L (3.5-5.0) g/dL Pituitary panel 10/02/19 Range/Units 05:53 Sodium 140 (137-145) mmol/L Potassium 4.1 (3.5-5.1) mmol/L Chloride 109 H (98-107) mmol/L Carbon Dioxide 26 (22-30) mmol/L BUN 20 (9-20) mg/dL Creatinine 1.17 (0.66-1.25) mg/dL Glucose 97 (74-99) mg/dL Calcium 8.0 L (8.4-10.2) mg/dL Adrenal panel 10/02/19 Range/Units 05:53 Sodium 140 (137-145) mmol/L Potassium 4.1 (3.5-5.1) mmol/L Chloride 109 H (98-107) mmol/L Carbon Dioxide 26 (22-30) mmol/L BUN 20 (9-20) mg/dL Creatinine 1.17 (0.66-1.25) mg/dL Glucose 97 (74-99) mg/dL Calcium 8.0 L (8.4-10.2) mg/dL Total Bilirubin 0.4 (0.2-1.3) mg/dL AST 16 L (17-59) U/L ALT 9 (4-49) U/L Alkaline Phosphatase 90 (38-126) U/L Total Protein 5.5 L (6.3-8.2) g/dL Albumin 2.9 L (3.5-5.0) g/dL Assessment and Plan (1) Urinary retention Current Visit: Yes Status: Acute Code(s): R33.9 - RETENTION OF URINE, UNSPECIFIED SNOMED Code(s): 743838689 (2) UTI (urinary tract infection) Current Visit: No Status: Acute Code(s): N39.0 - URINARY TRACT INFECTION, SITE NOT SPECIFIED SNOMED Code(s): 76633544 Plan: The patient currently has an indwelling [facility] catheter. I have prescribed tamsulosin. It would be reasonable to remove the catheter for a voiding trial. Bladder scan should be utilized to check postvoid residuals, as [facility] catheter replacement may be required if the patient is unable to void or empties his bladder incompletely. The urine culture was negative, but this may be a false- negative result and treatment with a broad-spectrum antibiotic may be advisable. Time with Patient: Greater than 30
[2019-10-03] MEDS: VERAPAMIL SR 240 MG TABLET.ER PO SCH (09:04)
[2019-10-03] MEDS: LISINOPRIL 20 MG TAB PO SCH (09:04)
[2019-10-03] MEDS: ATORVASTATIN 20 MG TAB PO SCH (09:04)
[2019-10-03] MEDS: TAMSULOSIN 0.4 MG CAP.ER.24H PO SCH (09:04)
[2019-10-03] MEDS: predniSONE 5 MG TAB PO SCH (09:04)
[2019-10-03] MEDS: glipiZIDE 5 MG TAB PO SCH (09:04)
--- NOTE | 2019-10-03 11:34 | P.PN ---
Subjective Progress Note Date: 10/03/19 Principal diagnosis: This is an 84-year-old gentleman who typically follows with Dr. Morocho on an outpatient basis as his primary care physician. He presented to [facility] for suspected urinary tract infection/urosepsis and was subsequently transferred to [facility] for further treatment and evaluation. He does have a previous history of renal cell carcinoma and was having some difficulty urinating 2-3 days prior to his admission. The patient reports that he was having fever, but denies any complaints of shortness of breath, nausea, vomiting, diarrhea, cough or pain. On his initial exam he was having some suprapubic tenderness. His past medical history is significant for atrial fibrillation, coronary artery disease, renal cell carcinoma, COPD, GERD, hypertension, hyperlipidemia, myocardial infarction, DJD, pneumonia, chronic and recurrent urinary tract infections with sepsis, diverticulosis disease, previous bowel perforation with colostomy and reversal, BPH, skin cancer, benign essential tremors, glaucoma, macular degeneration, chronic back pain and hiatal hernia. His initial lab results showed a WBC count 18.8, hemoglobin 11.8, platelets 205, BUN 20, creatinine 1.24, and his urinalysis showed large leukocyte Estrace and urine WBC count greater than 182. He was afebrile in the emergency department. The patient was seen in follow-up today 10/03/2019 on the fifth medical surgical unit. The patient is resting comfortably in bed and he is in no acute distress. He is alert and oriented 3. Vital signs show that he has been afebrile the last 24 hours and his oxygen saturations are 94% on 2 L nasal cannula. The Duke catheter remains in place for urinary retention and he was seen in consultation by Dr. Cross from urology. He was also started on tamsulosin by urology. He did have a urine culture sent which showed no growth after 18 hours and the patient remains on Rocephin for empiric antibiotic coverage. There were no new lab results drawn today. Objective - Vital Signs Vital signs: Vital Signs Temp 98.1 F 10/03/19 04:55 Pulse 104 H 10/03/19 07:37 Resp 24 10/03/19 04:55 BP 141/73 10/03/19 04:55 Pulse Ox 94 L 10/03/19 04:55 Intake & Output 10/02/19 10/03/19 10/03/19 18:59 06:59 18:59 Intake Total 480 820 Output Total 2100 750 Balance -1620 70 Intake: Intake, IV Titration 230 Amount Sodium Chloride 0.9% 1, 180 000 ml @ 20 mls/hr IV . Q24H [facility]ALIN Rx#:[id number] cefTRIAXone 1 gm In 50 Sodium Chloride 0.9% 50 ml @ 100 mls/hr IVPB Q12HR [facility]ALIN Rx#:[id number] Oral 480 590 Output: Urine 2100 750 Straight 1300 Uretheral (Duke) 750 Other: Voiding Method Indwelling Catheter Indwelling Catheter Indwelling Catheter # Voids 2 # Bowel Movements 1 - Exam This is an 84-year-old pleasant gentleman who is resting comfortably in bed on the fifth floor medical surgical unit. He is in no acute distress. Oxygen saturation are 94% on room air. He has a Duke catheter in place for urinary retention. - Constitutional General appearance: Present: cooperative, no acute distress, obese - EENT Eyes: Present: PERRLA. Absent: scleral icterus ENT: Present: hearing grossly normal, normal oropharynx - Neck Details: Neck is supple. Neck: Absent: lymphadenopathy, stridor - Respiratory Details: Lung sounds are essentially clear throughout. Respirations are symmetrical and nonlabored. - Cardiovascular Details: Regular rhythm and rate. S1 and S2 present, negative for S3, gallop or murmur. - Gastrointestinal Gastrointestinal Comment(s): Abdomen is soft, nontender and nondistended. Active bowel sounds present all 4 abdominal quadrants. No guarding or rigidity. - Genitourinary Genitourinary Comment(s): Duke catheter for urinary retention. - Integumentary Integumentary Comment(s): Skin is warm and dry. No rash. - Neurologic Neurologic: Present: CNII-XII intact - Musculoskeletal Musculoskeletal: Present: gait normal, generalized weakness, strength equal bilaterally - Psychiatric Psychiatric: Present: A&O x's 3, appropriate affect, intact judgment & insight - Allied health notes Allied health notes reviewed: nursing - Labs CBC & Chem 7: 10/02/19 05:53 10/02/19 05:53 Labs: Microbiology - Last 24 Hours (Table) 09/30/19 21:36 Urine Culture - Final Urine,Clean Catch Assessment and Plan Assessment: 1. Probable urinary tract infection as the patient has a prior history of multiple urinary tract infections. 2. History of atrial fibrillation. 3. History of coronary artery disease. 4. History of renal cell carcinoma, status post left nephrectomy. 5. History of chronic obstructive pulmonary disease. 6. Macular degeneration and cataracts. 7. Gastroesophageal reflux disease. 8. Hyperlipidemia. 9. Hypertension. 10. History of myocardial infarction. 11. Degenerative joint disease. 12. Chronic and recurrent urinary tract infections. 13. Diverticulitis. 14. Multiple other medical problems and comorbidities. Plan: 1. The patient was seen and examined at his bedside with Dr. Mittal. 2. Duke catheter and urine retention management per urology recommendations. 3. Wean oxygen as tolerated to keep oxygen saturations equal to or greater than 92%. 4. Continue Rocephin, and culture results negative after 18 hours. 5. More recommendations to follow based on patient's clinical course. Time with Patient: Less than 30
[2019-10-03 12:39] VITALS: PULSE 88
--- NOTE | 2019-10-03 15:07 | PN ---
PROGRESS NOTE DATE OF SERVICE: 10/03/2019 REASON FOR FOLLOWUP: Urinary tract infection. INTERVAL HISTORY: The patient is currently afebrile, patient is breathing comfortably. Overall feeling better, denies having any chest pain or cough. No abdominal pain, no diarrhea. PHYSICAL EXAMINATION: Blood pressure 141/73 with a pulse of 88, temperature 98.1, he is 94% on 2 L. General description is an elderly male, lying in bed in no distress. RESPIRATORY SYSTEM: Unlabored breathing, clear to auscultation anteriorly. HEART: S1, S2. Regular rate and rhythm. ABDOMEN: Soft, no tenderness. LABS: Hemoglobin is 10.8, white count of 11.6, creatinine 1.17. Urine is negative. DIAGNOSTIC IMPRESSION AND PLAN: Patient admitted to the hospital with fever with concern for urosepsis. Patient clinically responding to the Rocephin. Plan to finish therapy with oral Ceftin, prescription has been sent to the pharmacy and monitor clinical course closely. MMODL / IJN: [id number] /
--- NOTE | 2019-10-05 12:36 | CDI ---
Documentation Clarification Form Date: 10/05/19 From: Kerrie Dooley Phone: If you have a question about this query, please contact Quita Marcelino, [employer] at [phone] between 8am and 5pm. Admit Date: 10/02/19 Discharge Date: 10/03/19 Patient Name: EPI PONCE Visit Number: [id number] ATTENTION: The Clinical Documentation Specialists (CDI) and [facility] Coding Staff appreciate your assistance in clarifying documentation. Please respond to the clarification below the line at the bottom and electronically sign. The CDI & [facility] Coding staff will review the response and follow-up if needed. Please note: Queries are made part of the Legal Health Record. If you have any questions, please contact the author of this message via ITS. Dear Dr. Wilfredo Rapp, The patient was transferred from another hospital due to UTI with sepsis. History/Risk Factors: pulm fibrosis, hyperlipidemia, BPH w retention, COPD, GERD, HTN, eye disorders, hx A fib Clinical Indicators: Per other hospital documentation: Patient admitted to the hospital with a fever, significantly positive UA in this patient who did have initial white count with difficulty urination.Likely the source of his fever and urinary tract infection and likely from enteric gram-negative pathogen. WBC: 18.8 Neutophils: 16.7 Lactic acid: 1.6 Blood cultures: none Vitals signs on admission: T-98.3, P-92, R-16, BP-129/66, O2 sats-93 (RA) Other Clinical Indicators: Total bilirubin-0.6/0.4 Treatment: IV fluids, IV Rocephin ID Consult: Patient admitted to the hospital with a fever, significantly positive UA in this patient who did have initial white count with difficulty urination.Likely the source of his fever and urinary tract infection and likely from enteric gram-negative pathogen. In your professional opinion, please clarify if these findings signify one of the following condition: Sepsis ruled out Sepsis due to UTI Other, please specify Unable to determine Identify the (suspected) organism SIRS Criteria (2 or more of the following may indicate SIRS): -Temperature < 96.8F (36C) or > 101.0F (38.3C) -Heart Rate > 90 bpm -Respiratory Rate > 20 breaths/min or PaCO2 < 32 mmHg -White Blood Cell Count > 12,000 or < 4,000 cells/mm3 or > 10% bands -Lactate >2.0 mmol/L (>4.0 is equivalent to septic shock) MTDD
--- NOTE | 2019-10-07 16:50 | P.DS ---
Providers Date of admission: 10/02/19 09:29 Expected date of discharge: 10/03/19 Attending physician: Wilfredo Rapp Consults: 09/30/19 21:30 Consult Physician Routine Consulting Provider: Gary Deluca Consult Reason/Comments: urinary retention Do you want consulting provider notified?: Yes 09/30/19 23:18 Consult Physician Routine Consulting Provider: Sintia Ramesh Consult Reason/Comments: uti/sepsis Do you want consulting provider notified?: Yes Primary care physician: Mary Morocho [facility] Course: Final Diagnoses: Possible acute recurrent UTI Chronic atrial fibrillation CAD renal cell carcinoma macular degeneration Gastroesophageal reflux disease Dyslipidemia retention generative joint disease reticulated COPD, stable Hospital course is a 84-year-old gentleman admitted with possible UTI with sepsis in a patient with history of renal cell carcinoma. Evaluated by pulmonary, neurology, infectious disease. Maintained on IV antibiotics of Rocephin with significant clinical improvement. Cleared by all consults for discharge. Patient is being discharged home in a stable condition with guarded prognosis. Microbiology 09/30/19 21:36 Urine,Clean Catch Urine Culture - Final The impression and plan of care has been dictated as directed. : I performed a history and examination of this patient, discussed the same with the dictator. I agree with the dictator's note ,documented as a scribe. Any additional findings or plans will be noted. Patient Condition at Discharge: Stable Plan - Discharge Summary Discharge Rx Participant: No New Discharge Prescriptions: New Tamsulosin [Flomax] 0.4 mg PO DAILY #30 cap.er.24h Cefuroxime Axetil [Ceftin] 500 mg PO BID #14 tab Continue Atorvastatin [Lipitor] 20 mg PO DAILY glipiZIDE [Glipizide Xl] 10 mg PO DAILY Latanoprost 1 drop BOTH EYES HS predniSONE [Prednisone] 5 mg PO DAILY Lisinopril [Zestril] 20 mg PO DAILY #30 tab Verapamil HCl [Verapamil ER] 240 mg PO DAILY ALPRAZolam [Xanax] 0.25 - 0.5 mg PO DAILY PRN PRN Reason: Anxiety Discharge Medication List Atorvastatin [Lipitor] 20 mg PO DAILY 03/19/15 [History] Latanoprost 1 drop BOTH EYES HS 03/19/15 [History] glipiZIDE [Glipizide Xl] 10 mg PO DAILY 03/19/15 [History] predniSONE [Prednisone] 5 mg PO DAILY 03/19/15 [History] Lisinopril [Zestril] 20 mg PO DAILY #30 tab 06/25/19 [Rx] ALPRAZolam [Xanax] 0.25 - 0.5 mg PO DAILY PRN 09/30/19 [History] Verapamil HCl [Verapamil ER] 240 mg PO DAILY 09/30/19 [History] Cefuroxime Axetil [Ceftin] 500 mg PO BID #14 tab 10/03/19 [Rx] Tamsulosin [Flomax] 0.4 mg PO DAILY #30 cap.er.24h 10/03/19 [Rx] Follow up Appointment(s)/Referral(s): Mary Morocho MD [Primary Care Provider] - 10/19/19 8:30 am [facility], [NON-STAFF] - Gary Deluca MD [STAFF PHYSICIAN] - 10/05/19 10:40 am (Patient to remove own catheter 8 hours prior to follow-up visit.) Ambulatory/Diagnostic Orders: Complete Blood Count w/diff [LAB.AMB] Time Frame: 3 Days, Location: None Selected Patient Instructions/Handouts: Cefuroxime (By mouth), Tamsulosin (By mouth), Urinary Retention in Men (GEN), Urinary Tract Infection in Men (DC), Duke Catheter Removal (DC) Discharge Disposition: HOME WITH HOME HEALTH SERVICES
--- NOTE | 2019-10-11 10:34 | CDI ---
Documentation Clarification Form Date: 10/11/19 From: Kerrie Dooley Phone: If you have a question about this query, please contact Quita Marcelino, [employer] Associate at [phone] between 8am and 5pm. Admit Date: 10/02/19 Discharge Date: 10/03/19 Patient Name: EPI PONCE Visit Number: [id number] ATTENTION: The Clinical Documentation Specialists (CDI) and [facility] Coding Staff appreciate your assistance in clarifying documentation. Please respond to the clarification below the line at the bottom and electronically sign. The CDI & [facility] Coding staff will review the response and follow-up if needed. Please note: Queries are made part of the Legal Health Record. If you have any questions, please contact the author of this message via ITS. Dear Dr. Wilfredo Rapp, The patient was transferred from another hospital due to UTI with sepsis. History/Risk Factors: pulm fibrosis, hyperlipidemia, BPH w retention, COPD, GERD, HTN, eye disorders, hx A fib Clinical Indicators: Per other hospital documentation: Patient admitted to the hospital with a fever, significantly positive UA in this patient who did have initial white count with difficulty urination.Likely the source of his fever and urinary tract infection and likely from enteric gram-negative pathogen. WBC: 18.8 Neutophils: 16.7 Lactic acid: 1.6 Blood cultures: none Vitals signs on admission: T-98.3, P-92, R-16, BP-129/66, O2 sats-93 (RA) Other Clinical Indicators: Total bilirubin-0.6/0.4 Treatment: IV fluids, IV Rocephin ID Consult: Patient admitted to the hospital with a fever, significantly positive UA in this patient who did have initial white count with difficulty urination.Likely the source of his fever and urinary tract infection and likely from enteric gram-negative pathogen. In your professional opinion, please clarify if these findings signify one of the following condition: Sepsis ruled out Sepsis due to UTI Other, please specify Unable to determine Identify the (suspected) organism SIRS Criteria (2 or more of the following may indicate SIRS): -Temperature < 96.8F (36C) or > 101.0F (38.3C) -Heart Rate > 90 bpm -Respiratory Rate > 20 breaths/min or PaCO2 < 32 mmHg -White Blood Cell Count > 12,000 or < 4,000 cells/mm3 or > 10% bands -Lactate >2.0 mmol/L (>4.0 is equivalent to septic shock) MTDD
--- NOTE | 2019-10-14 19:00 | DS ---
DISCHARGE SUMMARY ADDENDUM TO DISCHARGE SUMMARY: Sepsis due to urinary tract infection. MMODL / IJN: [id number] /
== END 2019-10-03 15:00 | disposition home health service (06) | DRG 872 ==
LOC: EC 20:59 → 5NMEDONC 21:30 → OBSVTOIN 10-02 09:29
PROVIDERS: ADMIT Family Medicine; ATTEND Family Medicine
DX: A41.9 Sepsis, unspecified organism (principal); N39.0 Urinary tract infection, site not specified; I48.20 Chronic atrial fibrillation, unspecified; J84.10 Pulmonary fibrosis, unspecified; E78.5 Hyperlipidemia, unspecified; N40.1 Benign prostatic hyperplasia with lower urinary tract symptoms; R33.8 Other retention of urine; J44.9 Chronic obstructive pulmonary disease, unspecified; K21.9 Gastro-esophageal reflux disease without esophagitis; I10 Essential (primary) hypertension; H35.30 Unspecified macular degeneration; H40.9 Unspecified glaucoma; G25.0 Essential tremor; G89.29 Other chronic pain; M54.9 Dorsalgia, unspecified; I25.10 Atherosclerotic heart disease of native coronary artery without angina pectoris; I25.2 Old myocardial infarction; K57.90 Diverticulosis of intestine, part unspecified, without perforation or abscess without bleeding; K44.9 Diaphragmatic hernia without obstruction or gangrene; M19.90 Unspecified osteoarthritis, unspecified site; Z79.84 Long term (current) use of oral hypoglycemic drugs; Z79.52 Long term (current) use of systemic steroids; Z79.899 Other long term (current) drug therapy; Z87.440 Personal history of urinary (tract) infections; Z87.891 Personal history of nicotine dependence; Z86.79 Personal history of other diseases of the circulatory system; Z85.528 Personal history of other malignant neoplasm of kidney; Z87.01 Personal history of pneumonia (recurrent); Z86.19 Personal history of other infectious and parasitic diseases; Z90.49 Acquired absence of other specified parts of digestive tract; Z90.79 Acquired absence of other genital organ(s); Z98.890 Other specified postprocedural states; Z85.828 Personal history of other malignant neoplasm of skin; Z95.5 Presence of coronary angioplasty implant and graft; Z90.5 Acquired absence of kidney; Z98.42 Cataract extraction status, left eye; Z98.41 Cataract extraction status, right eye; Z80.8 Family history of malignant neoplasm of other organs or systems; Z82.61 Family history of arthritis; Z83.6 Family history of other diseases of the respiratory system
CPT/HCPCS: 51701; 80053; 81001; 83605; 85025; 87086; 94640; 99285

== ENCOUNTER 2020-05-14 21:27 | Inpatient (IN) | payer MEDICARE, BC ==
[2020-05-14] MEDS ORDERED: ACETAMINOPHEN TAB 325 MG TAB PO STA (22:09)
[2020-05-14] MEDS ORDERED: SODIUM CHLORIDE 0.9% 500 ML 500 ML IV STA (22:10)
--- NOTE | 2020-05-14 22:16 | XR ---
EXAMINATION TYPE: XR chest 1V portable DATE OF EXAM: 05/14/2020 COMPARISON: 09/30/2019 HISTORY: Short of breath. TECHNIQUE: Single view FINDINGS: There is some patchy airspace consolidation right upper lobe on the lateral chest wall. Lef t lung is relatively clear. There is coarsening of interstitial markings. Thoracic aorta is atheromat ous. There is no definite pleural effusion. IMPRESSION: There is right upper lobe pneumonia that is new compared to old exam. No heart failure. T here is probably underlying pulmonary fibrosis and COPD.
[2020-05-14 22:39] LABS: Anisocytosis Slight; Basophils % (A) 1 %; Eosinophils % (A) 0 %; HCT 43.6 % (39.0-53.0); HGB 14.4 gm/dL (13.0-17.5); Lymphocytes # (A) 0.7 k/uL (1.0-4.8); Lymphocytes % (A) 13 %; MCH 25.2 pg (25.0-35.0); MCHC 33.1 g/dL (31.0-37.0); MCV 76.3 fL (80.0-100.0); Mean Platelet Volume 7.2; Microcytosis Slight; Monocytes # (A) 0.4 k/uL (0-1.0); Monocytes % (A) 7 %; Neutrophils # (A) 4.2 k/uL (1.3-7.7); Neutrophils % (A) 78 %; Platelet Count 161 k/uL (150-450); Poikilocytosis Slight; RBC 5.72 m/uL (4.30-5.90); RDW 16.6 % (11.5-15.5); WBC 5.4 k/uL (3.8-10.6)
[2020-05-14 22:48] LABS: Albumin 3.5 g/dL (3.5-5.0); C Reactive Protein 81.7 mg/L (<10.0); Calcium 8.3 mg/dL (8.4-10.2); Potassium 4.6 mmol/L (3.5-5.1); Total Bilirubin 0.8 mg/dL (0.2-1.3); Total Protein 6.5 g/dL (6.3-8.2)
[2020-05-14 22:49] LABS: D-Dimer 0.53 mg/L FEU (<0.60); Prothrombin Time 10.2 sec (9.0-12.0)
[2020-05-14 22:50] LABS: Partial Thromboplastin Time 33.5 sec (22.0-30.0)
--- NOTE | 2020-05-14 22:53 | ED ---
General Adult HPI - General Source: patient, EMS, RN notes reviewed Mode of arrival: EMS <Theo Ramirez - Last Filed: 05/14/20 23:16> <Gladys Baxter - Last Filed: 05/16/20 23:33> - General Chief complaint: Shortness of Breath Stated complaint: SOB Time Seen by Provider: 05/14/20 21:34 - History of Present Illness Initial comments: 85-year-old male with a complicated past medical history including atrial fibrillation, CAD, COPD, GERD, hyperlipidemia, hypertension, renal disease presents to the emergency room for a chief complaint of weakness. Patient reports that he was tested positive for covid 2 days ago. States that since temo t time he has been coughing and short of breath. Patient has history of COPD and used to be on home oxygen. Patient reports he has been shaking and very weak. reports that patient's oxygenation was at 82% on room air at home so she called the ambulance. They will able to improve this with oxygen. Patient was then brought to the emergency room department. (Theo Ramirez) - Related Data Home Medications Medication Instructions Recorded Confirmed Atorvastatin [Lipitor] 20 mg PO DAILY 03/19/15 05/14/20 Latanoprost 1 drop BOTH EYES HS 03/19/15 05/14/20 glipiZIDE [Glipizide Xl] 10 mg PO DAILY 03/19/15 05/14/20 predniSONE [Prednisone] 5 mg PO DAILY 03/19/15 05/14/20 Aspirin EC [Ecotrin Low Dose] 81 mg PO DAILY 05/14/20 05/14/20 Previous Rx's Medication Instructions Recorded lisinopriL [Zestril] 20 mg PO DAILY #30 tab 06/25/19 Acetaminophen Tab [Tylenol] 650 mg PO Q6HR PRN tab 05/15/20 Ascorbic Acid [Vitamin C] 1,000 mg PO DAILY #30 tablet 05/15/20 Cholecalciferol (Vitamin D3) 500 unit PO BID #60 liquid 05/15/20 [Vitamin D3] Dexamethasone [Decadron] 6 mg PO DAILY #9 tablet 05/15/20 Zinc Sulfate 220 mg PO DAILY #30 capsule 05/15/20 Allergies Allergy/AdvReac Type Severity Reaction Status Date / Time No Known Allergies Allergy Verified 05/14/20 21:48 Review of Systems ROS Other: All systems not noted in ROS Statement are negative. <Theo Ramirez P - Last Filed: 05/14/20 23:16> ROS Other: All systems not noted in ROS Statement are negative. <Gladys Baxter - Last Filed: 05/16/20 23:33> ROS Statement: Those systems with pertinent positive or pertinent negative responses have been documented in the HPI. Past Medical History Past Medical History: Atrial Fibrillation, Coronary Artery Disease (CAD), Cancer, COPD, Eye Disorder, GERD/Reflux, Hyperlipidemia, Hypertension, Myocardial Infarction ([place]), Osteoarthritis (OA), Pneumonia, Renal Disease, Respiratory Disorder Additional Past Medical History / Comment(s): chronic and recurrent urinary tract infections, UTI with sepsis, diverticulitis, previous history of bowel perforation had a colostomy since reversed, BPH-prostatectomy, renal cancer (lt), skin cancer with removal, tremors(non parkinsons), bilateral glaucoma, R eye macular degeneration, chronic back pain, bronchitis, uses 02 2 liters n/c prn, hiatal hernia. pulmonary fibrosis. Last Myocardial Infarction Date:: 1999 History of Any Multi-Drug Resistant Organisms: None Reported Past Surgical History: Appendectomy, Bowel Resection, Heart Catheterization With Stent, Hernia Repair, Prostate Surgery Additional Past Surgical History / Comment(s): nephrectomy(lt), lung bx-neg, prostatectomy, 2 cardiac stents, basal cell skin ca removed, cheryl cataracts, L eye steel shard removed, bowel sx 8 inches removed had colostomy since reversed- past med hx stated still has metal clip left in place, L inguinal hernia repair, skin grafts rt arm-pt fell into hot tar on construction site., nephrectomy Past Anesthesia/Blood Transfusion Reactions: No Reported Reaction Date of Last Stent Placement:: 1999 Past Psychological History: No Psychological Hx Reported Smoking Status: Never smoker Past Alcohol Use History: Occasional Past Drug Use History: None Reported - Past Family History Father Family Medical History: Osteoarthritis (OA), Pneumonia Additional Family Medical History / Comment(s): from pne after hip sx Mother Family Medical History: Cancer Additional Family Medical History / Comment(s): throat cancer <Theo Ramirez P - Last Filed: 05/14/20 23:16> General Exam General appearance: alert, in no apparent distress Head exam: Present: atraumatic, normocephalic, normal inspection Eye exam: Present: normal appearance, PERRL, EOMI. Absent: scleral icterus, conjunctival injection, periorbital swelling ENT exam: Present: normal exam, mucous membranes moist Neck exam: Present: normal inspection, full ROM. Absent: tenderness, meningismus, lymphadenopathy Respiratory exam: Present: normal lung sounds bilaterally. Absent: respiratory distress, wheezes, rales, rhonchi, stridor Cardiovascular Exam: Present: regular rate, normal rhythm, normal heart sounds. Absent: systolic murmur, diastolic murmur, rubs, gallop, clicks GI/Abdominal exam: Present: soft, normal bowel sounds. Absent: distended, tenderness, guarding, rebound, rigid Neurological exam: Present: alert <Theo Ramirez - Last Filed: 05/14/20 23:16> Course Vital Signs 05/14/20 05/14/20 05/15/20 21:31 21:35 00:44 Temperature 100.9 F H 99.4 F Pulse Rate 98 87 Pulse Rate [ Right] Respiratory 20 18 Rate Blood Pressure 161/96 150/72 Blood Pressure [Right Arm] O2 Sat by Pulse 97 95 94 L Oximetry 05/15/20 05/15/20 05:43 08:00 Temperature 98.7 F 96.9 F L Pulse Rate 86 Pulse Rate [ 100 Right] Respiratory 15 18 Rate Blood Pressure 113/58 Blood Pressure 155/72 [Right Arm] O2 Sat by Pulse 94 L 92 L Oximetry EKG Findings - EKG Comments: EKG Findings:: Sinus rhythm, ventricular rate 99, TX interval 108, QTC 428 <Theo Ramirez - Last Filed: 05/14/20 23:16> Medical Decision Making - Lab Data Result diagrams: 05/14/20 22:00 05/14/20 22:00 <Theo Ramirez - Last Filed: 05/14/20 23:16> - Lab Data Result diagrams: 05/14/20 22:00 05/14/20 22:00 <Gladys Baxter - Last Filed: 05/16/20 23:33> - Medical Decision Making Vitals are stable however patient did drop down to 92% on room air and was placed on 2 L nasal cannula. Satting around 95%. It was reported that he was low 80s at home. Patient is very weak and shaky. His chest x-ray does show right upper lobe pneumonia. CBC unremarkable. Lactic acid 1.1. CMP unremarkable. CRP is elevated at 81.7. At this time patient will be admitted for hypoxia steroid medication. (Theo Ramirez) I was available for consultation in the emergency department. The history and physical exam were done by the midlevel provider. I was consulted for this patients care. I reviewed the case with the midlevel provider and based on their presentation of the patient, I agree with the assessment, medical decision making and plan of care as documented. Chart was dictated using [employer] dictation software. Attempts were made to correct any dictation errors however some typographical errors may persist. Patient seen during the Covid-19 pandemic. (Gladys Baxter) - Lab Data Lab Results 05/14/20 05/14/20 05/14/20 Range/Units 22:00 22:00 22:00 WBC 5.4 (3.8-10.6) k/uL RBC 5.72 (4.30-5.90) m/uL Hgb 14.4 (13.0-17.5) gm/dL Hct 43.6 (39.0-53.0) % MCV 76.3 L (80.0-100.0) fL MCH 25.2 (25.0-35.0) pg MCHC 33.1 (31.0-37.0) g/dL RDW 16.6 H (11.5-15.5) % Plt Count 161 (150-450) k/uL MPV 7.2 Neutrophils % 78 % Lymphocytes % 13 % Monocytes % 7 % Eosinophils % 0 % Basophils % 1 % Neutrophils # 4.2 (1.3-7.7) k/uL Lymphocytes # 0.7 L (1.0-4.8) k/uL Monocytes # 0.4 (0-1.0) k/uL Eosinophils # 0.0 (0-0.7) k/uL Basophils # 0.0 (0-0.2) k/uL Poikilocytosis Slight Anisocytosis Slight Microcytosis Slight PT 10.2 (9.0-12.0) sec INR 1.0 (<1.2) APTT 33.5 H (22.0-30.0) sec D-Dimer 0.53 (<0.60) mg/L FEU Sodium 135 L (137-145) mmol/L Potassium 4.6 (3.5-5.1) mmol/L Chloride 104 (98-107) mmol/L Carbon Dioxide 27 (22-30) mmol/L Anion Gap 4 mmol/L BUN 20 (9-20) mg/dL Creatinine 1.11 (0.66-1.25) mg/dL Est GFR (CKD-EPI)AfAm 71 (>60 ml/min/1.73 sqM) Est GFR (CKD-EPI)NonAf 61 (>60 ml/min/1.73 sqM) Glucose 152 H (74-99) mg/dL Plasma Lactic Acid Jak (0.7-2.0) mmol/L Calcium 8.3 L (8.4-10.2) mg/dL Magnesium 2.0 (1.6-2.3) mg/dL Ferritin 99.1 (22.0-322.0) ng/mL Total Bilirubin 0.8 (0.2-1.3) mg/dL AST 41 (17-59) U/L ALT 11 (4-49) U/L Alkaline Phosphatase 54 (38-126) U/L Lactate Dehydrogenase 935 H (313-618) U/L C-Reactive Protein 81.7 H (<10.0) mg/L Total Protein 6.5 (6.3-8.2) g/dL Albumin 3.5 (3.5-5.0) g/dL Procalcitonin (0.02-0.09) ng/mL 05/14/20 05/14/20 Range/Units 22:00 22:00 WBC (3.8-10.6) k/uL RBC (4.30-5.90) m/uL Hgb (13.0-17.5) gm/dL Hct (39.0-53.0) % MCV (80.0-100.0) fL MCH (25.0-35.0) pg MCHC (31.0-37.0) g/dL RDW (11.5-15.5) % Plt Count (150-450) k/uL MPV Neutrophils % % Lymphocytes % % Monocytes % % Eosinophils % % Basophils % % Neutrophils # (1.3-7.7) k/uL Lymphocytes # (1.0-4.8) k/uL Monocytes # (0-1.0) k/uL Eosinophils # (0-0.7) k/uL Basophils # (0-0.2) k/uL Poikilocytosis Anisocytosis Microcytosis PT (9.0-12.0) sec INR (<1.2) APTT (22.0-30.0) sec D-Dimer (<0.60) mg/L FEU Sodium (137-145) mmol/L Potassium (3.5-5.1) mmol/L Chloride (98-107) mmol/L Carbon Dioxide (22-30) mmol/L Anion Gap mmol/L BUN (9-20) mg/dL Creatinine (0.66-1.25) mg/dL Est GFR (CKD-EPI)AfAm (>60 ml/min/1.73 sqM) Est GFR (CKD-EPI)NonAf (>60 ml/min/1.73 sqM) Glucose (74-99) mg/dL Plasma Lactic Acid Jak 1.1 (0.7-2.0) mmol/L Calcium (8.4-10.2) mg/dL Magnesium (1.6-2.3) mg/dL Ferritin (22.0-322.0) ng/mL Total Bilirubin (0.2-1.3) mg/dL AST (17-59) U/L ALT (4-49) U/L Alkaline Phosphatase (38-126) U/L Lactate Dehydrogenase (313-618) U/L C-Reactive Protein (<10.0) mg/L Total Protein (6.3-8.2) g/dL Albumin (3.5-5.0) g/dL Procalcitonin 0.08 (0.02-0.09) ng/mL Disposition Is patient prescribed a controlled substance at d/c from ED?: No Time of Disposition: 23:17 <Theo Ramirez - Last Filed: 05/14/20 23:16> <Gladys Baxter - Last Filed: 05/16/20 23:33> Clinical Impression: Fever, COVID-19, Elevated C-reactive protein (CRP), Hypoxia Disposition: HOME SELF-CARE Condition: Fair
[2020-05-14] MEDS ORDERED: ACETAMINOPHEN TAB 325 MG TAB PO PRN (23:18)
[2020-05-14] MEDS ORDERED: NALOXONE 0.4 MG/ML 1 ML VIAL IV PRN (23:18)
[2020-05-14] MEDS ORDERED: SODIUM CHLORIDE 0.9% 1,000 ML IV SCH (23:30)
[2020-05-15] MEDS: DEXAMETHASONE SOD PHOSPHATE 10 MG/ML 1 ML VIAL IV SCH ×2 (00:40→10:15)
[2020-05-15 03:17] LABS: Ferritin 99.1 ng/mL (22.0-322.0)
[2020-05-15] MEDS ORDERED: ENOXAPARIN 40 MG/0.4 ML SYRINGE SQ SCH (09:00)
--- NOTE | 2020-05-15 09:48 | CONS ---
CONSULTATION PULMONARY/CRITICAL CARE CONSULTATION: DATE OF CONSULTATION: 05/15/2020 This is a patient who was seen in the emergency room on May 14, 2020. The patient came in with apparently being short of breath. The patient apparently tested positive a couple days ago at an outside hospital. At that time, he was not feeling well. He states that time he was sick. He was coughing, and short of breath. He did mention fever. He also felt weak. Anyway, the patient currently is feeling well. He states that he is not having any difficulty with his breathing whatsoever. He apparently was told to come into the hospital to be evaluated. Apparently he is here to be admitted. Currently, he is on room air. Not receiving any IV fluids. Room air saturation 94%. He states he is feeling just fine. He was sick a couple days ago when he was first tested. Currently, he would like to be discharged home. He could be discharged home likely on some Decadron 6 mg for 10 days as well as vitamin C, vitamin D3, and zinc. He was told that if he is discharged home, he could come back into the hospital should he worsen. HOME MEDICATIONS: Reviewed. He is on Lipitor, eye drops, glipizide, prednisone, aspirin, and lisinopril. ALLERGIES: Denied. MEDICAL HISTORY: Includes atrial fibrillation, CAD, COPD, GERD, hyperlipidemia, hypertension, previous myocardial infarction, DJD, GERD, and chronic and recurrent urinary tract infections with sepsis. He also has a history of diverticular disease, bowel perforation and subsequent colostomy which has been reversed, BPH, renal cancer, skin cancer, benign essential tremors, glaucoma, macular degeneration, and chronic oxygen use at home p.r.n. The patient apparently carries with him a diagnosis of pulmonary fibrosis as well. I believe he sees one of my partners. SURGICAL HISTORY: Includes appendectomy, bowel resection with colectomy and colostomy, subsequent reversal, heart catheterization with stent, hernia repair, and prostate surgery. He has also had a left nephrectomy, prostatectomy, basal cell skin cancer, bilateral cataract surgery, among a number of other procedures. SOCIAL HISTORY: Negative for tobacco use. He drinks alcohol occasionally. No illicit drug use. FAMILY HISTORY: Positive for father with pneumonia and osteoarthritis and mother with throat cancer. REVIEW OF SYSTEMS: CONSTITUTIONAL: Fever, chills, resolved. Weakness and fatigue, improved. NEUROLOGIC: Negative. HEENT: Negative. CARDIOVASCULAR: Negative. PULMONARY: Shortness of breath and cough, both resolved. GI: Negative. : Negative. RHEUMATOLOGIC: Negative. IMMUNOLOGIC: Negative. ENDOCRINOLOGIC: Negative. DERMATOLOGIC: Negative. Current vital signs are reviewed. Temperature is 97, heart rate 86, respiratory rate 16, blood pressure 113/58 mean 76, room air saturation 94%. Appears in no acute distress. T-max is 100.9. HEENT: Examination is grossly unremarkable. No supplemental oxygen. NECK: Supple., full range of motion. No adenopathy. Neck veins are flat. CARDIOVASCULAR: Examination reveals regular rhythm and rate. Heart rate 86 beats per minute. S1, S2 normal. LUNGS: Reveal mostly clear breath sounds. A few scattered mild rhonchi. No wheezes or crackles. ABDOMEN: Soft, bowel sounds are heard. EXTREMITIES: Intact. No edema. SKIN: Without rash. NEUROLOGIC: Examination is brief but nonfocal. White count 5.4, hemoglobin 14.4, hematocrit 43.6, platelet count 161,000. PT, INR normal, PTT 33.5. D-dimer is 0.53. Sodium 135, potassium chloride, CO2 is normal, anion gap is normal. BUN and creatinine were normal. LDH 935, C-reactive protein 81.7. Microbiology is all negative. Chest x-ray shows some patchy infiltrates primarily in the right lung, the left lung is clear. Current medications include Tylenol, Decadron, Lovenox, Narcan, and saline at 75 mL an hour. ASSESSMENT: 1. COVID-19 pneumonia/pneumonitis, mild hypoxemia. 2. Hyperlipidemia. 3. Diabetes mellitus. 4. History of hypertension. 5. History of atrial fibrillation. 6. History of coronary artery disease. 7. Previous history of nephrectomy for hypernephroma. 8. Macular degeneration. 9. Cataracts. 10.Glaucoma. 11.Hyperlipidemia. 12.History of hypertension. 13.Prior history of myocardial infarction. 14.Gastroesophageal reflux disease. 15.Chronic hypoxemic respiratory failure with p.r.n. oxygen use for either COPD and/or pulmonary fibrosis. PLAN: The patient looks well. From my perspective the patient could be discharged home. He should be sent home on vitamin C, vitamin D3, and zinc. He should also be sent home on Decadron 6 mg a day for 10 days. He would be instructed to come back into the emergency room should he worsen. Additional recommendations and suggestions are forthcoming. We let the nurse know that the primary should be called and consider discharging this patient home. No additional recommendations are made. Will continue to follow. Prognosis is guarded. MMODL / IJN: [id number] /
[2020-05-15 11:24] VITALS: BP 155/72; PULSE 100; RESP 18; TEMP 96.9
--- NOTE | 2020-05-16 02:21 | P.HPIM ---
History of Present Illness Diagnoses Diagnoses: I think that she is to summary Pelvic 19 infection With the right upper lobe pneumonia fever secondary to above Increased inflammatory markers secondary to above History of Atrial fibrillation, paroxysmal.not on anticoagulation Coronary artery disease COPD, and acute exacerbation GERD Hyperlipidemia Hypertension Osteoarthritis History of Benign prostatic Atrophy History of Left renal cancer History of skin cancer History of polyps, Chronic low back pain Hiatal hernia Pulmonary fibrosis Hospital course Please consider this note as combined H and P and discharge summary This is a pleasant 85 years old male with past medical history of coronary artery disease, COPD, GERD, hyperlipidemia, hypertension, osteoarthritis, benign prostatic hypertrophy, renal cancer of the left side, skin cancer, bilateral glaucoma, chronic back pain, hiatal hernia, pulmonary fibrosis. Presents because of generalized weakness. And patient states that he is been diagnosed with [place] it 19 about 2-3 days ago. No chest pain or upper respiratory symptoms. He has low-grade fever on admission at 200.9, rest of vitals are stable, saturating 94% on room air. reviewed showing negative d-dimer 0.5, the risks of CBC, BMP, liver enzymes are unremarkable except for mild lymphopenia at 0.7. Increased lactate dehydrogenase at 955 and C-reactive protein at 81 EKG showing sinus rhythm at [address] changes Chest x-ray: Showing right upper lobe pneumonia that is new compared to old exam. No heart failure. There is probably underlying pulmonary fibrosis and COPD Patient was started on normal saline at 75 mm/h with Lovenox, dexamethasone. Patient has been evaluated by pulmonary service and they cleared him for discharge today Patient will be discharged and vitamin D, vitamin C, zinc and Decadron as per pulmonary team recommendation Physical exam GENERAL: The patient is alert and oriented x3, not in any acute distress. Well d eveloped, well nourished. HEENT: Pupils are round and equally reacting to light. EOMI. No scleral icterus. No conjunctival pallor. Normocephalic, atraumatic. No pharyngeal erythema. No thyromegaly. CARDIOVASCULAR: S1 and S2 present. No murmurs, rubs, or gallops. PULMONARY: Chest is clear to auscultation, no wheezing or crackles. ABDOMEN: Soft, nontender, nondistended, normoactive bowel sounds. No palpable organomegaly. MUSCULOSKELETAL: No joint swelling or deformity. EXTREMITIES: No cyanosis, clubbing, or pedal edema. NEUROLOGICAL: Gross neurological examination did not reveal any focal deficits. SKIN: No rashes. no petechiae. Disposition Patient was cleared by pulmonary service for patient to be discharged Problems and management plan were discussed with the patient and he verbalized understanding and acceptance Patient was found stable and can be discharged home however he needs follow-up as an outpatient. Patient was instructed to follow up with PCP within one week and patient agrees Time spent more than 35 minutes Past Medical History Past Medical History: Atrial Fibrillation, Coronary Artery Disease (CAD), Cancer, COPD, Eye Disorder, GERD/Reflux, Hyperlipidemia, Hypertension, Myocardial Infarction ([place]), Osteoarthritis (OA), Pneumonia, Renal Disease, Respiratory Disorder Additional Past Medical History / Comment(s): chronic and recurrent urinary tract infections, UTI with sepsis, diverticulitis, previous history of bowel perforation had a colostomy since reversed, BPH-prostatectomy, renal cancer (lt), skin cancer with removal, tremors(non parkinsons), bilateral glaucoma, R eye macular degeneration, chronic back pain, bronchitis, uses 02 2 liters n/c prn, hiatal hernia. pulmonary fibrosis. Last Myocardial Infarction Date:: 1999 History of Any Multi-Drug Resistant Organisms: None Reported Past Surgical History: Appendectomy, Bowel Resection, Heart Catheterization With Stent, Hernia Repair, Prostate Surgery Additional Past Surgical History / Comment(s): nephrectomy(lt), lung bx-neg, prostatectomy, 2 cardiac stents, basal cell skin ca removed, cheryl cataracts, L ey e steel shard removed, bowel sx 8 inches removed had colostomy since reversed- past med hx stated still has metal clip left in place, L inguinal hernia repair, skin grafts rt arm-pt fell into hot tar on construction site., nephrectomy Past Anesthesia/Blood Transfusion Reactions: No Reported Reaction Date of Last Stent Placement:: 1999 Past Psychological History: No Psychological Hx Reported Smoking Status: Never smoker Past Alcohol Use History: Occasional Past Drug Use History: None Reported - Past Family History Father Family Medical History: Osteoarthritis (OA), Pneumonia Additional Family Medical History / Comment(s): from pne after hip sx Mother Family Medical History: Cancer Additional Family Medical History / Comment(s): throat cancer Medications and Allergies Home Medications Medication Instructions Recorded Confirmed Type Atorvastatin [Lipitor] 20 mg PO DAILY 03/19/15 05/14/20 History Latanoprost 1 drop BOTH EYES HS 03/19/15 05/14/20 History glipiZIDE [Glipizide Xl] 10 mg PO DAILY 03/19/15 05/14/20 History predniSONE [Prednisone] 5 mg PO DAILY 03/19/15 05/14/20 History lisinopriL [Zestril] 20 mg PO DAILY #30 tab 06/25/19 05/14/20 Rx Aspirin EC [Ecotrin Low Dose] 81 mg PO DAILY 05/14/20 05/14/20 History Allergies Allergy/AdvReac Type Severity Reaction Status Date / Time No Known Allergies Allergy Verified 05/14/20 21:48 Physical Exam Vitals: Vital Signs Temp Pulse Resp BP Pulse Ox 05/15/20 05:43 98.7 F 86 15 113/58 94 L 05/15/20 00:44 99.4 F 87 18 150/72 94 L 05/14/20 21:35 95 05/14/20 21:31 100.9 F H 98 20 161/96 97 Intake and Output 05/14/20 05/15/20 05/15/20 22:59 06:59 14:59 Other: Weight 84.368 kg Results CBC & Chem 7: 05/14/20 22:00 05/14/20 22:00 Labs: Abnormal Lab Results - Last 24 Hours (Table) 05/14/20 05/14/20 05/14/20 Range/Units 22:00 22:00 22:00 MCV 76.3 L (80.0-100.0) fL RDW 16.6 H (11.5-15.5) % Lymphocytes # 0.7 L (1.0-4.8) k/uL APTT 33.5 H (22.0-30.0) sec Sodium 135 L (137-145) mmol/L Glucose 152 H (74-99) mg/dL Calcium 8.3 L (8.4-10.2) mg/dL Lactate Dehydrogenase 935 H (313-618) U/L C-Reactive Protein 81.7 H (<10.0) mg/L
== END 2020-05-15 12:01 | disposition home or self-care (01) | DRG 177 ==
LOC: EC 21:27 → 6NMEDSUR 23:12
PROVIDERS: ADMIT Hospitalist; ATTEND Hospitalist
DX: U07.1 COVID-19 (principal); J12.89 Other viral pneumonia; J44.0 Chronic obstructive pulmonary disease with (acute) lower respiratory infection; J96.11 Chronic respiratory failure with hypoxia; J44.1 Chronic obstructive pulmonary disease with (acute) exacerbation; J84.10 Pulmonary fibrosis, unspecified; E11.9 Type 2 diabetes mellitus without complications; R79.82 Elevated C-reactive protein (CRP); I10 Essential (primary) hypertension; E78.5 Hyperlipidemia, unspecified; I25.10 Atherosclerotic heart disease of native coronary artery without angina pectoris; K21.9 Gastro-esophageal reflux disease without esophagitis; N40.0 Benign prostatic hyperplasia without lower urinary tract symptoms; M19.90 Unspecified osteoarthritis, unspecified site; G89.29 Other chronic pain; D72.810 Lymphocytopenia; M54.9 Dorsalgia, unspecified; H35.30 Unspecified macular degeneration; H40.9 Unspecified glaucoma; K44.9 Diaphragmatic hernia without obstruction or gangrene; I48.0 Paroxysmal atrial fibrillation; M54.5 Low back pain; R25.1 Tremor, unspecified; Z99.81 Dependence on supplemental oxygen; I25.2 Old myocardial infarction; Z90.79 Acquired absence of other genital organ(s); Z90.49 Acquired absence of other specified parts of digestive tract; Z98.890 Other specified postprocedural states; Z95.5 Presence of coronary angioplasty implant and graft; Z90.5 Acquired absence of kidney; Z98.42 Cataract extraction status, left eye; Z98.41 Cataract extraction status, right eye; Z79.899 Other long term (current) drug therapy; Z79.84 Long term (current) use of oral hypoglycemic drugs; Z79.82 Long term (current) use of aspirin; Z79.52 Long term (current) use of systemic steroids; Z85.528 Personal history of other malignant neoplasm of kidney; Z85.828 Personal history of other malignant neoplasm of skin; Z87.440 Personal history of urinary (tract) infections; Z80.8 Family history of malignant neoplasm of other organs or systems; Z82.61 Family history of arthritis; Z87.19 Personal history of other diseases of the digestive system; Z93.3 Colostomy status; Z87.01 Personal history of pneumonia (recurrent)
CPT/HCPCS: 36415; 71045; 80053; 82728; 83605; 83615; 83735; 84145; 85025; 85379; 85610; 85730; 86140; 93005; 96361; 96372; 96374; 96376; 99285

== ENCOUNTER 2022-08-27 14:10 | Observation (INO) | payer MEDICARE, BC ==
[2022-08-27] MEDS ORDERED: NITROGLYCERIN SL TABS 0.4 MG TAB SUBLINGUAL PRN (14:57)
[2022-08-27] MEDS ORDERED: ASPIRIN 81 MG PO STA (14:57)
--- NOTE | 2022-08-27 14:57 | ED ---
General Adult HPI - General Chief complaint: Chest Pain Stated complaint: Cardiac Time Seen by Provider: 08/27/22 14:13 Source: patient, EMS, RN notes reviewed Mode of arrival: EMS Limitations: altered mental status - History of Present Illness Initial comments: Patient is a pleasant 87-year-old male presenting to the emergency Department as a transfer from [facility]. Patient was therefore dizziness. Patient was found to have low hemoglobin with negative Hemoccult. Patient did receive blood transfusion. Following this patient did have some chest discomfort and troponin was repeated and mildly elevated. Patient does not recall having any chest discomfort. Patient was transferred from [facility] for cardiac evaluation - Related Data Home Medications Medication Instructions Recorded Confirmed Atorvastatin [Lipitor] 20 mg PO DAILY 03/19/15 05/14/20 Latanoprost [Latanoprost 0.005%] 1 drop BOTH EYES HS 03/19/15 05/14/20 glipiZIDE [Glipizide Xl] 10 mg PO DAILY 03/19/15 05/14/20 predniSONE [Prednisone] 5 mg PO DAILY 03/19/15 05/14/20 Aspirin EC [Ecotrin Low Dose] 81 mg PO DAILY 05/14/20 05/14/20 Previous Rx's Medication Instructions Recorded lisinopriL [Zestril] 20 mg PO DAILY #30 tab 06/25/19 Acetaminophen Tab [Tylenol] 650 mg PO Q6HR PRN tab 05/15/20 Ascorbic Acid [Vitamin C] 1,000 mg PO DAILY #30 tablet 05/15/20 Cholecalciferol (Vitamin D3) 500 unit PO BID #60 liquid 05/15/20 [Vitamin D3] Zinc Sulfate 220 mg PO DAILY #30 capsule 05/15/20 dexAMETHasone [Decadron] 6 mg PO DAILY #9 tablet 05/15/20 Allergies Allergy/AdvReac Type Severity Reaction Status Date / Time No Known Allergies Allergy Verified 08/27/22 14:21 Review of Systems ROS Statement: Those systems with pertinent positive or pertinent negative responses have been documented in the HPI. ROS Other: All systems not noted in ROS Statement are negative. Constitutional: Denies: fever Eyes: Denies: eye pain ENT: Denies: ear pain Respiratory: Denies: dyspnea Cardiovascular: Reports: as per HPI Endocrine: Denies: fatigue Gastrointestinal: Denies: abdominal pain Genitourinary: Denies: urgency Musculoskeletal: Denies: back pain Skin: Denies: rash Neurological: Reports: other (Dizziness has resolved.) Past Medical History Past Medical History: Atrial Fibrillation, Coronary Artery Disease (CAD), Cancer, COPD, Eye Disorder, GERD/Reflux, Hyperlipidemia, Hypertension, Myocardial Infarction ([place]), Osteoarthritis (OA), Pneumonia, Renal Disease, Respiratory Disorder Additional Past Medical History / Comment(s): chronic and recurrent urinary tract infections, UTI with sepsis, diverticulitis, previous history of bowel perforation had a colostomy since reversed, BPH-prostatectomy, renal cancer (lt), skin cancer with removal, tremors(non parkinsons), bilateral glaucoma, R eye macular degeneration, chronic back pain, bronchitis, uses 02 2 liters n/c prn, hiatal hernia. pulmonary fibrosis. Last Myocardial Infarction Date:: 1999 History of Any Multi-Drug Resistant Organisms: MRSA Date of last positivie culture/infection: 07/27/20 MDRO Source:: MRSA URINE Past Surgical History: Appendectomy, Bowel Resection, Heart Catheterization With Stent, Hernia Repair, Prostate Surgery Additional Past Surgical History / Comment(s): nephrectomy(lt), lung bx-neg, prostatectomy, 2 cardiac stents, basal cell skin ca removed, cheryl cataracts, L eye steel shard removed, bowel sx 8 inches removed had colostomy since reversed- past med hx stated still has metal clip left in place, L inguinal hernia repair, skin grafts rt arm-pt fell into hot tar on construction site., nephrectomy Past Anesthesia/Blood Transfusion Reactions: No Reported Reaction Date of Last Stent Placement:: 1999 Past Psychological History: No Psychological Hx Reported Smoking Status: Never smoker Past Alcohol Use History: Occasional Past Drug Use History: None Reported - Past Family History Father Family Medical History: Osteoarthritis (OA), Pneumonia Additional Family Medical History / Comment(s): from pne after hip sx Mother Family Medical History: Cancer Additional Family Medical History / Comment(s): throat cancer General Exam Limitations: no limitations General appearance: alert, in no apparent distress Head exam: Present: normocephalic Eye exam: Present: normal appearance, PERRL, EOMI Neck exam: Present: normal inspection Respiratory exam: Present: normal lung sounds bilaterally Cardiovascular Exam: Present: regular rate, normal rhythm Expanded Peripheral pulses: 2+: Radial (R), Radial (L), Dorsalis Pedis (R), Dorsalis Pedis (L) GI/Abdominal exam: Present: soft. Absent: tenderness Extremities exam: Present: normal inspection. Absent: pedal edema, calf tenderness Neurological exam: Present: alert Psychiatric exam: Present: normal affect, normal mood Skin exam: Present: normal color Course Vital Signs 08/27/22 14:12 Temperature 98.0 F Pulse Rate 68 Respiratory 18 Rate Blood Pressure 143/69 O2 Sat by Pulse 95 Oximetry EKG Findings - EKG Results: EKG: interpreted by ERMD, sinus rhythm, normal axis, normal QRS, normal ST/T Medical Decision Making - Medical Decision Making Was pt. sent in by a medical professional or institution (, PA, FLAG DECORATOR, urgent care, hospital, or long-term...) When possible be specific @ -Patient was sent from [facility] Did you speak to anyone other than the patient for history (EMS, parent, family, police, friend...)? What history was obtained from this source @ -No Did you review nursing and triage notes (agree or disagree)? Why? @ -I reviewed and agree with nursing and triage notes Were old charts reviewed (outside hosp., previous admission, EMS record, old EKG, old radiological studies, urgent care reports/EKG's, long-term records)? Report findings @ -Chart reviewed from [facility] Differential Diagnosis (chest pain, altered mental status, abdominal pain women, abdominal pain men, vaginal bleeding, weakness, fever, dyspnea, syncope, headache, dizziness, GI bleed, back pain, seizure, CVA, palpatations, mental health)? @ -Differential Chest Pain: Stable Angina, Unstable Angina, STEMI, NSTEMI Aortic Dissection, Pneumothorax, Musculoskeletal, Esophageal Spasm GERD, Cholecystitis, Pancreatitis, Zoster, this is not meant to be an all-inclusive list. EKG interpreted by me (3pts min.). @ -As above X-rays interpreted by me (1pt min.). @ -None done CT interpreted by me (1pt min.). @ -None done U/S interpreted by me (1pt. min.). @ -None done What testing was considered but not performed or refused? (CT, X-rays, U/S, labs)? Why? @ -None What meds were considered but not given or refused? Why? @ -None Did you discuss the management of the patient with other professionals (professionals i.e. , PA, FLAG DECORATOR, lab, RT, psych nurse, social services designee, switch technician, teacher, retail loan officer, onsite case manager)? Give summary @ -Case was discussed with Dr. Castle, who will admit covering for hospital call. Was smoking cessation discussed for >3mins.? @ - Was critical care preformed (if so, how long)? @ -No Were there social determinants of health that impacted care today? How? (Homelessness, low income, unemployed, alcoholism, drug addiction, transportation, low edu. Level, literacy, decrease access to med. care, senior living, rehab)? @ -No Was there de-escalation of care discussed even if they declined (Discuss DNR or withdrawal of care, Hospice)? DNR status @ -No What co-morbidities impacted this encounter? (DM, HTN, Smoking, COPD, CAD, Cancer, CVA, ARF, Chemo, Hep., AIDS, mental health diagnosis, sleep apnea, morbid obesity)? @ -None Was patient admitted / discharged? Hospital course, mention meds given and route, prescriptions, significant lab abnormalities, going to OR and other pertinent info. @ -Patient will be admitted. Orders written. Patient updated Undiagnosed new problem with uncertain prognosis? @ -No Drug Therapy requiring intensive monitoring for toxicity (Heparin, Nitro, Insulin, Cardizem)? @ -No Were any procedures done? @ -No Diagnosis/symptom? @ -Chest pain Acute, or Chronic, or Acute on Chronic? @ -Acute Uncomplicated (without systemic symptoms) or Complicated (systemic symptoms)? @ -default Side effects of treatment? @ -No Exacerbation, Progression, or Severe Exacerbation? @ -No Poses a threat to life or bodily function? How? (Chest pain, [place], [place], pneumonia, PE, COPD, DKA, ARF, appy, cholecystitis, CVA, Diverticulitis, Homicidal, Suicidal, threat to staff... and all critical care pts) @ -No Disposition Clinical Impression: Chest pain Disposition: ADMITTED IP TO THIS HOSP Is patient prescribed a controlled substance at d/c from ED?: No Referrals: None,Stated [Primary Care Provider] - 1-2 days Time of Disposition: 14:57
[2022-08-27] MEDS ORDERED: NALOXONE 0.4 MG/ML 1 ML VIAL IV PRN (14:59)
--- NOTE | 2022-08-27 20:22 | P.HPIM ---
History of Present Illness H&P Date: 08/27/22 Chief Complaint: Dizziness and weakness Patient is a 86-year-old male with a known history of coronary artery disease with history of stent placement, atrial fibrillation paroxysmal not on anticoagulation currently, hypertension, diabetes type 2 [id number], hyperlipidemia, GERD, pulmonary fibrosis on home oxygen at 2 L as needed, chronic low back pain, history of diverticulitis with bowel perforation status post colostomy and reversal. Patient initially presented to [facility] due to complaints of dizziness and weakness for the past 2 weeks. Patient was found to have low hemoglobin level of 6.1 and received 1 unit of PRBC. Today patient was found to have elevated troponin level. Repeat hemoglobin was told to be about 9. Patient was transferred to [facility] for further evaluation by cardiology. Otherwise patient is somewhat poor historian. History was taken from his at bedside. Patient denies any complaints of chest pain. No complaints of nausea or vomiting or abdominal pain. No worsening leg swelling. Denies any dark-colored stools. Patient only takes aspirin at home. Denies any [id number] pain medication use including Motrin. Laboratory data reviewed from [facility]. Review of Systems Complete review of systems could not be obtained from the patient except as per HPI. Past Medical History Past Medical History: Atrial Fibrillation, Coronary Artery Disease (CAD), Cancer, COPD, Eye Disorder, GERD/Reflux, Hyperlipidemia, Hypertension, Myocardial Infarction ([place]), Osteoarthritis (OA), Pneumonia, Renal Disease, Respiratory Disorder Additional Past Medical History / Comment(s): chronic and recurrent urinary tract infections, UTI with sepsis, diverticulitis, previous history of bowel perforation had a colostomy since reversed, BPH-prostatectomy, renal cancer (lt), skin cancer with removal, tremors(non parkinsons), bilateral glaucoma, R eye macular degeneration, chronic back pain, bronchitis, uses 02 2 liters n/c prn, hiatal hernia. pulmonary fibrosis. Last Myocardial Infarction Date:: 1999 History of Any Multi-Drug Resistant Organisms: MRSA Date of last positivie culture/infection: 07/27/20 MDRO Source:: MRSA URINE Past Surgical History: Appendectomy, Bowel Resection, Heart Catheterization With Stent, Hernia Repair, Prostate Surgery Additional Past Surgical History / Comment(s): nephrectomy(lt), lung bx-neg, pro statectomy, 2 cardiac stents, basal cell skin ca removed, cheryl cataracts, L eye steel shard removed, bowel sx 8 inches removed had colostomy since reversed- past med hx stated still has metal clip left in place, L inguinal hernia repair, skin grafts rt arm-pt fell into hot tar on construction site., nephrectomy Past Anesthesia/Blood Transfusion Reactions: No Reported Reaction Date of Last Stent Placement:: 1999 Past Psychological History: No Psychological Hx Reported Smoking Status: Never smoker Past Alcohol Use History: Occasional Past Drug Use History: None Reported - Past Family History Father Family Medical History: Osteoarthritis (OA), Pneumonia Additional Family Medical History / Comment(s): from pne after hip sx Mother Family Medical History: Cancer Additional Family Medical History / Comment(s): throat cancer Medications and Allergies Home Medications Medication Instructions Recorded Confirmed Type Atorvastatin [Lipitor] 20 mg PO DAILY 03/19/15 08/27/22 History Latanoprost [Latanoprost 0.005%] 1 drop BOTH EYES HS 03/19/15 08/27/22 History glipiZIDE [Glipizide Xl] 10 mg PO DAILY 03/19/15 08/27/22 History predniSONE [Prednisone] 5 mg PO DAILY 03/19/15 08/27/22 History lisinopriL [Zestril] 20 mg PO BID 08/27/22 08/27/22 History Allergies Allergy/AdvReac Type Severity Reaction Status Date / Time No Known Allergies Allergy Verified 08/27/22 16:09 Physical Exam Vitals: Vital Signs Temp Pulse Pulse Resp BP BP Pulse Ox 08/27/22 20:00 98.3 F 101 H 18 183/85 08/27/22 18:00 85 24 131/65 95 08/27/22 16:00 81 24 130/75 95 08/27/22 15:00 80 22 149/69 95 08/27/22 14:12 98.0 F 68 18 143/69 95 Intake and Output 08/27/22 08/27/22 08/27/22 06:59 14:59 22:59 Other: Weight 66.678 kg PHYSICAL EXAMINATION: Patient is lying in the bed comfortably, no acute distress, awake alert and oriented x1-2... HEENT: Normocephalic. Neck is supple. Pupils reactive. Nostrils clear. Oral cavity is moist. Neck reveals no JVD, carotid bruits, or thyromegaly. CHEST EXAMINATION: Trachea is central. Symmetrical expansion. Bibasilar diminished sounds. Lung wallace clear to auscultation and percussion. CARDIAC: Normal S1, S2 with no gallops. No murmurs ABDOMEN: Soft. Bowel sounds present. Nontender. No organomegaly. No abdominal bruits. Extremities: Trace bilateral pedal edema. No clubbing or cyanosis Neurologically awake, alert, oriented x 1-2 no gross focal deficits noted Skin: No rash or skin lesions. Psychiatric: Coperative. Could not be assessed completely Musculoskeletal: No joint swelling or deformity. Normal range of motion. Results Labs: Abnormal Lab Results - Last 24 Hours (Table) 08/27/22 Range/Units 15:15 Troponin I 0.053 H* (0.000-0.034) ng/mL Thrombosis Risk Factor Assmnt - DVT/VTE Prophylaxis DVT/VTE Prophylaxis: Pharmacologic Prophylaxis ordered Assessment and Plan Assessment: elevated troponin level possible demand ischemia. Anemia with hemoglobin level 6.1 at [facility]. Status post 1 unit of PRBC transfusion. Dizziness and generalized weakness Coronary artery disease with prior history of stent placement Paroxysmal atrial fibrillation. Was previously anticoagulation Hypertension Diabetes type 2 [id number] Hyperlipidemia GERD Pulmonary fibrosis and on oxygen at 2 L of as needed at home. Chronic back pain History of diverticulitis with bowel perforation status post colectomy/colostomy and reversal. GI and DVT prophylaxis with Protonix and heparin subcu Plan: Patient will be continued on telemetry monitoring. Continue with aspirin and statins. Troponin trend. Monitor hemoglobin. TSH, B12, folate, iron profile, FOBT ordered.. Continue with home medications and insulin sliding scale. Cardiology was consulted due to elevated troponin level. TTE was ordered.. Follow-up closely. Prognosis is guarded. Time with Patient: Greater than 30
[2022-08-27 20:23] LABS: Glucose,Whole Blood 148 mg/dL (70-110)
[2022-08-27] MEDS ORDERED: ONDANSETRON 4 MG/2 ML VIAL IVP PRN (20:25)
[2022-08-27] MEDS ORDERED: ACETAMINOPHEN TAB 325 MG TAB PO PRN (20:25)
[2022-08-27] MEDS ORDERED: LATANOPROST 0.005% OPHTH DROPS 2.5 ML BTL BOTH EYES SCH (21:00)
[2022-08-27] MEDS: lisinopriL 20 MG TAB PO SCH (21:23)
[2022-08-27] MEDS: ATORVASTATIN 20 MG TAB PO SCH (21:24)
[2022-08-28] MEDS: HEPARIN SODIUM,PORCINE/PF 5,000 UNIT/0.5 ML SYRINGE SQ SCH ×2 (00:01→08:48)
[2022-08-28] MEDS ORDERED: HALOPERIDOL LACTATE 5 MG/ML 1 ML VIAL IM STA (01:53)
[2022-08-28 05:56] LABS: Glucose,Whole Blood 103 mg/dL (70-110)
[2022-08-28] MEDS ORDERED: PANTOPRAZOLE 40 MG TABLET PO SCH (07:30)
[2022-08-28] MEDS: lisinopriL 20 MG TAB PO SCH (08:48)
[2022-08-28] MEDS: ATORVASTATIN 20 MG TAB PO SCH (08:48)
[2022-08-28] MEDS ORDERED: ASPIRIN 325 MG TAB PO SCH (09:00)
[2022-08-28] MEDS ORDERED: glipiZIDE 5 MG TAB PO SCH (09:00)
[2022-08-28 09:26] LABS: Anisocytosis Moderate; Basophils % (A) 0 %; Eosinophils # (A) 0.3 k/uL (0-0.7); Eosinophils % (A) 3 %; HCT 33.9 % (39.0-53.0); HGB 9.5 gm/dL (13.0-17.5); Hypochromasia Marked; Lymphocytes # (A) 1.1 k/uL (1.0-4.8); Lymphocytes % (A) 14 %; MCH 19.1 pg (25.0-35.0); MCV 68.3 fL (80.0-100.0); Mean Platelet Volume 7.5; Microcytosis Marked; Monocytes # (A) 0.5 k/uL (0-1.0); Monocytes % (A) 6 %; Neutrophils # (A) 5.6 k/uL (1.3-7.7); Neutrophils % (A) 74 %; Platelet Count 256 k/uL (150-450); Poikilocytosis Marked; RBC 4.97 m/uL (4.30-5.90); RDW 21.9 % (11.5-15.5); WBC 7.6 k/uL (3.8-10.6)
[2022-08-28 09:44] LABS: ALT 17 U/L (4-49); AST 30 U/L (17-59); African American GFR (CKD) 87 (>60 ml/min/1.73 sqM); Albumin 3.7 g/dL (3.5-5.0); Alkaline Phosphatase 87 U/L (38-126); Anion Gap 6 mmol/L; Blood Urea Nitrogen 21 mg/dL (9-20); Calcium 8.3 mg/dL (8.4-10.2); Carbon Dioxide 27 mmol/L (22-30); Chloride 107 mmol/L (98-107); Glucose 122 mg/dL (74-99); Magnesium 2.1 mg/dL (1.6-2.3); Non-African American GFR(CKD) 75 (>60 ml/min/1.73 sqM); Potassium 4.4 mmol/L (3.5-5.1); Sodium 140 mmol/L (137-145); Total Bilirubin 0.9 mg/dL (0.2-1.3)
[2022-08-28 09:46] VITALS: RESP 20
--- NOTE | 2022-08-28 11:43 | CA ---
Transthoracic Echo Report Name: Justino Narvaez Age: 87 Gender: M : 1935 Exam Date: 08/27/2022 16:15 Exam Location: [place] [facility] Ht (in): 64 Wt (lb): 164 Ordering Physician: Amish Cueva DO Attending/Referring Phys: Mary Morocho MD Credit Reference Clerk Ozzie Wilkins, RD Procedure CPT: Indications: CP Cardiac Hx: Dementia; HTN; Technical Quality: Fair Contrast 1: Total Dose (mL): Contrast 2: Total Dose (mL): MEASUREMENTS (Male / Female) Normal Values 2D ECHO LV Diastolic Diameter PLAX 4.8 cm 4.2 - 5.9 / 3.9 - 5.3 cm LV Systolic Diameter PLAX 4.1 cm IVS Diastolic Thickness 1.1 cm 0.6 - 1.0 / 0.6 - 0.9 cm LVPW Diastolic Thickness 1.5 cm 0.6 - 1.0 / 0.6 - 0.9 cm LV Relative Wall Thickness 0.5 RV Internal Dim ED PLAX 3.3 cm LVOT Diameter 2.9 cm LA Systolic Diameter LX 3.8 cm 3.0 - 4.0 / 2.7 - 3.8 cm LV Diastolic Volume MOD BP 108.0 cm??? 67 - 155 / 56 - 104 cm??? LV Systolic Volume MOD BP 51.2 cm??? 22 - 58 / 19 - 49 cm??? LV Ejection Fraction MOD BP 52.6 % >= 55 % LV Diastolic Volume MOD 4C 99.8 cm??? LV Systolic Volume MOD 4C 48.9 cm??? LV Ejection Fraction MOD 4C 51.0 % LV Diastolic Length 4C 8.6 cm LV Systolic Length 4C 6.7 cm LV Diastolic Volume MOD 2C 85.3 cm??? LV Systolic Volume MOD 2C 40.7 cm??? LV Ejection Fraction MOD 2C 52.2 % LV Diastolic Length 2C 6.2 cm LV Systolic Length 2C 5.0 cm Ascending Aorta Diameter 2.6 cm M-MODE Aortic Root Diameter MM 3.0 cm LA Systolic Diameter MM 4.5 cm LA Ao Ratio MM 1.5 MV E Point Septal Separation 1.7 cm AV Cusp Separation MM 1.6 cm DOPPLER AV Peak Velocity 126.9 cm/s AV Peak Gradient 6.4 mmHg AI Peak Velocity 192.8 cm/s AI Peak Gradient 14.9 mmHg AI Pressure Half Time 318.5 ms MV Peak Velocity 78.8 cm/s MV Peak Gradient 2.5 mmHg MV Mean Velocity 55.9 cm/s MV Mean Gradient 1.3 mmHg MV Velocity Time Integral 16.0 cm MR Peak Velocity 194.9 cm/s MR Peak Gradient 15.2 mmHg Mitral E Point Velocity 66.1 cm/s Mitral A Point Velocity 78.6 cm/s Mitral E to A Ratio 0.8 MV Deceleration Time 139.4 ms MV E' Velocity 6.6 cm/s Mitral E to MV E' Ratio 10.1 TR Peak Velocity 98.2 cm/s TR Peak Gradient 3.9 mmHg Right Ventricular Systolic Press 8.9 mmHg PV Peak Velocity 95.6 cm/s PV Peak Gradient 3.7 mmHg FINDINGS Left Ventricle Left ventricular ejection fraction is estimated at 55-60 %. Borderline left ventricular hypertrophy. Normal basal systolic function. Grade 1 diastolic dysfunction. Right Ventricle Normal right ventricular size and function. Right Atrium Normal right atrial size. Left Atrium Normal left atrial size. Mitral Valve Mitral valve thickened. Minimal mitral stenosis. Trace to mild mitral regurgitation. Aortic Valve Trileaflet aortic valve. Diffuse thickening (sclerosis) of the aortic valve cusps without reduced excursion. Tricuspid Valve Trace to mild tricuspid regurgitation. Pulmonic Valve Structurally normal pulmonic valve. Pericardium Normal pericardium. No pericardial effusion. Aorta Normal size aortic root and proximal ascending aorta. CONCLUSIONS Technically difficult study for interpretation Poorly visualized endocardium and intracardiac valves Probably normal LV systolic function Previewed by: Dr. Doroteo Bennett MD (Electronically Signed) Final Date: 28 August 2022 11:42
[2022-08-28 11:48] VITALS: BP 149/72; PULSE 93; TEMP 97.8
[2022-08-28 11:55] LABS: Glucose,Whole Blood 132 mg/dL (70-110)
--- NOTE | 2022-08-28 12:56 | P.CRDCN ---
History of Present Illness Consult date: 08/28/22 Consult reason: other (abnormal troponins) Chief complaint: dizziness History of present illness: HISTORY OF PRESENT ILLNESS: [Patient is a pleasant 87-year-old male with significant past medical history of CAD with stents approximately 20 years ago, atrial fibrillation not on anticoagulation because he does not like the way he feels on the medications, hypertension, diabetes, hyperlipidemia, pulmonary fibrosis who presented to the ER with dizziness. He sees Dr. Jarvis in the office. Cardiology was consulted for abnormal troponin. Patient states that he has been feeling dizzy and weak for approximately the past 1 week with worsening of symptoms over the past 3 days. Family at the bedside reports he has also had increased confusion and agitation over the past few days. He denies room spinning but feels off balance when he was up walking. He went to urgent care and was then referred to [facility] where workup revealed hemoglobin of 6.1, he was transfused 1 unit PRBCs, and troponins were found to be abnormal therefore he was transferred to [facility]. He denies any active bleeding, black stools, tarry stools. He reports feeling better today, dizziness has resolved. He denies any chest pain or shortness of breath. Hemoglobin this morning is 9.5. Troponin 0.053, 0.072. Prior Echo 06/2019 with EF of 5560 percent. EKG shows sinus rhythm, no significant ST or T wave changes. ] REVIEW OF SYSTEMS: No fever or chills. No cough or expectoration. No diaphoresis. Patient denies headache, dizziness, blurred vision, double vision. Patient denies any stomach discomfort. No nausea, vomiting. No hematochezia. No hematemesis. Denies any black stools or blood in his stools. Denies dysuria or hematuria. No muscle weakness or numbness. No chest pain or pressure. PHYSICAL EXAMINATION: This is a [87]-year-old [male] in no apparent distress at the time of my examination. HEENT: Head is atraumatic, normocephalic. Pupils are equal, round. Sclerae anicteric. Conjunctivae are clear. Mucous membranes of the mouth are moist. Neck is supple. There is no jugular venous distention. No carotid bruit is heard. CHEST EXAMINATION: Lungs are clear to auscultation. No chest wall tenderness is noted on palpation or with deep breathing. HEART EXAMINATION: Heart regular rate and rhythm. S1, S2 heard. No murmurs, gallops or rub. ABDOMEN: Soft, nontender. Bowel sounds are heard. EXTREMITIES: 2+ peripheral pulses with no evidence of peripheral edema and no calf tenderness noted. NEUROLOGIC EXAMINATION: Patient is awake, alert and oriented x3. IMPRESSION AND PLAN: [Dizziness, improved after blood transfusion Anemia, hemoglobin 6.1 --> 9.5, no obvious active bleeding Elevated troponins CAD with stents 20 years ago Atrial fibrillation, refused to take anticoagulation in the past due to how it made him feel, current in SR Hypertension Diabetes Type 2 ] PLAN: ECHO shows likely normal LV systolic function. Dizziness has resolved post blood transfusion. Continue current regimen. Troponin elevation likely related to the stress of anemia. No further cardiology work-up indicated at this time. OK to DC from cardiology standpoint. Anemia work up as per medicine team. Follow up with Dr. Jarvis in clinic in 1 week.]. I am dictating on behalf of Dr. Tobias Sorensen's history/physical and assessment/plan. Past Medical History Past Medical History: Atrial Fibrillation, Coronary Artery Disease (CAD), Cancer, COPD, Eye Disorder, GERD/Reflux, Hyperlipidemia, Hypertension, Myocardial Infarction ([place]), Osteoarthritis (OA), Pneumonia, Renal Disease, Respiratory Disorder Additional Past Medical History / Comment(s): chronic and recurrent urinary tract infections, UTI with sepsis, diverticulitis, previous history of bowel perforation had a colostomy since reversed, BPH-prostatectomy, renal cancer (lt), skin cancer with removal, tremors(non parkinsons), bilateral glaucoma, R eye macular degeneration, chronic back pain, bronchitis, uses 02 2 liters n/c prn, hiatal hernia. pulmonary fibrosis. Last Myocardial Infarction Date:: 1999 History of Any Multi-Drug Resistant Organisms: MRSA Date of last positivie culture/infection: 07/27/20 MDRO Source:: MRSA URINE Past Surgical History: Appendectomy, Bowel Resection, Heart Catheterization With Stent, Hernia Repair, Prostate Surgery Additional Past Surgical History / Comment(s): nephrectomy(lt), lung bx-neg, prostatectomy, 2 cardiac stents, basal cell skin ca removed, cheryl cataracts, L eye steel shard removed, bowel sx 8 inches removed had colostomy since reversed- past med hx stated still has metal clip left in place, L inguinal hernia repair, skin grafts rt arm-pt fell into hot tar on construction site., nephrectomy Past Anesthesia/Blood Transfusion Reactions: No Reported Reaction Date of Last Stent Placement:: 1999 Past Psychological History: No Psychological Hx Reported Smoking Status: Never smoker Past Alcohol Use History: Occasional Past Drug Use History: None Reported - Past Family History Father Family Medical History: Osteoarthritis (OA), Pneumonia Additional Family Medical History / Comment(s): from pne after hip sx Mother Family Medical History: Cancer Additional Family Medical History / Comment(s): throat cancer Medications and Allergies Home Medications Medication Instructions Recorded Confirmed Type Atorvastatin [Lipitor] 20 mg PO DAILY 03/19/15 08/27/22 History Latanoprost [Latanoprost 0.005%] 1 drop BOTH EYES HS 03/19/15 08/27/22 History glipiZIDE [Glipizide Xl] 10 mg PO DAILY 03/19/15 08/27/22 History predniSONE [Prednisone] 5 mg PO DAILY 03/19/15 08/27/22 History lisinopriL [Zestril] 20 mg PO BID 08/27/22 08/27/22 History Allergies Allergy/AdvReac Type Severity Reaction Status Date / Time No Known Allergies Allergy Verified 08/27/22 16:09 Physical Exam Vitals: Vital Signs Temp Pulse Pulse Resp BP BP Pulse Ox 08/28/22 09:19 92 L 08/28/22 08:00 97.7 F 100 20 174/74 95 08/28/22 04:00 98.2 F 89 16 162/71 92 L 08/28/22 02:00 18 08/28/22 00:00 97.7 F 90 20 166/74 92 L 08/27/22 21:00 92 L 08/27/22 20:00 98.3 F 101 H 18 183/85 08/27/22 18:00 85 24 131/65 95 08/27/22 16:00 81 24 130/75 95 08/27/22 15:00 80 22 149/69 95 08/27/22 14:12 98.0 F 68 18 143/69 95 Intake and Output 08/27/22 08/28/22 08/28/22 22:59 06:59 14:59 Other: Voiding Method Toilet Toilet # Voids 2 2 2 Weight 66.678 kg 72.5 kg Results 08/28/22 08:39 08/28/22 08:39 Cardiac Enzymes 08/27/22 08/27/22 08/28/22 Range/Units 15:15 19:27 08:39 AST 30 (17-59) U/L Troponin I 0.053 H* 0.072 H* (0.000-0.034) ng/mL CBC 08/28/22 Range/Units 08:39 WBC 7.6 (3.8-10.6) k/uL RBC 4.97 (4.30-5.90) m/uL Hgb 9.5 L (13.0-17.5) gm/dL Hct 33.9 L (39.0-53.0) % Plt Count 256 (150-450) k/uL Comprehensive Metabolic Panel 08/28/22 Range/Units 08:39 Sodium 140 (137-145) mmol/L Potassium 4.4 (3.5-5.1) mmol/L Chloride 107 (98-107) mmol/L Carbon Dioxide 27 (22-30) mmol/L BUN 21 H (9-20) mg/dL Creatinine 0.93 (0.66-1.25) mg/dL Glucose 122 H (74-99) mg/dL Calcium 8.3 L (8.4-10.2) mg/dL AST 30 (17-59) U/L ALT 17 (4-49) U/L Alkaline Phosphatase 87 (38-126) U/L Total Protein 6.0 L (6.3-8.2) g/dL Albumin 3.7 (3.5-5.0) g/dL Current Medications Generic Name Dose Route Start Last Admin Trade Name Freq PRN Reason Stop Dose Admin Acetaminophen 650 mg 08/27/22 20:25 Acetaminophen Tab 325 Mg Tab PO Q6HR PRN Fever and/ or Pain Aspirin 325 mg 08/28/22 09:00 08/28/22 08:48 Aspirin 325 Mg Tab PO 325 mg DAILY STALIN Administration Atorvastatin Calcium 20 mg 08/27/22 20:30 08/28/22 08:48 Atorvastatin 20 Mg Tab PO 20 mg DAILY STALIN Administration Glipizide 5 mg 08/28/22 09:00 Glipizide 5 Mg Tab PO BID [facility] Heparin Sodium (Porcine) 5,000 unit 08/28/22 00:00 08/28/22 08:48 Heparin Sodium,Porcine/Pf 5,000 Unit/0.5 Ml Syringe SQ 5,000 unit Q8HR STALIN Administration Latanoprost 1 drops 08/27/22 21:00 08/27/22 21:29 Latanoprost 0.005% Ophth Drops 2.5 Ml Btl BOTH EYES Not Given HS STALIN Lisinopril 20 mg 08/27/22 21:00 08/28/22 08:48 Lisinopril 20 Mg Tab PO 20 mg BID STALIN Administration Naloxone HCl 0.2 mg 08/27/22 14:59 Naloxone 0.4 Mg/Ml 1 Ml Vial IV Q2M PRN Opioid Reversal Nitroglycerin 0.4 mg 08/27/22 14:57 Nitroglycerin Sl Tabs 0.4 Mg Tab SUBLINGUAL Q5M PRN Chest Pain Ondansetron HCl 4 mg 08/27/22 20:25 Ondansetron 4 Mg/2 Ml Vial IVP Q6HR PRN Nausea And Vomiting Pantoprazole Sodium 40 mg 08/28/22 07:30 08/28/22 06:24 Pantoprazole 40 Mg Tablet PO Not Given [facility] Intake and Output 08/27/22 08/28/22 08/28/22 22:59 06:59 14:59 Other: Voiding Method Toilet Toilet # Voids 2 2 2 Weight 66.678 kg 72.5 kg 08/28/22 08:39 08/28/22 08:39
--- NOTE | 2022-08-28 13:06 | P.CNPUL ---
History of Present Illness Consult date: 08/28/22 Requesting physician: Shonda Castle Reason for consult: dyspnea, chest pain Chief complaint: Generalized weakness, chest pain History of present illness: This is a pleasant 87-year-old male patient with a known history of hypertension, diabetes mellitus, Parkinson's disease, renal cell carcinoma, coronary artery disease, interstitial lung disease/respiratory bronchiolitis diagnosed via biopsy many years ago at the [facility]. He follows with Dr. Morocho in our office for the same. Yesterday he had developed generalized weakness and presented to urgent care and subsequently at [facility] where he had developed chest pain as well radiating down his arms. He transferred here for further evaluation. He is seen today in consultation on the selective care unit. He is currently resting comfortably in bed. Awake and alert in no acute distress. He is maintaining good O2 saturations in the 90s on room air. He's been afebrile. Hemodynamically stable. Currently denies any chest discomfort. EKG revealed normal sinus rhythm without significant ST or T wave abnormalities. Echocardiogram revealed preserved left ventricular systolic function with ejection fraction 55-60%. White count 7.6. Hemoglobin 9.5. He sodium 140. Potassium 4.4. BUN 21. Creatinine 0.93. Glucose 122. Troponin 0.072, 0.692. Cardiology has been consulted. Review of Systems REVIEW OF SYSTEMS: CONSTITUTIONAL: Generalized weakness. Denies any recent significant weight loss or weight gain. EYES: Denies change in vision. EARS, NOSE, MOUTH, THROAT: Denies headaches, denies sore throat. CARDIOVASCULAR: Positive for chest pain, no palpitations or syncopal episodes. RESPIRATORY: Denies shortness of breath, cough, congestion or hemoptysis. GASTROINTESTINAL: Denies change in appetite, denies abdominal pain GENITOURINARY: Denies hematuria, denies infections. MUSKULOSKELETAL: Denies pain, denies swelling. INTEGUMENTARY: Denies rash, denies eczema. NEUROLOGICAL: Denies recent memory loss, no recent seizure activity. PSYCHIATRIC: Denies anxiety, denies depression. HEMATOLOGIC/LYMPHATIC: Denies anemia, denies enlarged lymph nodes. Past Medical History Past Medical History: Atrial Fibrillation, Coronary Artery Disease (CAD), Cancer, COPD, Eye Disorder, GERD/Reflux, Hyperlipidemia, Hypertension, Myocardial Infarction ([place]), Osteoarthritis (OA), Pneumonia, Renal Disease, Respiratory Disorder Additional Past Medical History / Comment(s): chronic and recurrent urinary tract infections, UTI with sepsis, diverticulitis, previous history of bowel perforation had a colostomy since reversed, BPH-prostatectomy, renal cancer (lt), skin cancer with removal, tremors(non parkinsons), bilateral glaucoma, R eye macular degeneration, chronic back pain, bronchitis, uses 02 2 liters n/c prn, hiatal hernia. pulmonary fibrosis. Last Myocardial Infarction Date:: 1999 History of Any Multi-Drug Resistant Organisms: MRSA Date of last positivie culture/infection: 07/27/20 MDRO Source:: MRSA URINE Past Surgical History: Appendectomy, Bowel Resection, Heart Catheterization With Stent, Hernia Repair, Prostate Surgery Additional Past Surgical History / Comment(s): nephrectomy(lt), lung bx-neg, prostatectomy, 2 cardiac stents, basal cell skin ca removed, cheryl cataracts, L eye steel shard removed, bowel sx 8 inches removed had colostomy since reversed- past med hx stated still has metal clip left in place, L inguinal hernia repair, skin grafts rt arm-pt fell into hot tar on construction site., nephrectomy Past Anesthesia/Blood Transfusion Reactions: No Reported Reaction Date of Last Stent Placement:: 1999 Past Psychological History: No Psychological Hx Reported Smoking Status: Never smoker Past Alcohol Use History: Occasional Past Drug Use History: None Reported - Past Family History Father Family Medical History: Osteoarthritis (OA), Pneumonia Additional Family Medical History / Comment(s): from pne after hip sx Mother Family Medical History: Cancer Additional Family Medical History / Comment(s): throat cancer Medications and Allergies Home Medications Medication Instructions Recorded Confirmed Type Atorvastatin [Lipitor] 20 mg PO DAILY 03/19/15 08/27/22 History Latanoprost [Latanoprost 0.005%] 1 drop BOTH EYES HS 03/19/15 08/27/22 History glipiZIDE [Glipizide Xl] 10 mg PO DAILY 03/19/15 08/27/22 History predniSONE [Prednisone] 5 mg PO DAILY 03/19/15 08/27/22 History lisinopriL [Zestril] 20 mg PO BID 08/27/22 08/27/22 History Allergies Allergy/AdvReac Type Severity Reaction Status Date / Time No Known Allergies Allergy Verified 08/27/22 16:09 Physical Exam Vitals: Vital Signs Temp Pulse Pulse Resp BP BP Pulse Ox 08/28/22 11:48 97.8 F 93 20 149/72 95 08/28/22 09:19 92 L 08/28/22 08:00 97.7 F 100 20 174/74 95 08/28/22 04:00 98.2 F 89 16 162/71 92 L 08/28/22 02:00 18 08/28/22 00:00 97.7 F 90 20 166/74 92 L 08/27/22 21:00 92 L 08/27/22 20:00 98.3 F 101 H 18 183/85 08/27/22 18:00 85 24 131/65 95 08/27/22 16:00 81 24 130/75 95 08/27/22 15:00 80 22 149/69 95 08/27/22 14:12 98.0 F 68 18 143/69 95 Intake and Output 08/27/22 08/28/22 08/28/22 22:59 06:59 14:59 Other: Voiding Method Toilet Toilet # Voids 2 2 2 Weight 66.678 kg 72.5 kg GENERAL EXAM: Alert, pleasant 87-year-old male patient, on room air, comfortable in no apparent distress. HEAD: Normocephalic. EYES: Normal reaction of pupils, equal size. NOSE: Clear with pink turbinates. THROAT: No erythema or exudates. NECK: No masses, no JVD. CHEST: No chest wall deformity. LUNGS: Equal air entry with coarse crackles in the posterior bases. CVS: S1 and S2 normal with no audible murmur, regular rhythm. ABDOMEN: No hepatosplenomegaly, normal bowel sounds, no guarding or rigidity. SPINE: No scoliosis or deformity SKIN: No rashes CENTRAL NERVOUS SYSTEM: No focal deficits, tone is normal in all 4 extremities. EXTREMITIES: There is no peripheral edema. No clubbing, no cyanosis. Peripheral pulses are intact. Results - Laboratory Findings CBC and BMP: 08/28/22 08:39 08/28/22 08:39 Abnormal lab findings: Abnormal Labs 08/27/22 08/27/22 08/27/22 15:15 19:27 20:21 Hgb Hct MCV MCH MCHC RDW BUN Glucose POC Glucose (mg/dL) 148 H Calcium Troponin I 0.053 H* 0.072 H* Total Protein 08/28/22 08/28/22 08/28/22 08:39 08:39 11:49 Hgb 9.5 L Hct 33.9 L MCV 68.3 L MCH 19.1 L MCHC 28.0 L RDW 21.9 H BUN 21 H Glucose 122 H POC Glucose (mg/dL) 132 H Calcium 8.3 L Troponin I Total Protein 6.0 L Assessment and Plan Assessment: Generalized weakness and chest pain of unclear etiology. The patient does have a history of coronary artery disease with previous stent placement. Troponin leak. Anemia with current hemoglobin 9.5 History of coronary artery disease History of atrial fibrillation Hypertension Hyperlipidemia History of renal cell carcinoma with previous left nephrectomy History of biopsy-proven ILD/respiratory bronchiolitis Former smoker Diabetes mellitus History of diverticulitis in radiculitis with perforated bowel with colostomy and subsequent reversal Macular degeneration Plan: The patient was seen and evaluated Medications and labs reviewed Cardiology consulted May need outpatient workup for anemia Stable and on room air We will continue to follow and make further recommendations based on his clinical status I have personally seen and examined the patient, performed the documentation and the assessment and plan as written. Number of minutes spent on the visit: 20.
[2022-08-28 15:48] LABS: % Iron Saturation 2.97 (15.00-50.00); Chol/HDL Ratio 2.74 Ratio; Iron 12 ug/dL (65-175); LDL Cholesterol,Calculated 33.8 mg/dL (0.0-131.0); Total Iron Binding Capacity 391 ug/dL (228-460)
== END 2022-08-28 14:23 | disposition home or self-care (01) ==
LOC: EC 14:10 → 3SCARD 14:58
PROVIDERS: ADMIT Internal Medicine; ATTEND Internal Medicine
DX: D64.9 Anemia, unspecified (principal); R42 Dizziness and giddiness; R77.8 Other specified abnormalities of plasma proteins; I48.91 Unspecified atrial fibrillation; I10 Essential (primary) hypertension; E11.9 Type 2 diabetes mellitus without complications; I25.10 Atherosclerotic heart disease of native coronary artery without angina pectoris; J44.9 Chronic obstructive pulmonary disease, unspecified; K21.9 Gastro-esophageal reflux disease without esophagitis; E78.5 Hyperlipidemia, unspecified; I25.2 Old myocardial infarction; M19.90 Unspecified osteoarthritis, unspecified site; Z87.01 Personal history of pneumonia (recurrent); Z87.448 Personal history of other diseases of urinary system; Z87.440 Personal history of urinary (tract) infections; Z87.19 Personal history of other diseases of the digestive system; Z85.528 Personal history of other malignant neoplasm of kidney; Z90.79 Acquired absence of other genital organ(s); Z85.828 Personal history of other malignant neoplasm of skin; H35.30 Unspecified macular degeneration; R25.1 Tremor, unspecified; G89.29 Other chronic pain; M54.9 Dorsalgia, unspecified; J84.10 Pulmonary fibrosis, unspecified; Z86.14 Personal history of Methicillin resistant Staphylococcus aureus infection; Z90.49 Acquired absence of other specified parts of digestive tract; Z95.5 Presence of coronary angioplasty implant and graft; Z98.42 Cataract extraction status, left eye; Z98.41 Cataract extraction status, right eye; Z98.890 Other specified postprocedural states; Z90.5 Acquired absence of kidney; Z82.61 Family history of arthritis; Z83.6 Family history of other diseases of the respiratory system; Z80.0 Family history of malignant neoplasm of digestive organs; Z79.84 Long term (current) use of oral hypoglycemic drugs; Z79.52 Long term (current) use of systemic steroids; Z79.899 Other long term (current) drug therapy
CPT/HCPCS: 96372; 99285; 94760; 93005; 93306; 82747; 80061; 80053; 84443; 82607; 83540; 83550; 83735; 84484 ×2; 85025; G0378 ×2; J1630; J1644

== ENCOUNTER → 2023-04-01 | Outpatient (CLI) | payer MEDICARE, BC ==
[2023-04-01 17:57] LABS: Anisocytosis (M) 2+; Basophils # (A) 0.05 X 10*3/uL (0.00-0.10); Basophils % (A) 0.5 %; Elliptocytes 2+; Eosinophils # (A) 0.08 X 10*3/uL (0.04-0.35); Eosinophils % (A) 0.7 %; HCT 27.2 % (39.6-50.0); HGB 6.5 d/dL (13.0-17.0); Hypochromasia (M) 2+; Lymphocytes % (A) 7.5 %; MCH 15.7 pg (27.0-32.0); MCHC 23.9 d/dL (32.0-37.0); MCV 65.9 FL (80.0-97.0); Mean Platelet Volume 10.5 FL (9.5-12.2); Microcytosis (M) 2+; Monocytes # (A) 0.53 X 10*3/uL (0.20-1.00); Monocytes % (A) 4.9 %; NRBC Per 100 WBC 0.02 X 10*3/uL (0.00-0.01); Neutrophils # (A) 9.21 X 10*3/uL (1.80-7.70); Platelet Count 323 X 10*3/uL (140-440); RBC 4.13 X 10*6/uL (4.40-5.60); RDW 18.5 % (11.5-14.5); Target Cells 2+; Tear Drop Cells 2+; WBC 10.71 X 10*3/uL (4.50-10.00)
[2023-04-01 18:26] LABS: % Iron Saturation 2.12 (15.00-50.00); Ferritin 5.1 ng/mL (22.0-322.0); T4, Free (Free Thyroxine) 1.3 ng/dL (0.80-1.80)
== END | disposition home or self-care (01) ==
LOC: LABWHC1 09:44
PROVIDERS: ATTEND Internal Medicine
DX: D64.9 Anemia, unspecified (principal); E55.9 Vitamin D deficiency, unspecified; E03.9 Hypothyroidism, unspecified
CPT/HCPCS: 36415; 82306; 82728; 83540; 83550; 84439; 84443; 85025

== ENCOUNTER 2023-04-02 10:47 | Inpatient (IN) | payer MEDICARE, BC ==
--- NOTE | 2023-04-02 11:16 | ED ---
General Adult HPI - General Chief complaint: Recheck/Abnormal Lab/Rx Stated complaint: low hemoglobin/ Infusion requested Time Seen by Provider: 04/02/23 11:00 Source: patient, RN notes reviewed, old records reviewed Mode of arrival: ambulatory Limitations: no limitations - History of Present Illness Initial comments: This is an 88-year-old male who presents emergency Department complaining of low hemoglobin. According to the the patient has been tired and sleeping a lot lately so she went with him to see Dr. Morocho and they did blood work and it showed a low hemoglobin. Patient has had this in the past and had a internal bleed the doctor tomorrow to care for the past. Patient denies any dark black stool or blood in the stool. Patient denies any fever chills per patient denies abdominal pain. Patient denies any back pain. Patient states he just feels tired. Patient denies shortness of breath or chest pain. - Related Data Home Medications Medication Instructions Recorded Confirmed Atorvastatin [Lipitor] 20 mg PO DAILY 03/19/15 08/27/22 Latanoprost [Latanoprost 0.005%] 1 drop BOTH EYES HS 03/19/15 08/27/22 glipiZIDE [Glipizide Xl] 10 mg PO DAILY 03/19/15 08/27/22 predniSONE [Prednisone] 5 mg PO DAILY 03/19/15 08/27/22 lisinopriL [Zestril] 20 mg PO BID 08/27/22 08/27/22 Previous Rx's Medication Instructions Recorded Aspirin 325 mg PO DAILY tab 08/28/22 Pantoprazole [Protonix] 40 mg PO AC-BRKFST #30 tab 08/28/22 Ferrous Sulfate [Feosol] 325 mg PO DAILY #30 tab 09/11/22 Allergies Allergy/AdvReac Type Severity Reaction Status Date / Time No Known Allergies Allergy Verified 04/02/23 10:54 Review of Systems ROS Statement: Those systems with pertinent positive or pertinent negative responses have been documented in the HPI. ROS Other: All systems not noted in ROS Statement are negative. Past Medical History Past Medical History: Atrial Fibrillation, Coronary Artery Disease (CAD), Cancer, COPD, Eye Disorder, GERD/Reflux, Hyperlipidemia, Hypertension, Myocardial Infarction ([place]), Osteoarthritis (OA), Pneumonia, Renal Disease, Respiratory Disorder Additional Past Medical History / Comment(s): chronic and recurrent urinary tract infections, UTI with sepsis, diverticulitis, previous history of bowel perforation had a colostomy since reversed, BPH-prostatectomy, renal cancer (lt), skin cancer with removal, tremors(non parkinsons), bilateral glaucoma, R eye macular degeneration, chronic back pain, bronchitis, uses 02 2 liters n/c prn, hiatal hernia. pulmonary fibrosis. Last Myocardial Infarction Date:: 1999 History of Any Multi-Drug Resistant Organisms: MRSA Date of last positivie culture/infection: 07/27/20 MDRO Source:: MRSA URINE Past Surgical History: Appendectomy, Bowel Resection, Heart Catheterization With Stent, Hernia Repair, Prostate Surgery Additional Past Surgical History / Comment(s): nephrectomy(lt), lung bx-neg, prostatectomy, 2 cardiac stents, basal cell skin ca removed, cheryl cataracts, L eye steel shard removed, bowel sx 8 inches removed had colostomy since reversed- past med hx stated still has metal clip left in place, L inguinal hernia repair, skin grafts rt arm-pt fell into hot tar on construction site., nephrectomy Past Anesthesia/Blood Transfusion Reactions: No Reported Reaction Date of Last Stent Placement:: 1999 Past Psychological History: No Psychological Hx Reported Smoking Status: Never smoker Past Alcohol Use History: Occasional Past Drug Use History: None Reported - Past Family History Father Family Medical History: Osteoarthritis (OA), Pneumonia Additional Family Medical History / Comment(s): from pne after hip sx Mother Family Medical History: Cancer Additional Family Medical History / Comment(s): throat cancer General Exam - General Exam Comments Initial Comments: GENERAL: Patient is well-developed and well-nourished. Patient is nontoxic and well- hydrated and is in mild distress. ENT: Neck is soft and supple. No significant lymphadenopathy is noted. Oropharynx is clear. Moist mucous membranes. Neck has full range of motion without eliciting any pain. EYES: Patient's conjunctiva are pale. Extraocular movements were intact and pupils were equal round and reactive to light. Eyelids were unremarkable. PULMONARY: Unlabored respirations. Good breath sounds bilaterally. No audible rales rhonchi or wheezing was noted. CARDIOVASCULAR: There is a regular rate and rhythm without any murmurs gallops or rubs. ABDOMEN: Soft and nontender with normal bowel sounds. SKIN: Skin is clear with no lesions or rashes and otherwise unremarkable. NEUROLOGIC: Patient is alert and oriented x3. Cranial nerves II through XII are grossly intact. Motor and sensory are also intact. Normal speech, volume and content. Symmetrical smile. MUSCULOSKELETAL: Normal extremities with adequate strength and full range of motion. LYMPHATICS No significant lymphadenopathy is noted PSYCHIATRIC: Normal psychiatric evaluation. Limitations: no limitations Course Vital Signs 04/02/23 04/02/23 10:51 12:05 Temperature 98 F Pulse Rate 64 89 Respiratory 16 17 Rate Blood Pressure 139/86 137/58 O2 Sat by Pulse 95 96 Oximetry Medical Decision Making - Medical Decision Making Was pt. sent in by a medical professional or institution (, PA, CONTRACT RECRUITER, urgent care, hospital, or intermediate...) When possible be specific @ -Dr. Morocho sent the patient to the emergency department Did you speak to anyone other than the patient for history (EMS, parent, family, police, friend...)? What history was obtained from this source @ - gave almost all of the history Did you review nursing and triage notes (agree or disagree)? Why? @ -I reviewed and agree with nursing and triage notes Were old charts reviewed (outside hosp., previous admission, EMS record, old EKG, old radiological studies, urgent care reports/EKG's, intermediate records)? Report findings @ -I reviewed prior lab work in prior charts on this patient Differential Diagnosis (chest pain, altered mental status, abdominal pain women, abdominal pain men, vaginal bleeding, weakness, fever, dyspnea, syncope, headache, dizziness, GI bleed, back pain, seizure, CVA, palpatations, mental health, musculoskeletal)? @ -Differential GI Bleed: Esophageal varices, aortoenteric fistula, Claudia-Hardin, gastritis, peptic ulcer disease, diverticulosis, inflammatory bowel disease, hemorrhoids, fissure, c olitis, malignancy, Meckels diverticulum, this is not meant to be an all- inclusive list. EKG interpreted by me (3pts min.). @ -As above X-rays interpreted by me (1pt min.). @ -None done CT interpreted by me (1pt min.). @ -None done U/S interpreted by me (1pt. min.). @ -None done What testing was considered but not performed or refused? (CT, X-rays, U/S, labs)? Why? @ -None What meds were considered but not given or refused? Why? @ -None Did you discuss the management of the patient with other professionals (professionals i.e. , PA, CONTRACT RECRUITER, lab, RT, psych nurse, sexual assault social worker, associate teacher, teacher, transportation security officer, case aide)? Give summary @ -Poke with the [facility] hospitalist agreed to admit the patient admitted the patient Was smoking cessation discussed for >3mins.? @ -No Was critical care preformed (if so, how long)? @ -No Were there social determinants of health that impacted care today? How? (Homelessness, low income, unemployed, alcoholism, drug addiction, transportation, low edu. Level, literacy, decrease access to med. care, senior living, rehab)? @ -No Was there de-escalation of care discussed even if they declined (Discuss DNR or withdrawal of care, Hospice)? DNR status @ -No What co-morbidities impacted this encounter? (DM, HTN, Smoking, COPD, CAD, Cancer, CVA, ARF, Chemo, Hep., AIDS, mental health diagnosis, sleep apnea, morbid obesity)? @ -None Was patient admitted / discharged? Hospital course, mention meds given and route, prescriptions, significant lab abnormalities, going to OR and other pertinent info. @ -Patient's hemoglobin was 7.2 admitted to history was given hospital psych consulted Dr. Garces. I held blood at this point in time because hemoglobin was 7.2 Undiagnosed new problem with uncertain prognosis? @ -No Drug Therapy requiring intensive monitoring for toxicity (Heparin, Nitro, Insulin, Cardizem)? @ -No Were any procedures done? @ -No Diagnosis/symptom? @ -Anemia Acute, or Chronic, or Acute on Chronic? @ -Acute Uncomplicated (without systemic symptoms) or Complicated (systemic symptoms)? @ -Complicated Side effects of treatment? @ -No Exacerbation, Progression, or Severe Exacerbation? @ -No Poses a threat to life or bodily function? How? (Chest pain, [place], [place], pneumonia, PE, COPD, DKA, ARF, appy, cholecystitis, CVA, Diverticulitis, Homicidal, Suicidal, threat to staff... and all critical care pts) @ -Yes this could lead to hypoxia and end organ dysfunction - Lab Data Result diagrams: 04/02/23 11:08 04/02/23 11:08 Lab Results 04/02/23 04/02/23 04/02/23 Range/Units 11:08 11:08 11:08 WBC 8.9 (3.8-10.6) k/uL RBC 4.36 (4.30-5.90) m/uL Hgb 7.2 L (13.0-17.5) gm/dL Hct 27.2 L (39.0-53.0) % MCV 62.4 L (80.0-100.0) fL MCH 16.4 L (25.0-35.0) pg MCHC 26.4 L (31.0-37.0) g/dL RDW 16.8 H (11.5-15.5) % Plt Count 285 (150-450) k/uL MPV 7.6 Neutrophils % 88 % Lymphocytes % 7 % Monocytes % 3 % Eosinophils % 1 % Basophils % 0 % Neutrophils # 7.8 H (1.3-7.7) k/uL Lymphocytes # 0.7 L (1.0-4.8) k/uL Monocytes # 0.3 (0-1.0) k/uL Eosinophils # 0.0 (0-0.7) k/uL Basophils # 0.0 (0-0.2) k/uL Hypochromasia Marked Anisocytosis Slight Microcytosis Marked PT 11.0 (10.0-12.5) sec INR 1.0 (<1.2) APTT 24.8 (22.0-30.0) sec Sodium 141 (137-145) mmol/L Potassium 5.0 (3.5-5.1) mmol/L Chloride 107 (98-107) mmol/L Carbon Dioxide 24 (22-30) mmol/L Anion Gap 10 mmol/L BUN 24 H (9-20) mg/dL Creatinine 1.22 (0.66-1.25) mg/dL Est GFR (CKD-EPI)AfAm 62 (>60 ml/min/1.73 sqM) Est GFR (CKD-EPI)NonAf 54 (>60 ml/min/1.73 sqM) Glucose 242 H (74-99) mg/dL Calcium 8.8 (8.4-10.2) mg/dL Magnesium 2.2 (1.6-2.3) mg/dL Total Bilirubin 0.6 (0.2-1.3) mg/dL AST 29 (17-59) U/L ALT 17 (4-49) U/L Alkaline Phosphatase 86 (38-126) U/L Troponin I (0.000-0.034) ng/mL Total Protein 6.6 (6.3-8.2) g/dL Albumin 4.1 (3.5-5.0) g/dL Blood Type Blood Type Confirm Blood Type Recheck Bld Type Recheck Status Antibody Screen Spec Expiration Date 04/02/23 04/02/23 04/02/23 Range/Units 11:08 11:08 11:10 WBC (3.8-10.6) k/uL RBC (4.30-5.90) m/uL Hgb (13.0-17.5) gm/dL Hct (39.0-53.0) % MCV (80.0-100.0) fL MCH (25.0-35.0) pg MCHC (31.0-37.0) g/dL RDW (11.5-15.5) % Plt Count (150-450) k/uL MPV Neutrophils % % Lymphocytes % % Monocytes % % Eosinophils % % Basophils % % Neutrophils # (1.3-7.7) k/uL Lymphocytes # (1.0-4.8) k/uL Monocytes # (0-1.0) k/uL Eosinophils # (0-0.7) k/uL Basophils # (0-0.2) k/uL Hypochromasia Anisocytosis Microcytosis PT (10.0-12.5) sec INR (<1.2) APTT (22.0-30.0) sec Sodium (137-145) mmol/L Potassium (3.5-5.1) mmol/L Chloride (98-107) mmol/L Carbon Dioxide (22-30) mmol/L Anion Gap mmol/L BUN (9-20) mg/dL Creatinine (0.66-1.25) mg/dL Est GFR (CKD-EPI)AfAm (>60 ml/min/1.73 sqM) Est GFR (CKD-EPI)NonAf (>60 ml/min/1.73 sqM) Glucose (74-99) mg/dL Calcium (8.4-10.2) mg/dL Magnesium (1.6-2.3) mg/dL Total Bilirubin (0.2-1.3) mg/dL AST (17-59) U/L ALT (4-49) U/L Alkaline Phosphatase (38-126) U/L Troponin I <0.012 (0.000-0.034) ng/mL Total Protein (6.3-8.2) g/dL Albumin (3.5-5.0) g/dL Blood Type O Positive Blood Type Confirm O Positive Blood Type Recheck No Previous Record Bld Type Recheck Status CABO Indicated Antibody Screen NEGATIVE Spec Expiration Date 04/05/20232307 Disposition Clinical Impression: Anemia Disposition: ADMITTED IP TO THIS [facility] Referrals: Mary Morocho MD [Primary Care Provider] - 1-2 days Time of Disposition: 12:39
[2023-04-02 11:35] LABS: Anisocytosis Slight; Basophils % (A) 0 %; Eosinophils % (A) 1 %; HCT 27.2 % (39.0-53.0); HGB 7.2 gm/dL (13.0-17.5); Hypochromasia Marked; Lymphocytes # (A) 0.7 k/uL (1.0-4.8); Lymphocytes % (A) 7 %; MCH 16.4 pg (25.0-35.0); MCHC 26.4 g/dL (31.0-37.0); MCV 62.4 fL (80.0-100.0); Mean Platelet Volume 7.6; Microcytosis Marked; Monocytes # (A) 0.3 k/uL (0-1.0); Monocytes % (A) 3 %; Neutrophils # (A) 7.8 k/uL (1.3-7.7); Neutrophils % (A) 88 %; Platelet Count 285 k/uL (150-450); RBC 4.36 m/uL (4.30-5.90); RDW 16.8 % (11.5-15.5); WBC 8.9 k/uL (3.8-10.6)
[2023-04-02 11:46] LABS: Partial Thromboplastin Time 24.8 sec (22.0-30.0)
[2023-04-02 11:56] LABS: ALT 17 U/L (4-49); AST 29 U/L (17-59); African American GFR (CKD) 62 (>60 ml/min/1.73 sqM); Albumin 4.1 g/dL (3.5-5.0); Alkaline Phosphatase 86 U/L (38-126); Anion Gap 10 mmol/L; Blood Urea Nitrogen 24 mg/dL (9-20); Calcium 8.8 mg/dL (8.4-10.2); Carbon Dioxide 24 mmol/L (22-30); Chloride 107 mmol/L (98-107); Glucose 242 mg/dL (74-99); Magnesium 2.2 mg/dL (1.6-2.3); Non-African American GFR(CKD) 54 (>60 ml/min/1.73 sqM); Sodium 141 mmol/L (137-145); Total Bilirubin 0.6 mg/dL (0.2-1.3); Total Protein 6.6 g/dL (6.3-8.2)
[2023-04-02] MEDS ORDERED: SODIUM CHLORIDE 0.9% 1,000 ML IV ONE (12:40)
[2023-04-02] MEDS ORDERED: NALOXONE 0.4 MG/ML 1 ML VIAL IV PRN (14:22)
[2023-04-02] MEDS ORDERED: MAG HYDROX/AL HYDROX/SIMETH 30 ML CUP PO PRN (14:22)
[2023-04-02] MEDS ORDERED: Acetaminophen-Codeine 300-30mg TAB PO PRN (14:22)
[2023-04-02] MEDS ORDERED: ONDANSETRON 4 MG/2 ML VIAL IVP PRN (14:24)
[2023-04-02] MEDS ORDERED: SODIUM CHLORIDE 0.9% 1,000 ML IV SCH (14:30)
--- NOTE | 2023-04-02 14:30 | P.HPIM ---
History of Present Illness H&P Date: 04/02/23 History of present illness; patient is a 88-year-old gentleman with past medical history significant for hypertension, hyperlipidemia, diabetes mellitus who presented to the ER because of abnormal labs. Patient has been complaining of increased lethargy and weakness for the last few days. noticed that the patient is sleeping a lot. Patient is also complaining of shortness of breath on exertion, denies any chest pain. There was no complain of blood in the stools. No hematemesis. No complain of Nausea, vomiting abdominal pain. Because of this increased tiredness and shortness of breath, patient went to see his PCP who ordered labs. Later in the day patient got a call from the PCP office stating that patient hemoglobin was low and told him to come to the ER. Initial lab work done in the ER showed showed WBC 8.9, hemoglobin 7.2, platelet count 285, sodium 141, potassium 5, BUN 24, creatinine 1.2 glucose 242, AST 29, ALT 17, troponin 0.012. Patient admitted to medicine service REVIEW OF SYSTEMS: CONSTITUTIONAL: No fever,. Complaining of lethargy and weakness HEENT: No recent visual problems or hearing problems. Denied any sore throat. CARDIOVASCULAR: No chest pain, orthopnea, PND, no palpitations, no syncope. PULMONARY: As mentioned in HPI GASTROINTESTINAL: No diarrhea, no nausea, no vomiting, no abdominal pain. NEUROLOGICAL: No headaches, no weakness, no numbness. HEMATOLOGICAL: Denies any bleeding or petechiae. GENITOURINARY: Denies any burning micturition, frequency, or urgency. MUSCULOSKELETAL/RHEUMATOLOGICAL: Denies any joint pain, swelling, or any muscle pain. ENDOCRINE: Denies any polyuria or polydipsia. The rest of the 14-point review of systems is negative. PHYSICAL EXAMINATION: GENERAL: The patient is alert and oriented x3, not in any acute distress. Well developed, well nourished. HEENT: Pupils are round and equally reacting to light. EOMI. No scleral icterus. No conjunctival pallor. Normocephalic, atraumatic. No pharyngeal erythema. No thyromegaly. CARDIOVASCULAR: S1 and S2 present. No murmurs, rubs, or gallops. PULMONARY: Chest is clear to auscultation, no wheezing or crackles. ABDOMEN: Soft, nontender, nondistended, normoactive bowel sounds. No palpable organomegaly. MUSCULOSKELETAL: No joint swelling or deformity. EXTREMITIES: No cyanosis, clubbing, or pedal edema. NEUROLOGICAL: Gross neurological examination did not reveal any focal deficits. SKIN: No rashes. Assessment and plan Exertional dyspnea Anemia Hypertension Hyperlipidemia Diabetes mellitus Monitor vital signs Monitor CBC Monitor CMP Trend hemoglobin. Avoid aspirin and NSAIDs. Start IV Protonix 40 g daily. Ordered anemia workup Consult GI Resume home meds Labs and medication were reviewed.. Continue same treatment. Continue with symptomatic treatment. Resume home medication. Monitor labs and vitals. DVT and GI prophylaxis. Further recommendations as per clinical course of the patient Dictation was produced using [employer] dictation software. please excuse any grammatical, word or spelling errors. Past Medical History Past Medical History: Atrial Fibrillation, Coronary Artery Disease (CAD), Cancer, COPD, Eye Disorder, GERD/Reflux, Hyperlipidemia, Hypertension, Myocardial Infarction ([place]), Osteoarthritis (OA), Pneumonia, Renal Disease, Respiratory Disorder Additional Past Medical History / Comment(s): chronic and recurrent urinary tract infections, UTI with sepsis, diverticulitis, previous history of bowel perforation had a colostomy since reversed, BPH-prostatectomy, renal cancer (lt), skin cancer with removal, tremors(non parkinsons), bilateral glaucoma, R eye macular degeneration, chronic back pain, bronchitis, uses 02 2 liters n/c prn, hiatal hernia. pulmonary fibrosis. Last Myocardial Infarction Date:: 1999 History of Any Multi-Drug Resistant Organisms: MRSA Date of last positivie culture/infection: 07/27/20 MDRO Source:: MRSA URINE Past Surgical History: Appendectomy, Bowel Resection, Heart Catheterization With Stent, Hernia Repair, Prostate Surgery Additional Past Surgical History / Comment(s): nephrectomy(lt), lung bx-neg, prostatectomy, 2 cardiac stents, basal cell skin ca removed, cheryl cataracts, L eye steel shard removed, bowel sx 8 inches removed had colostomy since reversed- past med hx stated still has metal clip left in place, L inguinal hernia repair, skin grafts rt arm-pt fell into hot tar on construction site., nephrectomy Past Anesthesia/Blood Transfusion Reactions: No Reported Reaction Date of Last Stent Placement:: 1999 Past Psychological History: No Psychological Hx Reported Smoking Status: Never smoker Past Alcohol Use History: Occasional Past Drug Use History: None Reported - Past Family History Father Family Medical History: Osteoarthritis (OA), Pneumonia Additional Family Medical History / Comment(s): from pne after hip sx Mother Family Medical History: Cancer Additional Family Medical History / Comment(s): throat cancer Medications and Allergies Home Medications Medication Instructions Recorded Confirmed Type Atorvastatin [Lipitor] 20 mg PO DAILY 03/19/15 04/02/23 History Latanoprost [Latanoprost 0.005%] 1 drop BOTH EYES HS 03/19/15 04/02/23 History glipiZIDE [Glipizide Xl] 10 mg PO DAILY 03/19/15 04/02/23 History predniSONE [Prednisone] 5 mg PO DAILY 03/19/15 04/02/23 History lisinopriL [Zestril] 20 mg PO DAILY 08/27/22 04/02/23 History ALPRAZolam [Xanax] 0.25 mg PO BID PRN 04/02/23 04/02/23 History Aspirin EC [Ecotrin Low Dose] 81 mg PO DAILY 04/02/23 04/02/23 History Cholecalciferol [Vitamin D3 (125 125 mcg PO DAILY 04/02/23 04/02/23 History Mcg = 5000 Iu)] Donepezil [Aricept] 5 mg PO HS 04/02/23 04/02/23 History Allergies Allergy/AdvReac Type Severity Reaction Status Date / Time No Known Allergies Allergy Verified 04/02/23 13:11 Physical Exam Vitals: Vital Signs Temp Pulse Resp BP Pulse Ox 04/02/23 13:33 89 17 126/69 95 04/02/23 12:05 89 17 137/58 96 04/02/23 10:51 98 F 64 16 139/86 95 Intake and Output 04/01/23 04/02/23 04/02/23 22:59 06:59 14:59 Other: Weight 73.936 kg Results CBC & Chem 7: 04/02/23 11:08 04/02/23 11:08 Labs: Abnormal Lab Results - Last 24 Hours (Table) 04/02/23 04/02/23 Range/Units 11:08 11:08 Hgb 7.2 L (13.0-17.5) gm/dL Hct 27.2 L (39.0-53.0) % MCV 62.4 L (80.0-100.0) fL MCH 16.4 L (25.0-35.0) pg MCHC 26.4 L (31.0-37.0) g/dL RDW 16.8 H (11.5-15.5) % Neutrophils # 7.8 H (1.3-7.7) k/uL Lymphocytes # 0.7 L (1.0-4.8) k/uL BUN 24 H (9-20) mg/dL Glucose 242 H (74-99) mg/dL
[2023-04-02] MEDS: PANTOPRAZOLE 40 MG/10 ML VIAL IVP SCH (14:43)
[2023-04-02 17:22] LABS: Anisocytosis Slight; Basophils % (A) 0 %; Eosinophils % (A) 0 %; HCT 23.1 % (39.0-53.0); Hypochromasia Marked; Lymphocytes # (A) 1.2 k/uL (1.0-4.8); Lymphocytes % (A) 16 %; MCH 16.2 pg (25.0-35.0); MCHC 26.4 g/dL (31.0-37.0); MCV 61.6 fL (80.0-100.0); Microcytosis Marked; Monocytes # (A) 0.3 k/uL (0-1.0); Monocytes % (A) 5 %; Neutrophils # (A) 5.5 k/uL (1.3-7.7); Neutrophils % (A) 77 %; Platelet Count 262 k/uL (150-450); RBC 3.75 m/uL (4.30-5.90); RDW 16.9 % (11.5-15.5); WBC 7.2 k/uL (3.8-10.6)
[2023-04-02 17:30] LABS: HGB 6.1 gm/dL (13.0-17.5)
[2023-04-02] MEDS: DONEPEZIL 5 MG TAB PO SCH (22:20)
[2023-04-02] MEDS: ALPRAZolam 0.25 MG TAB PO PRN (22:20)
[2023-04-03 05:17] LABS: % Iron Saturation 1.78 (15.00-50.00); Ferritin 5.2 ng/mL (22.0-322.0)
[2023-04-03] MEDS: CHOLECALCIFEROL 125 MCG (5000 IU) TABLET PO SCH (08:54)
[2023-04-03] MEDS: PANTOPRAZOLE 40 MG/10 ML VIAL IVP SCH (08:54)
[2023-04-03] MEDS: lisinopriL 20 MG TAB PO SCH (08:54)
[2023-04-03] MEDS: ATORVASTATIN 20 MG TAB PO SCH (08:54)
--- NOTE | 2023-04-03 08:58 | P.CONS ---
History of Present Illness - Reason for Consult Consult date: 04/03/23 Anemia, history of GI bleed Requesting physician: Compa Azul - Chief Complaint Weakness, fatigue - History of Present Illness This is a pleasant 88-year-old male who presented to the emergency department yesterday with complaints of increased weakness and fatigue. He has a past medical history of atrial fibrillation not on any anticoagulation, coronary artery disease, COPD, GERD, hyperlipidemia, hypertension, DC, chronic renal disease, respiratory disorder frequent UTI renal carcinoma, and history of GI bleed. He states due to the increased weakness and fatigue he saw his PCP Dr. Reagan who ordered blood work. He was called and told his hemoglobin was low and to come to the emergency department. Patient denies any abdominal pain, nausea or vomiting. States he's just been more weak and tired sleeping more. He does have a history of a prior GI bleed and was seen by Dr. Garces. He underwent an EGD and colonoscopy in September 2022 done at [facility]. 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 Patient does state that he has been having dark stool. Admitting hemoglobin 7.2 he is status post 2 units of blood transfusion. Repeat hemoglobin was 6.1 yesterday evening. Admitting Labs CBC 8.9 hemoglobin 7.2 hematocrit 27 platelet count 285,000 INR 1.0 sodium 141 potassium 5.0B 124 creatinine 1.2 to iron 6 TIBC 337 saturation 1.78 ferritin 5.2 total bilirubin 0.6 AST 29 ALTs 17 alkaline phosphatase 86 Review of Systems REVIEW OF SYSTEMS: CARDIOPULMONARY: No chest pain or shortness of breath. Gastrointestinal: No abdominal pain or epigastric pain. No nausea or vomiting. No hematemesis, coffee-ground emesis. Reported dark stool. GENITOURINARY: No dysuria or hematuria. MUSCULOSKELETAL: Reports normal range of motion. SKIN: No rashes. No jaundice. ENDOCRINE: No chills, fevers. No excessive weight gain or loss. No polydipsia or polyuria. PSYCHIATRIC: Unremarkable. NEUROLOGY: No change in mental status. Denies dizziness, headache. ENT: Vision unremarkable. CONSTITUTIONAL: No recent weight loss. No fever, chills, night sweats. Increased fatigue and weakness. Past Medical History Past Medical History: Atrial Fibrillation, Coronary Artery Disease (CAD), Cance r, COPD, Eye Disorder, GERD/Reflux, Hyperlipidemia, Hypertension, Myocardial Infarction (DC), Osteoarthritis (OA), Pneumonia, Renal Disease, Respiratory Disorder Additional Past Medical History / Comment(s): chronic and recurrent urinary tract infections, UTI with sepsis, diverticulitis, previous history of bowel perforation had a colostomy since reversed, BPH-prostatectomy, renal cancer (lt), skin cancer with removal, tremors(non parkinsons), bilateral glaucoma, R eye macular degeneration, chronic back pain, bronchitis, uses 02 2 liters n/c prn, hiatal hernia. pulmonary fibrosis. Last Myocardial Infarction Date:: 1999 History of Any Multi-Drug Resistant Organisms: MRSA Year Discovered:: 07/27/20 MDRO Source:: MRSA URINE Past Surgical History: Appendectomy, Bowel Resection, Heart Catheterization With Stent, Hernia Repair, Prostate Surgery Additional Past Surgical History / Comment(s): nephrectomy(lt), lung bx-neg, prostatectomy, 2 cardiac stents, basal cell skin ca removed, cheryl cataracts, L eye steel shard removed, bowel sx 8 inches removed had colostomy since reversed- past med hx stated still has metal clip left in place, L inguinal hernia repair, skin grafts rt arm-pt fell into hot tar on construction site., nephrectomy Past Anesthesia/Blood Transfusion Reactions: No Reported Reaction Date of Last Stent Placement:: 1999 Past Psychological History: No Psychological Hx Reported Additional Psychological History / Comment(s): Pt resides with his spouse and they are raising their 10 yr old great grandson who has autism and blindness. Pt uses no assistive device. He drives. Smoking Status: Former smoker Past Alcohol Use History: Occasional Additional Past Alcohol Use History / Comment(s): smoked x 30 years, 1ppd, quit 1987 Past Drug Use History: None Reported - Past Family History Father Family Medical History: Osteoarthritis (OA), Pneumonia Additional Family Medical History / Comment(s): from pne after hip sx Mother Family Medical History: Cancer Additional Family Medical History / Comment(s): throat cancer Medications and Allergies Home Medications Medication Instructions Recorded Confirmed Type Atorvastatin [Lipitor] 20 mg PO DAILY 03/19/15 04/02/23 History Latanoprost [Latanoprost 0.005%] 1 drop BOTH EYES HS 03/19/15 04/02/23 History glipiZIDE [Glipizide Xl] 10 mg PO DAILY 03/19/15 04/02/23 History predniSONE [Prednisone] 5 mg PO DAILY 03/19/15 04/02/23 History lisinopriL [Zestril] 20 mg PO DAILY 08/27/22 04/02/23 History ALPRAZolam [Xanax] 0.25 mg PO BID PRN 04/02/23 04/02/23 History Aspirin EC [Ecotrin Low Dose] 81 mg PO DAILY 04/02/23 04/02/23 History Cholecalciferol [Vitamin D3 (125 125 mcg PO DAILY 04/02/23 04/02/23 History Mcg = 5000 Iu)] Donepezil [Aricept] 5 mg PO HS 04/02/23 04/02/23 History Allergies Allergy/AdvReac Type Severity Reaction Status Date / Time No Known Allergies Allergy Verified 04/02/23 13:11 Physical Exam Vitals: Vital Signs Temp Pulse Pulse Resp BP BP Pulse Ox 04/03/23 05:23 97.6 F 89 19 146/75 97 04/03/23 03:16 97.5 F L 87 18 155/71 93 L 04/03/23 02:56 97.4 F L 93 18 169/82 94 L 04/03/23 02:55 97.4 F L 102 H 18 169/82 94 L 04/03/23 02:46 98.3 F 91 18 159/82 96 04/03/23 01:45 98.3 F 91 18 159/82 96 04/03/23 00:42 98.4 F 88 18 142/76 98 04/02/23 22:36 98.6 F 90 18 143/76 91 L 04/02/23 22:16 98.2 F 90 18 146/82 93 L 04/02/23 21:58 98.6 F 89 18 141/63 91 L 04/02/23 18:31 97.9 F 87 18 137/71 94 L 04/02/23 16:03 94 17 131/67 93 L 04/02/23 13:33 89 17 126/69 95 04/02/23 12:05 89 17 137/58 96 04/02/23 10:51 98 F 64 16 139/86 95 Intake and Output 04/02/23 04/03/23 04/03/23 22:59 06:59 14:59 Intake Total 0 620 Balance 0 620 Intake: Blood Product 0 620 Rc As-1 Unit 310 [id number] Rc As-1 Unit 0 310 [id number] Other: # Voids 0 Weight 73.936 kg General appearance: The patient is alert, oriented, appears in no acute distress. HET: Head is normocephalic and atraumatic. Conjunctiva pink. Sclera anicteric. Neck: Supple without lymphadenopathy. Trachea midline. Heart: Regular. Lungs: Equal expansion, normal respiratory effort. Abdomen: Soft, nontender, nondistended with bowel sounds. No guarding or rigidity. Skin: No rashes. No jaundice. Extremities: Normal skin color and turgor. No pedal edema. Neurological: No focal deficits. Alert and oriented x3. Results CBC & Chem 7: 04/02/23 16:37 04/02/23 11:08 Labs: Abnormal Lab Results - Last 24 Hours (Table) 04/02/23 04/02/23 04/02/23 Range/Units 11:08 11:08 11:08 RBC (4.30-5.90) m/uL Hgb 7.2 L (13.0-17.5) gm/dL Hct 27.2 L (39.0-53.0) % MCV 62.4 L (80.0-100.0) fL MCH 16.4 L (25.0-35.0) pg MCHC 26.4 L (31.0-37.0) g/dL RDW 16.8 H (11.5-15.5) % Neutrophils # 7.8 H (1.3-7.7) k/uL Lymphocytes # 0.7 L (1.0-4.8) k/uL BUN 24 H (9-20) mg/dL Glucose 242 H (74-99) mg/dL Iron (65-175) UG/DL % Saturation (15.00-50.00) Ferritin (22.0-322.0) ng/mL Crossmatch See Detail 04/02/23 04/02/23 Range/Units 16:37 16:37 RBC 3.75 L (4.30-5.90) m/uL Hgb 6.1 L* (13.0-17.5) gm/dL Hct 23.1 L (39.0-53.0) % MCV 61.6 L (80.0-100.0) fL MCH 16.2 L (25.0-35.0) pg MCHC 26.4 L (31.0-37.0) g/dL RDW 16.9 H (11.5-15.5) % Neutrophils # (1.3-7.7) k/uL Lymphocytes # (1.0-4.8) k/uL BUN (9-20) mg/dL Glucose (74-99) mg/dL Iron 6 L (65-175) UG/DL % Saturation 1.78 L (15.00-50.00) Ferritin 5.2 L (22.0-322.0) ng/mL Crossmatch Assessment and Plan (1) Anemia Narrative/Plan: 88-year-old male presenting with weakness and fatigue found to be anemic with a hemoglobin is 6.5. Has a history of previous GI bleed underwent EGD colonoscopy and September of this year. EGD had oozing gastric antral angiectasia that is post probe ablation. Colonoscopy revealed 2 nonbleeding AVMs in the cecum. Likely we are dealing again with an upper GI bleed with significant drop in hemoglobin and elevated BUN. Will plan for upper endoscopy this afternoon. Current Visit: Yes Status: Acute Code(s): D64.9 - ANEMIA, UNSPECIFIED SNOMED Code(s): 733014327 (2) Melena Current Visit: Yes Status: Acute Code(s): K92.1 - MELENA SNOMED Code(s): 5856616 (3) History of upper gastrointestinal bleeding Current Visit: Yes Status: Acute Code(s): Z87.19 - PERSONAL HISTORY OF OTHER DISEASES OF THE DIGESTIVE SYSTEM SNOMED Code(s): 908776662 Plan: 1. Continue symptomatic and supportive care 2. Daily CBC, transfuse for hemoglobin less than 7 3. Keep nothing by mouth 4. Will plan for EGD today 5. Protonix 40 mg daily GI prophylaxis Thank you for this consultation, further recommendations following procedure. Thank you for allowing us to participate in the care of the patient, the GI service will sign off, gastroenterology will not be available at the hospital this weekend and through next week. If further evaluation by gastroenterology is required the patient will need transfer as per the primary team's discretion. Dr. Emilia Garces I agree with the dictator's note, documented as a scribe by Carmen Jamison.
[2023-04-03] MEDS: ALPRAZolam 0.25 MG TAB PO PRN ×2 (08:59→22:20)
[2023-04-03 10:25] LABS: Anisocytosis Moderate; Basophils % (A) 0 %; Eosinophils # (A) 0.2 k/uL (0-0.7); Eosinophils % (A) 2 %; HCT 30.6 % (39.0-53.0); Hypochromasia Marked; Lymphocytes # (A) 1.1 k/uL (1.0-4.8); Lymphocytes % (A) 14 %; MCH 19.4 pg (25.0-35.0); Mean Platelet Volume 8.2; Microcytosis Marked; Monocytes # (A) 0.4 k/uL (0-1.0); Monocytes % (A) 6 %; Neutrophils % (A) 76 %; Platelet Count 227 k/uL (150-450); Poikilocytosis Marked; RBC 4.42 m/uL (4.30-5.90); RDW 21.5 % (11.5-15.5); WBC 7.9 k/uL (3.8-10.6)
[2023-04-03 10:40] LABS: HGB 8.6 gm/dL (13.0-17.5); MCV 69.3 fL (80.0-100.0)
[2023-04-03 11:19] LABS: ALT 11 U/L (10-49); AST 11 U/L (14-35); Albumin 3.5 d/dL (3.8-4.9); Albumin/Globulin Ratio 2.06 Ratio (1.60-3.17); Alkaline Phosphatase 82 U/L (41-126); BUN/Creat Ratio 15.42 Ratio (12.00-20.00); Blood Urea Nitrogen 18.5 mg/dL (9.0-27.0); Calcium 8.3 mg/dL (8.7-10.3); Carbon Dioxide 25.3 mmol/L (21.6-31.8); Chloride 109 mmol/L (96-109); Globulin 1.7 d/dL (1.6-3.3); Glucose 87 mg/dL (70-110); Potassium 4.3 mmol/L (3.5-5.5); Sodium 144 mmol/L (135-145); Total Protein 5.2 d/dL (6.2-8.2)
--- NOTE | 2023-04-03 12:46 | P.PN ---
Subjective Progress Note Date: 04/03/23 patient is a 88-year-old gentleman with past medical history significant for hypertension, hyperlipidemia, diabetes mellitus who presented to the ER because of abnormal labs. Patient has been complaining of increased lethargy and weakness for the last few days. noticed that the patient is sleeping a lot. Patient is also complaining of shortness of breath on exertion, denies any chest pain. There was no complain of blood in the stools. No hematemesis. No complain of Nausea, vomiting abdominal pain. Because of this increased tiredness and shortness of breath, patient went to see his PCP who ordered labs. Later in the day patient got a call from the PCP office stating that patient hemoglobin was low and told him to come to the ER. Initial lab work done in the ER showed showed WBC 8.9, hemoglobin 7.2, platelet count 285, sodium 141, potassium 5, BUN 24, creatinine 1.2 glucose 242, AST 29, ALT 17, troponin 0.012. Patient admitted to medicine service 04/03. Patient seen and examined. Patient received 2 units of packed red blood cells. Currently nothing by mouth, going for EGD today REVIEW OF SYSTEMS: CONSTITUTIONAL: No fever, no malaise,. CARDIOVASCULAR: No chest pain, no palpitations, no syncope. PULMONARY: No shortness of breath, no cough, GASTROINTESTINAL: No diarrhea, no nausea, no vomiting, no abdominal pain. NEUROLOGICAL: No headaches, no weakness, PHYSICAL EXAMINATION: GENERAL: The patient is alert and oriented x3, not in any acute distress. Well developed, well nourished. HEENT: Pupils are round and equally reacting to light. EOMI. No scleral icterus. No conjunctival pallor. Normocephalic, atraumatic. No pharyngeal erythema. No thyromegaly. CARDIOVASCULAR: S1 and S2 present. No murmurs, rubs, or gallops. PULMONARY: Chest is clear to auscultation, no wheezing or crackles. ABDOMEN: Soft, nontender, nondistended, normoactive bowel sounds. No palpable organomegaly. MUSCULOSKELETAL: No joint swelling or deformity. EXTREMITIES: No cyanosis, clubbing, or pedal edema. NEUROLOGICAL: Gross neurological examination did not reveal any focal deficits. SKIN: No rashes. Assessment and plan Exertional dyspnea Iron deficiency Anemia Hypertension Hyperlipidemia Diabetes mellitus Monitor vital signs Monitor CBC Monitor CMP Trend hemoglobin. Avoid aspirin and NSAIDs. Continue IV Protonix 40 g daily. anemia workup suggestive of iron deficiency anemia Started IV iron. GI evaluated the patient, planning for EGD today Labs and medication were reviewed.. Continue same treatment. Continue with symptomatic treatment. Resume home medication. Monitor labs and vitals. DVT and GI prophylaxis. Further recommendations as per clinical course of the patient Dictation was produced using [employer] dictation software. please excuse any grammatical, word or spelling errors. Objective - Vital Signs Vital signs: Vital Signs Temp 97.9 F 04/03/23 06:41 Pulse 92 04/03/23 06:41 Resp 16 04/03/23 06:41 BP 147/79 04/03/23 06:41 Pulse Ox 95 04/03/23 06:41 FiO2 Intake & Output 04/02/23 04/03/23 04/03/23 18:59 06:59 18:59 Intake Total 620 Balance 620 Weight 73.936 kg 73.936 kg Intake: Blood Product 620 Rc As-1 Unit 310 [id number] Rc As-1 Unit 310 [id number] Other: # Voids 0 - Labs CBC & Chem 7: 04/03/23 06:27 04/03/23 06:27 Labs: Abnormal Lab Results - Last 24 Hours (Table) 04/02/23 04/02/23 04/02/23 Range/Units 11:08 11:08 11:08 RBC (4.30-5.90) m/uL Hgb 7.2 L (13.0-17.5) gm/dL Hct 27.2 L (39.0-53.0) % MCV 62.4 L (80.0-100.0) fL MCH 16.4 L (25.0-35.0) pg MCHC 26.4 L (31.0-37.0) g/dL RDW 16.8 H (11.5-15.5) % Neutrophils # 7.8 H (1.3-7.7) k/uL Lymphocytes # 0.7 L (1.0-4.8) k/uL BUN 24 H (9-20) mg/dL Glucose 242 H (74-99) mg/dL Iron (65-175) UG/DL % Saturation (15.00-50.00) Ferritin (22.0-322.0) ng/mL Crossmatch See Detail 04/02/23 04/02/23 Range/Units 16:37 16:37 RBC 3.75 L (4.30-5.90) m/uL Hgb 6.1 L* (13.0-17.5) gm/dL Hct 23.1 L (39.0-53.0) % MCV 61.6 L (80.0-100.0) fL MCH 16.2 L (25.0-35.0) pg MCHC 26.4 L (31.0-37.0) g/dL RDW 16.9 H (11.5-15.5) % Neutrophils # (1.3-7.7) k/uL Lymphocytes # (1.0-4.8) k/uL BUN (9-20) mg/dL Glucose (74-99) mg/dL Iron 6 L (65-175) UG/DL % Saturation 1.78 L (15.00-50.00) Ferritin 5.2 L (22.0-322.0) ng/mL Crossmatch
[2023-04-03 14:04] VITALS: RESP 18
[2023-04-03] MEDS ORDERED: SODIUM CHLORIDE 0.9% 500 ML 500 ML IV ONE ×2 (16:15)
[2023-04-03] MEDS ORDERED: LIDOCAINE 1% INJ 10MG/ML (20 ML MDV) ONE (16:32)
[2023-04-03] MEDS ORDERED: PROPOFOL 10 MG/ML 20 ML VIAL IV ONE (16:32)
--- NOTE | 2023-04-03 16:45 | P.PCN ---
Date of Procedure: 04/03/23 Procedure(s) Performed: BRIEF HISTORY: Patient is a 88-year-old, pleasant, white male admitted the hospital with severe symptomatic anemia and hemoglobin of 6.1 g/dL requiring unit of PRBC transfusion. Repeat hemoglobin is 8.2 g/dL. He has been having some darker stool. He had a similar episode in September of this year and underwent an EGD and colonoscopy that revealed bleeding angiectasia in the stomach that was cauterized and nonbleeding angiectasia in the cecum that was also cauterized. Because of the suspicion for upper GI source of bleeding is scheduled for an upper endoscopy today.. PROCEDURE PERFORMED: Esophagogastroduodenoscopy with cautery and biopsy. PREOPERATIVE DIAGNOSIS: Severe symptomatic anemia and black stools. IV sedation per anesthesia. PROCEDURE: After informed consent was obtained, the patient was brought into the endoscopy unit. IV sedation was administered by Anesthesia under continuous monitoring. Initially the Olympus GIF-140 video endoscope was inserted into the mouth. Esophagus intubated without any difficulty. It was gradually advanced into the stomach and duodenum and carefully examined. The bulb of the duodenum appeared normal. In the second part of the duodenum there was a 3 mm nonbleeding angiectasia that was cauterized using the cold probe. There was a 7-8 mm flat duodenal polyp noted in the second part of the duodenum adjacent to ampullary orifice and multiple biopsies were done from this area. The scope at this time was withdrawn to the stomach, adequately insufflated with air, and upon careful examination, mucosa of the antrum, appeared normal. In the proximal body there was another small nonbleeding angiectasia in the gastric body that was cauterized using the cold probe. Rest of the body, cardia and the fundus appeared normal. The scope was then withdrawn into the esophagus. Moderate hiatal hernia noted. The GE junction was located at 39 cm from the incisors. The esophagus appeared normal. There were no erosions or ulcerations seen and the patient tolerated the procedure well. IMPRESSION: 1. 3 mm nonbleeding angiectasia in the second part of the duodenum status post cautery using a gold probe. 2. Small nonbleeding angiectasia in the gastric body status post cautery 3. Small hiatal hernia 4. 7-8 mm flat duodenal polyp in the second part of the duodenum adjacent to the ampullary orifice status post multiple biopsies. RECOMMENDATIONS: The findings of this examination were discussed with the patient as well as his family.. Follow with the biopsy results. Start iron supplements twice daily. Monitor CBC on outpatient basis. Start on regular diet. He can be discharged home. Tomorrow with outpatient follow-up in one week.
[2023-04-03] MEDS: DONEPEZIL 5 MG TAB PO SCH (22:17)
[2023-04-04] MEDS ORDERED: SODIUM FERRIC GLUCONAT-SUCROSE 125 MG in SODIUM CHLORIDE 0.9% 100 ML IVPB SCH (09:00)
[2023-04-04] MEDS: PANTOPRAZOLE 40 MG/10 ML VIAL IVP SCH (09:23)
[2023-04-04] MEDS: lisinopriL 20 MG TAB PO SCH (09:24)
[2023-04-04] MEDS: ATORVASTATIN 20 MG TAB PO SCH (09:24)
[2023-04-04] MEDS: CHOLECALCIFEROL 125 MCG (5000 IU) TABLET PO SCH (09:24)
[2023-04-04 09:40] LABS: HCT 30.5 % (39.6-50.0); MCH 18.6 pg (27.0-32.0); MCHC 26.2 d/dL (32.0-37.0); MCV 70.8 FL (80.0-97.0); Mean Platelet Volume 10.1 FL (9.5-12.2); NRBC Per 100 WBC 0 X 10*3/uL (0.00-0.01); Platelet Count 232 X 10*3/uL (140-440); RBC 4.31 X 10*6/uL (4.40-5.60); RDW 24.1 % (11.5-14.5); WBC 6.82 X 10*3/uL (4.50-10.00)
[2023-04-04 09:49] VITALS: BP 171/75; PULSE 98; TEMP 98.9
[2023-04-04 11:00] LABS: Anisocytosis (M) 2+; Basophils # (A) 0.02 X 10*3/uL (0.00-0.10); Basophils % (A) 0.3 %; Eosinophils # (A) 0.22 X 10*3/uL (0.04-0.35); Eosinophils % (A) 3.2 %; Hypochromasia (M) 2+; Lymphocytes # (A) 0.98 X 10*3/uL (0.90-5.00); Lymphocytes % (A) 14.4 %; Microcytosis (M) 3+; Monocytes # (A) 0.62 X 10*3/uL (0.20-1.00); Monocytes % (A) 9.1 %; Neutrophils # (A) 4.96 X 10*3/uL (1.80-7.70); Neutrophils % (A) 72.7 %
--- NOTE | 2023-04-04 13:19 | P.DS ---
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 Patient has been complaining of increased lethargy and weakness for the last few days. noticed that the patient is sleeping a lot. Patient is also complaining of shortness of breath on exertion, denies any chest pain. There was no complain of blood in the stools. No hematemesis. No complain of Nausea, vomiting abdominal pain. Because of this increased tiredness and shortness of breath, patient went to see his PCP who ordered labs. Later in the day patient got a call from the PCP office stating that patient hemoglobin was low and told him to come to the ER. Initial lab work done in the ER showed showed WBC 8.9, hemoglobin 7.2, platelet count 285, sodium 141, potassium 5, BUN 24, creatinine 1.2 glucose 242, AST 29, ALT 17, troponin 0.012. Patient admitted to medicine service 04/03. Patient seen and examined. Patient received 2 units of packed red blood cells. Currently nothing by mouth, going for EGD today 04/04. Patient seen and examined. EGD done showed 1. 3 mm nonbleeding angiectasia in the second part of the duodenum status post cautery using a gold probe. 2. Small nonbleeding angiectasia in the gastric body status post cautery 3. Small hiatal hernia 4. 7-8 mm flat duodenal polyp in the second part of the duodenum adjacent to the ampullary orifice status post multiple biopsies. GI recommended discharging patient on iron supplements twice daily. Also to start on board on Protonix. Outpatient follow-up with GI and PCP. Discontinued aspirin for now, can resume once outpatient blood work is normal on discretion of PCP PHYSICAL EXAMINATION: GENERAL: The patient is alert and oriented x3, not in any acute distress. Well developed, well nourished. HEENT: Pupils are round and equally reacting to light. EOMI. No scleral icterus. No conjunctival pallor. Normocephalic, atraumatic. No pharyngeal erythema. No thyromegaly. CARDIOVASCULAR: S1 and S2 present. No murmurs, rubs, or gallops. PULMONARY: Chest is clear to auscultation, no wheezing or crackles. ABDOMEN: Soft, nontender, nondistended, normoactive bowel sounds. No palpable organomegaly. MUSCULOSKELETAL: No joint swelling or deformity. EXTREMITIES: No cyanosis, clubbing, or pedal edema. NEUROLOGICAL: Gross neurological examination did not reveal any focal deficits. SKIN: No rashes. Dictation was produced using [employer] dictation software. please excuse any grammatical, word or spelling errors. Patient Condition at Discharge: Stable Plan - Discharge Summary Discharge Rx Participant: No New Discharge Prescriptions: New Ferrous Sulfate [Feosol] 325 mg PO BID 30 Days #60 tab Pantoprazole Sodium [Protonix] 40 mg PO BID 30 Days #60 tab Continue Atorvastatin [Lipitor] 20 mg PO DAILY glipiZIDE [Glipizide Xl] 10 mg PO DAILY Latanoprost [Latanoprost 0.005%] 1 drop BOTH EYES HS predniSONE [Prednisone] 5 mg PO DAILY lisinopriL [Zestril] 20 mg PO DAILY Cholecalciferol [Vitamin D3 (125 Mcg = 5000 Iu)] 125 mcg PO DAILY ALPRAZolam [Xanax] 0.25 mg PO BID PRN PRN Reason: Anxiety Donepezil [Aricept] 5 mg PO HS Discontinued Aspirin EC [Ecotrin Low Dose] 81 mg PO DAILY Discharge Medication List Atorvastatin [Lipitor] 20 mg PO DAILY 03/19/15 [History] Latanoprost [Latanoprost 0.005%] 1 drop BOTH EYES HS 03/19/15 [History] glipiZIDE [Glipizide Xl] 10 mg PO DAILY 03/19/15 [History] predniSONE [Prednisone] 5 mg PO DAILY 03/19/15 [History] lisinopriL [Zestril] 20 mg PO DAILY 08/27/22 [History] ALPRAZolam [Xanax] 0.25 mg PO BID PRN 04/02/23 [History] Cholecalciferol [Vitamin D3 (125 Mcg = 5000 Iu)] 125 mcg PO DAILY 04/02/23 [History] Donepezil [Aricept] 5 mg PO HS 04/02/23 [History] Ferrous Sulfate [Feosol] 325 mg PO BID 30 Days #60 tab 04/04/23 [Rx] Pantoprazole Sodium [Protonix] 40 mg PO BID 30 Days #60 tab 04/04/23 [Rx] Follow up Appointment(s)/Referral(s): Mary Morocho MD [Primary Care Provider] - 04/10/23 8:45 am Jayshree Garces MD [STAFF PHYSICIAN] - 1 Week Activity/Diet/Wound Care/Special Instructions: Resume aspirin once okay with PCP Discharge Disposition: HOME SELF-CARE
--- NOTE | 2023-04-07 20:09 | CDI ---
Documentation Clarification Form Date: 04/07/2023 07:47:02 PM From: Mare Gibbons RN, CCDS Email: [email or web address] Admit Date: 04/03/2023 01:20:00 PM Patient Name: Justino Narvaez Visit Number: [id number] Discharge Date: 04/04/2023 11:54:00 AM ATTENTION: The Clinical Documentation Specialists (CDI) and [facility] Coding Staff appreciate your assistance in clarifying documentation. Please respond to the clarification below the line at the bottom and electronically sign. The CDI & [facility] Coding staff will review the response and follow-up if needed. Please note: Queries are made part of the Legal Health Record. If you have any questions, please contact the author of this message via ITS. Dr. Clinton Hernandez Severe symptomatic anemia is documented in the progress notes and the patient was treated with blood transfusions. Additional clarification is requested. History/Risk Factors: GI bleed in September of this year with cautery of bleeding angiectasia, HTN, HLD, DM, CAD. Presented with SOB, weakness, lethargy and reported black stools. Blood work revealed low Hgb and patient instructed to come to ER. Admitted with angiectasia of the duodenum and gastric body and anemia. Clinical indicators: H&P: "Complaining of lethargy and weakness." GI consult: "presenting with weakness and fatigue found to be anemic with a hemoglobin is 6.5." Discharge summary: "Nonbleeding angiectasia of the duodenum and gastric body Iron deficiency Anemia." 04/02-04/04 Hemoglobin: 7.2-6.1-8.6-8.0 04/02-04/04 Hematocrit: 27.2-23.1-30.6-30.5 04/02 Iron: 6 04/02 Ferritin: 5.2 04/02 BUN: 24 04/03 Px note: "Severe symptomatic anemia and black stools. Treatment: 04/03 EGD with cautery of angiectasia and biopsy of duodenal polyp; Protonix 40mg po daily; 2 units PRBC's; IV Ferric gluconate 125mg on 04/04 Please clarify the type and acuity of anemia: [ x] Acute blood loss anemia [ ] Acute on chronic blood loss anemia [ ] Iron deficiency anemia [ ] Unable to determine [ ] Other, please specify MTDD
== END 2023-04-04 11:54 | disposition home or self-care (01) | DRG 378 ==
LOC: EC 10:47 → 6NMEDSUR 12:41 → 5NMEDONC 20:24 → 4SSUR 22:10 → OBSVTOIN 04-03 13:20
PROVIDERS: ADMIT Internal Medicine; ATTEND Internal Medicine
PROC: 0W3P8ZZ Control Bleeding in Gastrointestinal Tract, Via Natural or Artificial Opening Endoscopic (ICD-10-PCS; principal; 2023-04-03 08:05)
PROC: 0DB98ZX Excision of Duodenum, Via Natural or Artificial Opening Endoscopic, Diagnostic (ICD-10-PCS; 2023-04-03 08:05)
DX: K31.811 Angiodysplasia of stomach and duodenum with bleeding (principal); D62 Acute posthemorrhagic anemia; J84.10 Pulmonary fibrosis, unspecified; I48.91 Unspecified atrial fibrillation; E11.9 Type 2 diabetes mellitus without complications; J44.9 Chronic obstructive pulmonary disease, unspecified; D50.9 Iron deficiency anemia, unspecified; E78.5 Hyperlipidemia, unspecified; G89.29 Other chronic pain; I25.10 Atherosclerotic heart disease of native coronary artery without angina pectoris; K31.7 Polyp of stomach and duodenum; K44.9 Diaphragmatic hernia without obstruction or gangrene; K55.20 Angiodysplasia of colon without hemorrhage; K21.9 Gastro-esophageal reflux disease without esophagitis; M19.90 Unspecified osteoarthritis, unspecified site; N40.0 Benign prostatic hyperplasia without lower urinary tract symptoms; Z79.899 Other long term (current) drug therapy; Z79.84 Long term (current) use of oral hypoglycemic drugs; Z79.82 Long term (current) use of aspirin; I25.2 Old myocardial infarction; Z85.528 Personal history of other malignant neoplasm of kidney; Z86.14 Personal history of Methicillin resistant Staphylococcus aureus infection; Z95.5 Presence of coronary angioplasty implant and graft; Z90.5 Acquired absence of kidney; Z79.52 Long term (current) use of systemic steroids; Z87.19 Personal history of other diseases of the digestive system; Z85.828 Personal history of other malignant neoplasm of skin; Z80.8 Family history of malignant neoplasm of other organs or systems
CPT/HCPCS: 36415; 36430; 43239; 43270; 80053; 82728; 82747; 83540; 83550; 83735; 84484; 85025; 85610; 85730; 86850; 86900; 86901; 86920; 88305; 96361; 96374; 99285